=== PATIENT | female | born 1955 | race Caucasian/White ===

== ENCOUNTER 2020-04-12 12:58 | Outpatient (CLI) | payer MEDICARE, OTHER, SELFPAY ==
--- NOTE | ~2020-04-12 | CT_ITS ---
EXAMINATION: CT abdomen pelvis wo con DATE: 04/12/2020 13:22 INDICATION: Acute flank pain TECHNIQUE: Computed tomography (CT) of the abdomen and pelvis was performed without intravenous contr ast. Automated exposure control and iterative reconstruction technique were employed. The dose-length product was 388.61 mGy-cm. COMPARISON: 07/29/2019 FINDINGS: In seen are a few <4 mm nodules at the bilateral lung bases which are likely benign.. Heart size is n ormal. Atherosclerotic coronary artery calcifications. No pericardial or pleural effusion. Liver, spl een, pancreas and bilateral adrenal glands are normal. Tiny focus of mural calcification at the gallb ladder fundus. Multiple bilateral renal cysts the largest on the left measuring up to 2.5 cm. There a re 2 tiny calcifications at the largest measuring 1-2 mm along the periphery of the largest left huang l cyst. No other calcifications at the kidneys or along the course of the normal ureters. No hydronep hrosis. Bladder is normal. Partially decompressed bladder is normal. There is moderate colonic divert iculosis with a sigmoid predominance. There is no adjacent inflammatory change to suggest diverticul itis. Small bowel and appendix are normal. Small fat-containing umbilical hernia. The uterus is not i dentified and has likely been surgically resected. No free intraperitoneal gas or fluid. No pathologi francis enlarged abdominal or pelvic lymphadenopathy. There is calcified atherosclerosis of the aorta a nd many of the other arteries. Multiple phleboliths in the pelvis. Moderate lumbar spondylosis with s evere lower lumbar facet osteoarthritis. IMPRESSION: 1. Couple <2 mm calcifications in the left kidney which could represent mural calcification at the pe riphery of a 2.5 cm left renal cyst or nonobstructing nephrolithiasis. No other urolithiasis or hydro nephrosis. 2. Diverticulosis. Reviewed, dictated and finalized at location A. IMPRESSION: 1. Couple <2 mm calcifications in the left kidney which could represent mural c alcification at the periphery of a 2.5 cm left renal cyst or nonobstructing nep hrolithiasis. No other urolithiasis or hydronephrosis. 2. Diverticulosis.
== END 2020-04-12 12:59 | disposition home or self-care (01) ==
LOC: ANHIMG 13:02
PROVIDERS: PCP Family Medicine; Visit Provider Family Medicine
DX: R10.9 Unspecified abdominal pain (principal); N20.2 Calculus of kidney with calculus of ureter; K57.90 Diverticulosis of intestine, part unspecified, without perforation or abscess without bleeding
CPT/HCPCS: 74176

== ENCOUNTER 2020-12-07 10:37 | Outpatient (CLI) | payer MEDICARE, OTHER, SELFPAY ==
--- NOTE | ~2020-12-07 | MM_ITS ---
EXAMINATION: MM screening [facility] BI w isabel HISTORY: Screening mammogram TECHNIQUE: Craniocaudal and mediolateral oblique 3-D tomosynthesis images were obtained and synthetic 2-D images were generated. CAD analysis was submitted and interpreted. COMPARISON: 10/07/2017, 10/23/2009 BREAST PARENCHYMAL COMPOSITION: The breasts are almost entirely fatty. FINDINGS: There is no evidence of suspicious mass, calcification, or architectural distortion to sugg est malignancy in either breast. There has been no suspicious interval change. IMPRESSION: 1. No mammographic evidence of malignancy. 2. Recommend routine screening mammography in one year. BI-RADS Category 1: Negative Reviewed, dictated and finalized at location A. 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
== END 2020-12-07 10:38 | disposition home or self-care (01) ==
LOC: ANHIMG 10:42
PROVIDERS: PCP Family Medicine; Visit Provider Family Medicine
DX: Z12.31 Encounter for screening mammogram for malignant neoplasm of breast (principal)
CPT/HCPCS: 77063; 77067

== ENCOUNTER 2020-12-18 14:23 | Outpatient (CLI) | payer MEDICARE, OTHER, SELFPAY ==
--- NOTE | ~2020-12-18 | MR_ITS ---
EXAMINATION: MR lumbar spine wo con EXAM DATE: 12/18/2020 15:29 INDICATION: M54.42 - Lumbago with sciatica, left side. TECHNIQUE: Multi-sequential, multiplanar MR images of the lumbar spine were obtained without contrast . Sagittal T1, T2, T2 fat saturation images. Axial T2 weighted images. There is no prior study for comparison. FINDINGS: There is mild to moderate thoracolumbar dextroscoliosis. Moderate disc disease L1-2 and L2- 3, mild to moderate at L3-4. There is 4 mm anterolisthesis L4 on L5 without spondylolysis. The conus medullaris terminates at the L1/2 level and has normal signal intensity and morphology. There are no suspicious marrow signal abnormalities. Numerous renal fluid signal intensity lesions statistically most likely cysts. Level by level evaluation: T12-L1: There is a mild diffuse disc bulge. Facet arthropathy: Mild. Neural foraminal stenosis: No stenosis. Central canal stenosis: No stenosis. L1-L2: There is a mild to moderate diffuse disc bulge. Facet arthropathy: Mild to moderate. Neural foraminal stenosis: Mild to moderate left. Central canal stenosis: Minimal. L2-L3: There is a moderate diffuse disc bulge. Facet arthropathy: Moderate. Neural foraminal stenosis: Moderate left, mild to moderate right. Central canal stenosis: Mild. L3-L4: There is a moderate diffuse disc bulge superimposed small right central protrusion narrowing l ateral recess. Facet arthropathy: Moderate. Neural foraminal stenosis: Moderate right, mild left. Central canal stenosis: Mild. L4-L5: There is a mild to moderate diffuse disc bulge. Facet arthropathy: Severe . Ligamentum flavum enlargement. Neural foraminal stenosis: Mild bilateral. Central canal stenosis: Mild to moderate. L5-S1: There is a mild diffuse disc bulge. Facet arthropathy: Severe right, moderate left. Neural foraminal stenosis: Mild to moderate left, mild right. Central canal stenosis: Mild. IMPRESSION: 1. L3-4 disc bulge, right central protrusion narrowing lateral recess. Potentially could be affectin g traversing L4 nerve root. 2. Overall moderate lumbar spondylosis as detailed above. 3. Mild to moderate thoracolumbar dextroscoliosis. Reviewed, dictated and finalized at location B. 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 L3-4 disc bulge, right central protrusion narrowing lateral recess. Potenti ally could be affecting traversing L4 nerve root. 2. Overall moderate lumbar spondylosis as detailed above. 3. Mild to moderate thoracolumbar dextroscoliosis.
== END 2020-12-18 14:24 | disposition home or self-care (01) ==
PROVIDERS: PCP Family Medicine; Visit Provider Family Medicine
DX: M54.41 Lumbago with sciatica, right side (principal); M54.42 Lumbago with sciatica, left side; M51.26 Other intervertebral disc displacement, lumbar region; M47.816 Spondylosis without myelopathy or radiculopathy, lumbar region; M41.85 Other forms of scoliosis, thoracolumbar region
CPT/HCPCS: 72148

== ENCOUNTER 2021-11-07 10:02 | Emergency (ER) | payer MEDICARE, OTHER, SELFPAY ==
--- NOTE | ~2021-11-07 | XR_ITS ---
EXAMINATION: XR knee RT min 4V EXAM DATE: 11/07/2021 10:40 INDICATION: right knee pain after a fall 3 weeks ago . TECHNIQUE: Right knee frontal, crosstable lateral, orthogonal oblique projections for interpretation . [place] projection. There are no prior studies for comparison. FINDINGS: Trace right knee joint effusion. There is moderate tricompartmental primary osteoarthriti s. There are no acute fractures or dislocations identified. There is no subcutaneous gas. The soft tissue is unremarkable. There are no radiopaque foreign bodies. IMPRESSION: 1. XR knee RT min 4V exam without acute osseous findings. 2. Moderate osteoarthritis. Reviewed, dictated and finalized at location A. 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
--- NOTE | 2021-11-07 10:16 | ED.LOWEXIN ---
HPI - Extremity Injury (Lower) General Chief Complaint: Extremity Injury, Lower Stated Complaint: rt knee pain Time Seen by Provider: 11/07/21 10:24 Source: patient, RN notes reviewed and old records reviewed Mode of arrival: ambulatory Limitations: no limitations History of Present Illness HPI Narrative: 66 year old female presents to [facility] with complaints of having chronic pain to her right knee but she fell 3 weeks ago in her basement and now is having increased discomfort to lateral aspect of her right knee. Patient states that she takes daily Mobic and has been applying heat to her knee intermittently. Patient states that ambulation aggravates her pain, she is able to bend her right knee without difficulty and no increase in pain on inversion or eversion maneuvers, some mild swelling noted to right knee. MD complaint: knee injury Onset (ago): week(s) (3) Injury: Right: knee Place: home Context: fall Treatments prior to arrival: other (Mobic) Related Data Home Medications Medication Instructions Recorded Confirmed cetirizine 10 mg tablet 10 mg PO DAILY PRN 08/01/20 11/07/21 Allergies Allergy/AdvReac Type Severity Reaction Status Date / Time latex AdvReac Mild Hives Verified 11/07/21 10:28 Contrast Media Allergy Severe Swelling Uncoded 11/07/21 10:28 of Lip/Tongue/Throat Review of Systems Review of Systems: CONSTITUTIONAL: Denies fever, chills, or sweats. EYES: Denies visual changes, redness, or discharge. ENT: Denies rhinorrhea, congestion, sore throat, or otalgia. CARDIOVASCULAR: Denies chest pain, palpitations, or edema. RESPIRATORY: Denies cough or dyspnea. GASTROINTESTINAL: Denies abdominal pain, nausea, vomiting, or diarrhea. GENITOURINARY: Denies dysuria or hematuria. SKIN: Denies rash or itching. MUSCULOSKELETAL: Denies back pain, positive right knee joint pain, or myalgia. NEUROLOGIC: Denies headache, numbness, or weakness. PSYCHIATRIC: Positive history of anxiety or depression. All systems reviewed & are unremarkable except as noted in HPI and below PMFSH Past Medical History Medical History Acute abdominal pain in right flank Acute bilateral low back pain without sciatica Acute non-recurrent maxillary sinusitis Anxiety BMI 35.0-35.9,adult Breast cancer screening by mammogram Chronic pain of right knee Colon cancer screening Fever blister Grieving Low back pain with bilateral sciatica Mild peripheral edema Overactive bladder Rash UTI (urinary tract infection) (07/14/20) Surgical History Surgical History (Updated 11/07/21 @ 10:22 by Padmini Arias NP) History of hysterectomy Family History Family History Grandparent Asthma, Onset Age: 55 Acute myocardial infarction, Onset Age: 60 Family history of chronic obstructive pulmonary disease, Onset Age: 60 Mother Family history of cardiovascular disease, Onset Age: 71 Family history of chronic obstructive pulmonary disease, Onset Age: 71 Social History Social History Smoking status: Never smoker Alcohol intake: never Substance use: never Substance use type: does not use Comments At time of signature, agree with nursing past medical, surgical, social and family history. There is no relevant family history pertinent to the presenting complaint Exam Narrative: GENERAL: Well-appearing, well-nourished, and in no acute distress. HEAD: Normocephalic, atraumatic. EYES: PERRLA and EOMI. ENT: Nares clear, no rhinorrhea or epistaxis. Mucous membranes moist. TM's normal with good light reflex, throat pink with no lesions or exudates no tonsil enlargement. NECK: Supple.no lymphadenopathy CHEST: Clear to auscultation. No respiratory distress. SAO2 96% on room air HEART: Regular rate and rhythm. No murmur heard. Normal peripheral pulses. ABDOMEN: Soft, nontender, nondistended,
[2021-11-07 10:17] VITALS: BP 152/88; PULSE 73; RESP 18; TEMP 36.4; O2SAT 96
== END 2021-11-07 11:04 | disposition home or self-care (01) ==
PROVIDERS: Emergency Provider Registered Nurse; PCP Family Medicine
DX: M25.561 Pain in right knee (principal); M17.11 Unilateral primary osteoarthritis, right knee
CPT/HCPCS: 73564; 99213; G0463

== ENCOUNTER 2022-04-02 09:53 | Outpatient (CLI) | payer MEDICARE, OTHER, SELFPAY ==
--- NOTE | ~2022-04-02 | MM_ITS ---
EXAMINATION: MM screening [facility] BI w isabel HISTORY: Screening mammogram TECHNIQUE: Craniocaudal and mediolateral oblique 3-D tomosynthesis images were obtained and synthetic 2-D images were generated. CAD analysis was submitted and interpreted. COMPARISON: 12/07/2020, 10/07/2017 bilateral screening mammogram examinations BREAST PARENCHYMAL COMPOSITION: The breasts are almost entirely fatty. FINDINGS: There is no evidence of suspicious mass, calcification, or architectural distortion to sugg est malignancy in either breast. There has been no suspicious interval change. IMPRESSION: 1. No mammographic evidence of malignancy. 2. Recommend routine screening mammography in one year. BI-RADS Category 1: Negative Reviewed, dictated and finalized at location A.
== END 2022-04-02 09:54 | disposition home or self-care (01) ==
PROVIDERS: PCP Family Medicine; Visit Provider Family Medicine
DX: Z12.31 Encounter for screening mammogram for malignant neoplasm of breast (principal)
CPT/HCPCS: 77063; 77067

== ENCOUNTER 2022-05-03 09:23 | Outpatient (CLI) | payer MEDICARE, OTHER, SELFPAY ==
--- NOTE | ~2022-05-03 | CT_ITS ---
EXAMINATION: CT abdomen pelvis wo/w con DATE: 05/03/2022 10:04 INDICATION: Intermittent gross hematuria TECHNIQUE: Computed tomography (CT) of the abdomen and pelvis was performed without and subsequently with 130 CC Omnipaque 300 intravenous contrast. Automated exposure control and iterative reconstructi on technique were employed. Exam dose: 1710.38 mGy-cm total exam DLP. COMPARISON: 05/03/2022 KUB 04/12/2020 CT abdomen pelvis FINDINGS: The lung bases are clear. Heart size is within normal limits. No pericardial or pleural eff usion. 6 mm hepatic cyst. Otherwise no hepatic space-occupying mass lesion. Normal splenic size. No pancreat ic mass lesion or calcification or ductal dilatation. The gallbladder is unremarkable. No bile duct dilatation. Normal morphology of the adrenal glands. Innumerable cysts of variable size scattered throughout both kidneys, measuring up to 1.4 cm on the r ight and 2.3 cm on the left. Approximately 3.6 x 5.2 mm nonobstructing mid right renal calculus. There are several left renal calcifications, 2 apparently associated with an up to 2.3 cm lateral lef t lower pole renal cyst and the other probably a pinpoint calyceal stone. No ureteral calculus or hydroureteronephrosis is noted on either side. Diverticulosis of left and right colon; no CT evidence of diverticulitis. Normal appendix. No bowel o bstruction, bowel wall thickening, pneumatosis or intraperitoneal free air. Status post hysterectomy. There is atherosclerotic calcification of the abdominal aorta and at the origins of the celiac and tai perior mesenteric and renal arteries. No abdominal aortic aneurysm. No intraperitoneal or retroperito kirsten or pelvic mass lesion or adenopathy or ascites. Small fat-containing umbilical hernia. No suspicious osteolytic or osteoblastic lesions. Diffuse idiopathic skeletal hyperostosis of the thoracic spine. Multilevel degenerative disc disease of the lumbar spine, most prominent at L1-2, L2-3 and L3-4, and degenerative change at the apophyseal joints, with associated grade 1 anterolisthesis at L4-5. IMPRESSION: Innumerable bilateral renal cysts Bilateral nonobstructive nephrolithiasis; no urinary tract calculus or hydroureteronephrosis Diverticulosis of left and right colon; no evidence of diverticulitis Status post hysterectomy Reviewed, dictated and finalized at Location A. Reviewed, dictated and finalized at location B. IMPRESSION: Innumerable bilateral renal cysts Bilateral nonobstructive nephrolithiasis; no urinary tract calculus or hydroure teronephrosis Diverticulosis of left and right colon; no evidence of diverticulitis Status post hysterectomy
--- NOTE | ~2022-05-03 | XR_ITS ---
EXAMINATION: XR abdomen/kub 1V DATE: 05/03/2022 09:41 INDICATION: Intermittent gross hematuria. Bilateral flank pain. TECHNIQUE: A supine view of the abdomen on 2 radiographs was obtained. COMPARISON: CT abdomen and pelvis 05/03/2022 FINDINGS: There are no dilated loops of bowel. There is a 4 mm stone in right kidney. The kidneys are obscured by bowel. There are phleboliths in right ovarian vein. There are phleboliths in the pelvis. IMPRESSION: 1. 4 mm stone in right kidney. Reviewed, dictated and finalized at location A.
[2022-05-03 09:48] LABS: Estimated Glomerular Filt Rate > 60
== END 2022-05-03 09:24 | disposition home or self-care (01) ==
PROVIDERS: PCP Family Medicine; Visit Provider Nurse Practitioner Family
DX: R31.0 Gross hematuria (principal); N20.0 Calculus of kidney; K57.30 Diverticulosis of large intestine without perforation or abscess without bleeding; K42.9 Umbilical hernia without obstruction or gangrene; M48.14 Ankylosing hyperostosis [Forestier], thoracic region; I70.0 Atherosclerosis of aorta; M47.816 Spondylosis without myelopathy or radiculopathy, lumbar region; N28.1 Cyst of kidney, acquired
CPT/HCPCS: 74018; 74178; Q9967

== ENCOUNTER 2022-05-07 08:17 | Outpatient (RCR) | payer MEDICARE, OTHER, SELFPAY ==
[2022-05-07] MEDS: diphenhydrAMINE HCl CAP 25 MG CAPSULE PO (08:46)
[2022-05-07] MEDS: FAMOTIDINE 20 MG TABLET PO (08:46)
[2022-05-07] MEDS: ACETAMINOPHEN 325 MG TABLET 650 MG PO (08:46)
[2022-05-07 08:51] VITALS: BP 99/59; PULSE 90; RESP 18; TEMP 36.6; O2SAT 95
[2022-05-07] MEDS: BEBTELOVIMAB 175 MG/2 ML VIAL IV PUSH (09:19)
[2022-05-07 10:04] VITALS: BP 107/74; PULSE 75; RESP 18; O2SAT 99
== END 2022-05-07 16:00 ==
LOC: AMCINF 08:17
PROVIDERS: PCP Family Medicine; Referring Provider Family Medicine; Visit Provider Internal Medicine Hematology & Oncology
DX: U07.1 COVID-19 (principal); I10 Essential (primary) hypertension
CPT/HCPCS: A9270; M0222; Q0222

== ENCOUNTER 2023-04-18 16:10 | Outpatient (CLI) | payer MEDICARE, OTHER, SELFPAY ==
--- NOTE | ~2023-04-18 | XR_ITS ---
EXAM: XR lumbar spine min 4V DATE: 04/18/2023 16:34 HISTORY: M54.42 - Lumbago with sciatica, left side . COMPARISON: MR lumbar spine 12/18/2020; CT abdomen and pelvis 05/03/2022. FINDINGS: 5 nonrib-bearing lumbar-type vertebral bodies. Pedicles intact. Moderate scoliosis. Mild d egenerative change in the bilateral SI joints. Scattered pelvic phleboliths and diverticular calcific ations. 5 mm retrolisthesis at L2-3. 8 mm anterolisthesis at L4-5. Multilevel moderate and severe dis c space narrowing, with vacuum phenomenon at L2-3 and L3-4. Severe facet hypertrophy and sclerosis at L4-5 and L5-S1. Interspinous narrowing at L3-4. IMPRESSION: Grade 1 listheses at L2-3 and L4-5, both have progressed since the prior examinations. Mu ltilevel severe lumbar degenerative disc disease. Multilevel severe lower lumbar facet arthropathy. Reviewed, dictated and finalized at location K. IMPRESSION: Grade 1 listheses at L2-3 and L4-5, both have progressed since the prior examinations. Multilevel severe lumbar degenerative disc disease. Multile areli severe lower lumbar facet arthropathy.
== END 2023-04-18 16:11 | disposition home or self-care (01) ==
PROVIDERS: PCP Family Medicine; Visit Provider Nurse Practitioner Family
DX: M54.42 Lumbago with sciatica, left side (principal); M54.41 Lumbago with sciatica, right side; G89.29 Other chronic pain; M51.36 Other intervertebral disc degeneration, lumbar region
CPT/HCPCS: 72110

== ENCOUNTER 2023-09-11 09:17 | Outpatient (CLI) | payer MEDICARE, OTHER, SELFPAY ==
--- NOTE | ~2023-09-11 | CT_ITS ---
CT of the Abdomen and Pelvis: Indication: UTI Technique: 2.5 mm axial scans were obtained through the abdomen and pelvis prior to and following in travenous administration of 130 cc of Omnipaque 350. Dose reduction technique was used on this scan b y utilizing automated exposure control and iterative reconstruction technique. The dose-length produc t (DLP) was 2501.83 mGy-cm. COMPARISON: 05/03/2022 Findings: Scans through the lung bases demonstrates stable subcentimeter left basilar pulmonary nodu les. There is a 1.3 x 1.1 cm stone at the right renal pelvis. There is an additional 3 mm right lower pole renal stone. Innumerable small bilateral renal cysts are present, similar to prior exam. The liver, spleen, pancreas, gallbladder, and adrenal glands are within normal limits. There are athe rosclerotic calcifications of the aorta. No lymphadenopathy. No bowel obstruction or bowel wall thickening. There is no evidence to suggest acute appendicitis. Images through the pelvis were performed. Urinary bladder unremarkable. No pelvic mass seen. No ascit es. Impression: 1.3 x 1.1 cm stone at the right renal pelvis. No hydronephrosis. Additional 3 mm right lower pole renal stone. Small bilateral renal cysts, similar to prior exam. Reviewed, dictated and finalized at [facility]. 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 No hydronephrosis. Additional 3 mm right lower pole renal stone. Small bilateral renal cysts, similar to prior exam.
[2023-09-11 09:41] LABS: Estimated Glomerular Filt Rate > 60
== END 2023-09-11 09:18 | disposition home or self-care (01) ==
DX: N39.0 Urinary tract infection, site not specified (principal); N28.1 Cyst of kidney, acquired; N20.0 Calculus of kidney
CPT/HCPCS: 74178; Q9967

== ENCOUNTER 2023-09-24 11:43 | Outpatient (CLI) | payer MEDICARE, OTHER, SELFPAY ==
--- NOTE | ~2023-09-24 | XR_ITS ---
EXAMINATION: XR abdomen/kub 1V INDICATION: Calcium kidney stones TECHNIQUE: Supine views of the abdomen were obtained on 2 radiographs. COMPARISON: 05/03/2022; CT, 09/11/2023 FINDINGS: There is a 1.6 cm stone of the right kidney lower pole. No additional urolithiasis is ident ified. Phleboliths are noted in the pelvis. The bowel gas pattern is normal. There is moderate lumbar spondylosis. There is moderate osteoarthritis of the hips. IMPRESSION: 1. Right nephrolithiasis. Reviewed, dictated and finalized at location B. 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 Right nephrolithiasis.
== END 2023-09-24 11:44 | disposition home or self-care (01) ==
PROVIDERS: PCP Family Medicine
DX: N20.0 Calculus of kidney (principal)
CPT/HCPCS: 74018

== ENCOUNTER 2024-02-20 13:29 | Emergency (ER) | payer MEDICARE, OTHER, SELFPAY ==
--- NOTE | ~2024-02-20 | CT_ITS ---
EXAMINATION: CT abdomen pelvis wo con DATE: 02/20/2024 15:20 INDICATION: Blood in stool. Low back pain. TECHNIQUE: Computed tomography (CT) of the abdomen and pelvis was performed without intravenous contr ast. Automated exposure control and iterative reconstruction technique were employed. The dose-length product was 840.36 mGy-cm. COMPARISON: CT abdomen and pelvis 09/11/2023 FINDINGS: The visualized portions of the lung bases demonstrate mild atelectasis. A calcified left evangelina ng nodule is consistent with old granulomatous disease. No pleural effusion. The heart size is normal . There are coronary artery calcifications. No pericardial effusion. The liver, spleen, gallbladder, pancreas, and adrenal glands are normal. There is a 14 mm staghorn calculus in right kidney. There is a 9 mm stone in right kidney. There is a 13 mm cyst in left kidney. There is a 14 mm cyst in left ki dney with punctate wall calcifications. There is diverticulosis of the colon without evidence of dive rticulitis. The appendix is normal. There are no dilated loops of bowel. There are no pathologically enlarged lymph nodes. There is no free intraperitoneal fluid. There is mild thoracic spondylosis and severe lumbar spondylosis. IMPRESSION: 1. Nonobstructing right kidney stones. Reviewed, dictated and finalized at location A.
[2024-02-20 13:34] VITALS: BP 141/71; PULSE 84; RESP 20; TEMP 36.5; O2SAT 97
--- NOTE | 2024-02-20 15:03 | ED.GIBLEED ---
HPI - GI Bleed General Chief complaint: GI Bleed <Mone Corbin PA-C - Last Filed: 02/20/24 15:07> Stated complaint: blood in stool <Mone Corbin PA-C - Last Filed: 02/20/24 15:07> Time Seen by Provider: 02/20/24 15:03 <ALMA DELIA Chance Last Filed: 02/20/24 15:07> Focused HPI: Patient is a 69 y/o female presents the ED with report of rectal bleeding. Patient reports she had an episode of rectal bleeding this week and didn't think much of it. She then had a bowel movement today and notice a large amount of bright red blood the toilet afterwards. She states there were several clots in blood. Unsure if it was mixed in with the stool. She has been dealing with lower back pain which she has attributed to her history of kidney stones, denies abdominal pain, nausea, vomiting, fevers. She takes ASA 81mg daily, no other blood thinners. Denies known hx of hemorrhoids. GENERAL: Well-appearing, well-nourished, and in no acute distress. HEAD: Normocephalic, atraumatic. CHEST: Clear to auscultation. ?No respiratory distress. HEART: Regular rate and rhythm.? ABD: No tenderness throughout abdomen. Normoactive BS. NEURO: ?Alert and oriented x3. Patient screened in triage and initial orders placed.? ?Additional care and disposition to be based upon?diagnostic testing and treatment. <Mone Corbin PA-C - Last Filed: 02/20/24 15:07> Source: patient <Mone Corbin PA-C - Last Filed: 02/20/24 15:07> Mode of arrival: ambulatory <ALMA DELIA Chance Last Filed: 02/20/24 15:07> Limitations: no limitations <ALMA DELIA Chance Last Filed: 02/20/24 15:07> History of Present Illness HPI Narrative: Agree with HPI <Anatoly Ruiz MD - Last Filed: 02/20/24 17:04> Related Data Home medications: Home Medications Medication Instructions Recorded Confirmed cetirizine 10 mg tablet (Zyrtec) 10 mg PO DAILY PRN allergy symptoms 08/01/20 09/24/23 fluticasone propionate 50 1 spray intranasal BID 03/05/22 09/24/23 mcg/actuation nasal spray,suspension <Mone Corbin PA-C - Last Filed: 02/20/24 15:07> Allergies/Adverse reactions: Allergies Allergy/AdvReac Type Severity Reaction Status Date / Time latex AdvReac Mild Hives Verified 02/20/24 13:31 Contrast Media Allergy Severe Swelling Uncoded 11/07/21 10:28 of Lip/Tongue/Throat <Mone Corbin PA-C - Last Filed: 02/20/24 15:07> Review of Systems Review of Systems: All systems reviewed & are unremarkable except as noted in HPI and below <Anatoly Ruiz MD - Last Filed: 02/20/24 17:04> Constitutional: Constitutional: Reports no additional constitutional complaints <Anatoly Ruiz MD - Last Filed: 02/20/24 17:04> ENT: Reports system reviewed and no additional complaints, except as documented <Anatoly Ruiz MD - Last Filed: 02/20/24 17:04> Cardiovascular: Cardiovascular: Reports no additional cardiovascular complaints <Anatoly Ruiz MD - Last Filed: 02/20/24 17:04> Respiratory: Respiratory: Reports no additional respiratory complaints <Anatoly Ruiz MD - Last Filed: 02/20/24 17:04> Gastrointestinal: Gastrointestinal: Reports no additional gastrointestinal complaints <Anatoly Ruiz MD - Last Filed: 02/20/24 17:04> Musculoskeletal: Musculoskeletal: Reports no additional musculoskeletal complaints <Anatoly Ruiz MD - Last Filed: 02/20/24 17:04> [facility] Past Medical History Medical History: Medical History Acute abdominal pain in right flank Acute bilateral low back pain without sciatica Acute non-recurrent maxillary sinusitis Acute sinusitis Allergic rhinitis Anxiety Arthritis At low risk for fall At moderate risk for fall (~09/12/22) patient fell twice within 1 year after tripping on dog and also stepping in a hole. Benign paroxysmal positional vertigo due to bilateral vestibular disorder (~2021)
[2024-02-20 15:40] LABS: Basophils Absolute Auto 0.1 K/mm3 (0.0-0.1); Basophils Percent Auto 0.8 % (0.2-1.2); Eosinophils Absolute Auto 0.2 K/mm3 (0-0.3); Eosinophils Percent Auto 2.8 % (0-4.4); Hematocrit 39.3 % (37.0-47.0); Hemoglobin 12.3 g/dL (12.0-15.0); Immature Granulocyte Absolute 0.03 K/mm3 (0.00-0.031); Immature Granulocyte Percent A 0.4 % (0-0.5); Lymphocytes Absolute Auto 2.49 K/mm3 (0.9-3.2); Lymphocytes Percent Auto 34.4 % (18.3-44.2); Mean Corpuscular HGB Conc 31.3 g/dl (32-36); Mean Corpuscular Volume 89.3 fl (80-100); Mean Platelet Volume 9.9 fl (7.4-10.4); Monocytes Absolute Auto 0.5 K/mm3 (0.1-0.6); Monocytes Percent Auto 6.2 % (2.6-8.5); Neutrophils Percent Auto 55.4 % (45.5-73.1); Platelet Count Result 238 k/mm3 (150-375); Red Cell Distribution Width 13.1 % (11.5-14.5); White Blood Count 7.2 K/mm3 (4.5-10.0)
[2024-02-20 15:50] LABS: Prothrombin Time 13.7 Seconds (11.1-14.7)
[2024-02-20 15:51] LABS: Partial Thromboplastin Time 29.9 Seconds (22.3-36.8)
[2024-02-20 16:04] LABS: Alanine Aminotransferase 15 U/L (6-35); Albumin Level 4.2 g/dL (3.5-5.1); Alkaline Phosphatase 67 U/L (38-126); Anion Gap 5 mmol/L (4-12); Aspartate Amino Transferase 20 U/L (14-36); Bilirubin,Total 0.8 mg/dL (0.2-1.3); Blood Urea Nitrogen 18 mg/dL (7-17); Calcium 9.3 mg/dL (8.4-10.2); Carbon Dioxide 28 mmol/L (22-30); Chloride 105 mmol/L (98-107); Estimated CRCL calculation 81 ml/min; Estimated Glomerular Filt Rate > 60; Glucose 92 mg/dL (65-110); Potassium 3.7 mmol/L (3.4-5.0); Sodium 138 mmol/L (137-145)
[2024-02-20 17:13] VITALS: BP 155/86; PULSE 70; RESP 16; O2SAT 100
== END 2024-02-20 17:15 | disposition home or self-care (01) ==
PROVIDERS: Physician Assistant; Emergency Provider Emergency Medicine; PCP Family Medicine
DX: K92.2 Gastrointestinal hemorrhage, unspecified (principal); E66.9 Obesity, unspecified; Z68.31 Body mass index [BMI] 31.0-31.9, adult; N32.81 Overactive bladder; M17.11 Unilateral primary osteoarthritis, right knee; Z87.440 Personal history of urinary (tract) infections; Z86.16 Personal history of COVID-19; Z90.710 Acquired absence of both cervix and uterus; Z79.82 Long term (current) use of aspirin; N20.0 Calculus of kidney
CPT/HCPCS: 36415; 74176; 80053; 85025; 85610; 85730; 86850; 86900; 86901; 99284

== ENCOUNTER 2024-03-17 07:40 | Day surgery (SDC) | payer MEDICARE, OTHER, SELFPAY ==
[2024-03-09 15:04] VITALS: BMI 31.6
[2024-03-10 14:25] VITALS: BMI 30.7
[2024-03-17 08:32] VITALS: BP 150/75; PULSE 70; RESP 16; TEMP 36.8; O2SAT 98
[2024-03-17] MEDS: LACTATED RINGERS 1,000 ML 150 ML IV CONT (08:35)
--- NOTE | 2024-03-17 09:06 | WPDANESEPPF ---
Anes - Initial Pre Proc Eval Procedure: Operation Date: 03/17/24 10:00 Proposed Procedures p Diagnostic Colonoscopy - Dayday Hardy MD Date/Time: 03/17/24 09:06 Surgeon: Dayday Hardy MD Pre Op Diagnosis: Melena, Gastrointestinal Hemorrhage Patient Data Age: 69 Gender: F Height: 1.68 m Weight: 85.3 kg Last Vital Signs Temp 36.8 C 03/17/24 08:32 Pulse 70 03/17/24 08:32 Resp 16 03/17/24 08:32 BP 150/75 H 03/17/24 08:32 Pulse Ox 98 03/17/24 08:32 O2 Del Method Room Air 03/17/24 08:32 Allergies Allergy/AdvReac Type Severity Reaction Status Date / Time latex AdvReac Mild Hives Verified 03/17/24 08:31 Contrast Media Allergy Severe Swelling Uncoded 03/17/24 08:31 of Lip/Tongue/Throat Home Medications Medication Instructions Recorded Confirmed Type cetirizine 10 mg tablet (Zyrtec) 10 mg PO DAILY PRN allergy symptoms 08/01/20 03/17/24 History fluticasone propionate 50 1 spray intranasal BID 03/05/22 03/17/24 History mcg/actuation nasal spray,suspension meclizine 25 mg tablet 25 mg PO TID PRN dizziness #60 tabs 12/05/22 03/17/24 Rx duloxetine 60 mg capsule,delayed 60 mg PO DAILY #90 caps 04/01/23 03/17/24 Rx release (Cymbalta) lisinopril 40 mg tablet 40 mg PO . b.i.d. #180 tabs 09/03/23 03/17/24 Rx simvastatin 40 mg tablet 40 mg PO QHS #90 tabs 09/03/23 03/17/24 Rx meloxicam 15 mg tablet 15 mg PO DAILY PRN pain #90 tabs 09/22/23 03/17/24 Rx amlodipine 2.5 mg tablet 2.5 mg PO DAILY #90 tabs 09/24/23 03/17/24 Rx vibegron 75 mg tablet (Gemtesa) 75 mg PO DAILY 03/03/24 03/17/24 History Patient hx anesthesia problems: none Family hx anesthesia problems: none Results Review: All pre-operative results and documents have been reviewed as part of the pre-operative evaluation. [facility] Past Medical History Medical History Acute abdominal pain in right flank Acute bilateral low back pain without sciatica Acute non-recurrent maxillary sinusitis Acute sinusitis Allergic rhinitis Anxiety Arthritis At low risk for fall At moderate risk for fall (~09/12/22) patient fell twice within 1 year after tripping on dog and also stepping in a hole. Benign paroxysmal positional vertigo due to bilateral vestibular disorder (~2021) BMI 32.0-32.9,adult BMI 33.0-33.9,adult BMI 35.0-35.9,adult Breast cancer screening by mammogram Normal mammogram 04/02/2022. Chronic pain of right knee X-ray on 11/07/2021 reveals moderate tricompartmental osteoarthritis with small effusion. Colon cancer screening Conjunctivitis COVID-19 (05/04/22) tested positive 05/05/2022. COVID-19 (03/12/23) 2nd episode starting 03/12/2023. Ear itching Fatigue TSH normal at 1.68 hemoglobin 13.3 on 09/17/2023. Fever blister Grieving Gross hematuria (~03/2023) Urinalysis with 3+ blood, 2+ protein, 3+ leukocytes, bacteria on 09/17/2023. Hypertrophy of both inferior nasal turbinates Low back pain with bilateral sciatica X-ray of the lumbar spine on 04/18/2023 reveals diffuse moderate multilevel degenerative disc disease and severe degenerative disc disease at L2-L3 and L3-L4 with severe facet arthropathy at L4-L5 and L5-S1 with anterior listhesis 8 mm L4 on L5 and retrolisthesis of 5 mm on L2-L3. Moderate scoliosis. Mild peripheral edema Nasal congestion Nasal obstruction Nasal septal deviation Obesity (BMI 30.0-34.9) Osteoarthritis of right knee Otalgia of both ears Overactive bladder PND (post-nasal drip) Rhinorrhea Seasonal allergies UTI (urinary tract infection) UTI (urinary tract infection), uncomplicated (07/14/20) Surgical History Surgical History H/O lithotripsy History of hysterectomy Family History Family History Grandparent Asthma, Onset Age: 55 Acute myocardial infarction, Onset Age: 60 Family history of chronic obstructive pulmonary disease, On
--- NOTE | 2024-03-17 09:11 | WPDHPUPDATE1 ---
History and Physical Update Update Date/Time: 03/17/24 09:11 History and Physical has been reviewed, including an updated exam of the patient. There are NO changes in the patient's condition. Risks, benefits, and alternatives have been discussed and questions answered. Patient agrees to proceed with procedure.
[2024-03-17 09:57] VITALS: BP 130/73; PULSE 78; RESP 16
[2024-03-17 10:07] VITALS: BP 159/82; PULSE 62; RESP 16; O2SAT 99
[2024-03-17 10:20] VITALS: BP 146/75; PULSE 62; RESP 16; O2SAT 100
--- NOTE | 2024-03-17 10:56 | WPDANESPN ---
Anes - Prog Note Post-Op Date/Time: 03/17/24 10:56 Cardiovascular status: normal Respiratory status: normal Airway patency: baseline Mental status: baseline Post-Op hydration status: normal Vital Signs: Last Vital Signs Temp 36.8 C 03/17/24 08:32 Pulse 62 03/17/24 10:20 Resp 16 03/17/24 10:20 BP 146/75 H 03/17/24 10:20 Pulse Ox 100 03/17/24 10:20 O2 Del Method Room Air 03/17/24 10:20 Pain Score (VAS): 0 I/O: Intake & Output 03/16/24 03/17/24 03/17/24 23:59 07:59 15:59 Intake Total 600 Balance 600 Patient Feedback: Patient satisfied with anesthetic care.
== END 2024-03-17 10:31 | disposition home or self-care (01) ==
PROVIDERS: PCP Family Medicine; Visit Provider Internal Medicine Gastroenterology
PROC: 0DJD8ZZ Inspection of Lower Intestinal Tract, Via Natural or Artificial Opening Endoscopic (ICD-10-PCS; CPT 45378; principal; 2024-03-17 10:00)
DX: K62.5 Hemorrhage of anus and rectum (principal); K57.30 Diverticulosis of large intestine without perforation or abscess without bleeding; K64.8 Other hemorrhoids
CPT/HCPCS: 45378

== ENCOUNTER 2025-06-26 14:36 | Emergency (ER) | payer MEDICARE, SELFPAY ==
--- NOTE | ~2025-06-26 | XR_ITS ---
EXAMINATION: XR chest 2V, 06/26/2025 16:42 CDT HISTORY: sob, covid + COMPARISON: No comparisons available. Technique: 2 views obtained. Findings: The lungs are clear, no effusion. No pneumothorax. Heart is normal size. Mediastinal and hilar contours are within normal limits. Bony thorax no acute abnormality. Impression: No acute cardiopulmonary abnormality. Reviewed, dictated and finalized at location A. Impression: No acute cardiopulmonary abnormality.
--- NOTE | ~2025-06-26 | CT_ITS ---
EXAMINATION: CT chest abdomen pelvis wo con, 06/26/2025 18:00 CDT HISTORY: sob, Covid+; myalgias; hematuria; hx stones COMPARISON: No comparisons available. TECHNIQUE: CT scan of the chest, abdomen and pelvis was performed without contrast One or more of the following dose reduction techniques were used: automated exposure control, adjustment of the mA and/or kV according to patient size, use of iterative reconstruction technique. Unless otherwise stated, incidental findings do not require dedicated follow up imaging FINDINGS: CT chest: No significant coronary calcification is present ([id number]) LUNGS: No tracheomalacia. No bronchiectasis. Minimal emphysematous changes. Scattered sub-2 mm micronodules. No significant pulmonary fibrotic changes. HEART AND PERICARDIUM: Within normal limits. AORTA: Normal caliber aorta. MEDIASTINUM: Unremarkable. THYROID: The thyroid is unremarkable. CT abdomen: LIVER: Unremarkable, liver contours intact, no lesions. SPLEEN: Spleen prominent.. KIDNEYS: Right Kidney: Right kidney there are renal calculi the largest in the midpole 1.3 x 1 cm, no hydronephrosis or hydroureter. Left Kidney: Left kidney renal calculi the largest mid pole 3 mm, no hydronephrosis, subcentimeter probable renal cysts. ADRENAL GLANDS: Unremarkable. PANCREAS: Mild pancreatic atrophy. GALLBLADDER/BILIARY: Unremarkable. No biliary dilatation. STOMACH AND ESOPHAGUS: The stomach is decompressed. BOWEL/MESENTERY: Moderate fecal content. No colitis or diverticulitis. Appendix normal. Mesentery normal. No dilated small bowel loops. RETROPERITONEUM: Unremarkable AORTA/VASCULATURE: Normal caliber aorta. FREE FLUID OR FREE AIR: No free fluid.. CT pelvis: SOLID ORGANS/REPRODUCTIVE: Post hysterectomy. No adnexal mass. BLADDER: Within normal limits. LYMPHADENOPATHY: No lymphadenopathy. OSSEOUS STRUCTURES: No acute osseous abnormality.No suspicious lesions. OVERLYING SOFT TISSUES: Small fat-containing umbilical hernia. IMPRESSION: 1. No acute process identified. Incidental findings detailed above. 2. Bilateral renal calculi. No hydronephrosis Reviewed, dictated and finalized at location A.
[2025-06-26 14:43] VITALS: BP 147/72; PULSE 78; RESP 22; TEMP 38.3; O2SAT 95
--- OUTSIDE RECORDS SUMMARY | 2025-06-26 15:28 | XMS_ITS | Encounter Summary ---
Author Organization [facility] Address 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
--- OUTSIDE RECORDS SUMMARY | 2025-06-26 15:28 | XMS_ITS | Clinical Summary ---
Author Organization [facility] Address [facility] [place] [address] Care Team Providers Care Golf Coach Name Role Phone Unavailable Primary Care Provider Unavailabl e Social History Tobacco Use Types Packs/Day Years Used Date Smoking Tobacco: Never Assessed Comments Unknown Sex and Gender Information Value Date Recorded Sex Assigned at Not on file Legal Sex Female 4:39 PM CDT Gender Identity Not on file Sexual Orientation Not on file Plan of Treatment Health Maintenance Due Date Last Done Comments Colorectal Cancer Screening Colonoscopy (10 Years) 1955 Hepatitis C 1973 DTaP, Tdap and Td Vaccines ( 1 - Tdap) 1974 Mammogram Screening 1995 Pneumococcal Vaccine: 50+ Ye ars (1 of 1 - PCV) 2005 Zoster Vaccines (1 of 2) 2005 Dexa Scan (General) 01/15/2020 COVID-19 Vaccine ( - 2023-2 5 season) 2025 RSV Immunization or 60+ Years (1 - 1-dose 75+ series) 2030 Meningococcal B Vaccine Aged Out No l onger eligible based on patient's age to complete this topic Meningococcal Vaccine Aged Out No vasyl rekha eligible based on patient's age to complete this topic RSV Immunizations Under 20 Months Aged Out No longer eligible based on patient's age to complete this topic
--- OUTSIDE RECORDS SUMMARY | 2025-06-26 15:28 | XMS_ITS | Encounter Summary ---
Author Organization [facility] Address 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 Gender Identity Not on file Sexual Orientation Not on file documented as of this encounter Plan of Treatment Not on file documented as of this encounter Procedures Procedure Name Priority Date/Time Associated Diagnosis Comments POC GLUCOSE Routine 07/10/2006 7:36 AM CDT documented in this encounter Results * (ABNORMAL) POC GLUCOSE (07/10/2006 7:36 AM CDT) GLUCOSE POC 141(H) 65 - 109 mg/dL INTERFACE SYSTEM 07/10/2006 7:36 AM CDT us Brad Nolan MD POINT OF CARE TESTING Final Resu lt INTERFACE SYSTEM Refer to clinic/hospital department documented in this encounter Visit Diagnoses Diagnosis Heart disease, unspecified- Primary documented in this encounter
--- OUTSIDE RECORDS SUMMARY | 2025-06-26 15:28 | XMS_ITS | Clinical Summary ---
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
--- OUTSIDE RECORDS SUMMARY | 2025-06-26 15:28 | XMS_ITS | Encounter Summary ---
Author Organization [facility] Address [address] [place] [address] Care Team Providers Care Perinatology Physician Name Role Phone Unavailable Primary Care Provider Unavailabl e Encounter Details Date Type Department Care Team (Late st Contact Info) Description 07/10/2006 Outpatient Historical [facility] [place] 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
--- OUTSIDE RECORDS SUMMARY | 2025-06-26 15:28 | XMS_ITS | Encounter Summary ---
Author Organization [facility] Address 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
--- OUTSIDE RECORDS SUMMARY | 2025-06-26 15:29 | XMS_ITS | Encounter Summary ---
Author Organization [facility] Address 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
--- NOTE | 2025-06-26 15:39 | ED_ITS ---
HPI - SOB/Dyspnea General Chief Complaint: Shortness of Breath/Dyspnea Stated Complaint: +Covid test, weakness, SOB, body aches Time Seen by Provider: 06/26/25 15:19 Source: patient Mode of arrival: EMS Limitations: no limitations History of Present Illness HPI Narrative: Patient presents with report of feeling weak and increasing shortness of breath. She started having myalgias and arthralgias. Symptoms began . They initially seem like they started in the left side of her back and She has a history of bladder and kidney infection and thought this might be the issue however then multiple areas of the body came involved in these became generalized. She has had decreased p.o. intake. She vomited yesterday but not today and no current nausea. Her granddaughter notified her that she test positive for COVID and so she took a home test and also tested positive. No underlying /personal history of respiratory conditions. She states she has been having fevers. When asked if she took any medication for pain or fever, she states she used amonophaline, amonopaline, amphetamine...something like that.When asked if she might mean acetaminophen/Tylenol or amitriptyline, she states no. She states she does not believe it would be on her medication list. Unclear with this medication is. Otherwise she has not taken any medications prior to arrival. No hemoptysis. She reports some swelling in her bilateral feet. She denies any chest pain. Nonsmoker. Patient is retired but stays very active and is in the process of adopting 4 children. Has had COVID before. Related Data Home Medications ?Medication ?Instructions ?Recorded ?Confirmed ?Last Taken ?Type cetirizine 10 mg tablet (Zyrtec) 10 mg PO DAILY PRN al lergy symptoms 08/01/20 11/15/24 Unknown History fluticasone propionate 50 1 spray intranasal BID 03/0511/15/24 Unknown History mcg/actuation nasal spray,suspension Allergies Allergy/AdvReac Type Severity Reaction Status Date / Time latex AdvReac Mild Hives Verified 03/17/24 08:31 Contrast Media Allergy Severe Swelling Uncoded 03/17/24 08:31 of Lip/Tongue/Throat PMFSH Past Medical History Medical History Lower GI bleed Hematochezia Conjunctivitis Acute sinusitis Throat pain Chronic sinusitis BMI 31.0-31.9,adult Iron deficiency anemia, unspecified (~04/06/24) hemoglobin 12.3 on 02/20/2024. Hemoglobin 10.9 with iron 25 with 6% saturation and ferritin 7 on 04/06/2024. Hemoglobin 12.8 with iron 57 with 16% saturation and ferritin 13 on 10/15/2024. At low risk for fall Fatigue TSH normal at 1.68 hemoglobin 13.3 on 09/17/2023. Gross hematuria (~03/2023) Urinalysis with 3+ blood, 2+ protein, 3+ leukocytes, bacteria on 09/17/2023. Urinalysis with trace protein and 2+ blood with 3-10 RBCs on 10/15/2024. COVID-19 (03/12/23) 2nd episode starting 03/12/2023. Benign paroxysmal positional vertigo due to bilateral vestibular disorder (~2021) At moderate risk for fall (~09/12/22) patient fell twice within 1 year after tripping on dog and also stepping in a hole. COVID-19 (05/04/22) tested positive 05/05/2022. BMI 32.0-32.9,adult BMI 33.0-33.9,adult Obesity (BMI 30.0-34.9) Osteoarthritis of right knee Seasonal allergies Arthritis Mild peripheral edema Chronic pain of right knee X-ray on 11/07/2021 reveals moderate tricompartmental osteoarthritis with small effusion. PND (post-nasal drip) Otalgia of both ears Ear itching Allergic rhinitis Rhinorrhea Hypertrophy of both inferior nasal turbinates Nasal septal deviation Nasal obstruction Nasal congestion UTI (urinary tract infection) Overactive bladder Anxiety Low back pain with bilateral sciatica X-ray of the lumbar spine on 04/18/2023 reveals diffuse moderate multilevel degenerative disc disease and severe degenerative disc disease at L2-L3 and L3-L4 with severe facet arthropathy at L4-L5 and L5-S1 with anterior listhesis 8 mm L4 on L5 and retrolisthesis of 5 mm on L2-L3. Moderate scoliosis. (07/14/20) Acute non-recurrent maxillary sinusitis BMI 35.0-35.9,adult Colon cancer screening normal colonoscopy 03/17/2024 with internal hemorrhoids with no active bleeding. Fever blister Grieving Breast cancer screening by mammogram Normal mammogram 04/02/2022. Acute abdominal pain in right flank Acute bilateral low back pain without sciatica UTI (urinary tract infection), uncomplicated Surgical History Surgical History H/O lithotripsy History of hysterectomy Family History Family History Grandparent Asthma, Onset Age: 55 Acute myocardial infarction, Onset Age: 60 Family history of chronic obstructive pulmonary disease, Onset Age: 60 Diabetes mellitus Mother Family history of cardiovascular disease, Onset Age: 71 Family history of chronic obstructive pulmonary disease, Onset Age: 71 Father Asthma Hypertension Heart disease History of myocardial infarction Sibling COPD (chronic obstructive pulmonary disease) Social History Social History Smoking status: Never smoker Alcohol intake: never Substance use: never Substance use type: does not use Lack of Food: Never True Current Housing: I Have Housing Concerned About Future Housing: No Difficulty Paying Gas/Electric Bills: No Difficulty Paying for Meds: No Currently Unemployed: No Education: High School Diploma/GED Difficulty w/ Childcare or Family Care: No Living arrangements: with family Additional living arrangements comments: Adopting 4 children; Daughter and grand-daughter live near as well Occupation/Education: retired Additional occupation/education comments: 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 EYES: Non injected, non icteric ENT: Nares clear, no rhinorrhea or epistaxis. Gross auditory acuity intact. NECK: Supple. No meningismus. CHEST: Speaking in full sentences. No respiratory distress. Lungs clear to auscultation bilaterally without crackles wheezes, or areas of focal consolidation. Nonlabored HEART: Regular rate and rhythm. . ABDOMEN: Soft, nondistended. No rigidity or guarding. Not peritoneal EXTREMITIES: Normal range of motion. No bilateral lower extremity pedal or tibial edema on exam despite patient's reported subjective foot swelling. SKIN: Warm, dry, no rash. NEURO: No focal deficits. Alert and oriented. Answering questions. Following commands. Normal speech without aphasia or dysarthria. PSYCH: Normal mood and affect. Course Vital Signs Vital signs: Vital Signs Temperature 100.9 F H 06/26/25 14:43 Pulse Rate 78 06/26/25 14:43 Respiratory Rate 22 H 06/26/25 14:43 Blood Pressure 147/72 H 06/26/25 14:43 Pulse Oximetry 95 06/26/25 14:43 Oxygen Delivery Room Air 06/26/25 14:43 Temperature 98.3 F 06/26/25 18:23 Pulse Rate 69 06/26/25 18:23 Respiratory Rate 16 06/26/25 18:23 Blood Pressure 127/75 06/26/25 18:23 Pulse Oximetry 94 06/26/25 18:23 Oxygen Delivery Room Air 06/26/25 16:16 MDM - SOB/Dyspnea MDM Narrative Medical decision making narrative: Patient presents with generalized weakness, generalized myalgias, and increasing shortness of breath. Symptoms started on . Patient had a positive home COVID test after being notified by her granddaughter with whom she interacts frequently that they tested positive for COVID. In the emergency department she is febrile and tachypneic with an acceptable blood pressure, only mildly hypertensive. Patient has not taken any medications as an antipyretic. Acetaminophen ordered. D-dimer slighly elevated but YEARS Algorithm : No Clinical signs of DVT: No Hemoptysis: No PE is most likely diagnosis: No D-dimer >1000ng/mL: No Result: PE Excluded Borderline leukopenia (low normal) and very mild thrombocytopenia. Troponin normal. She is on room air. Patient has marked hematuria on urinalysis. Will proceed with CT imaging chest as well as abdomen and pelvis, non contrast given she lists a contrast allergy. Kidney stones are noted to be bilateral but within the kidney. She notes that her urologist has since retired and although we discussed this is not acute issue, she would be amenable to receiving a referral to follow up with 1 in the future. In regards to her COVID, we discussed that this is in general expected in terms of her symptoms we discussed the importance of conservative therapy and rest, maintaining hydration, and using NSAIDs and acetaminophen for both pain and fever. Discussed that Paxlovid could be given but through shared decision making patient elects to decline this as she states she used it when she had COVID before once and she was not a fan.I concur with this decision. Patient otherwise stable for discharge. Advised follow-up with PCP and given strict return precautions which she verifies. Differential Diagnosis Differential diagnosis: Likely community acquired pneumonia, pulmonary embolism (considered) and other (acute viral syndrome including covid) Lab Data Attestation: I reviewed the patient's lab results. 06/26/25 15:52 06/26/25 15:52 Labs: Lab Results 06/26/25 06/26/25 Range/Units 15:52 17:13 WBC 3.8 L (4.5-10.0) K/mm3 RBC 4.84 (4.2-5.4) M/mm3 Hgb 13.4 (12.0-15.0) g/dL Hct 42.3 (37.0-47.0) % MCV 87.4 (80-100) fl MCH 27.7 (26-34) pg MCHC 31.7 L (32-36) g/dl RDW 13.8 (11.5-14.5) % Plt Count 143 L (150-375) k/mm3 MPV 9.2 (7.4-10.4) fl Immature Gran % (Auto) Not Reportable Neut % (Auto) Not Reportable Lymph % (Auto) Not Reportable [place] % (Auto) Not Reportable Eos % (Auto) Not Reportable Baso % (Auto) Not Reportable Lymph # (Auto) Not Reportable [place] # (Auto) Not Reportable Eos # (Auto) Not Reportable Baso # (Auto) Not Reportable Abs Immat Gran (auto) Not Reportable Absolute Neuts (auto) Not Reportable Absolute Nucleated RBC Not Reportable Total Counted 100 Neutrophils % (Manual) 62 (46-73) % Band Neutrophils % 2 (0-6) % Lymphocytes % (Manual) 19 (18-44) % Monocytes % (Manual) 17 H (3-9) % Eosinophils % (Manual) 0 (0-4) % Basophils % (Manual) 0 (0-1) % Nucleated RBC % Not Reportable Abs Neuts (Manual) 2.43 (1.3-6.7) K/mm3 Abs Lymphs (Manual) 0.72 L (1.1-4.5) K/mm3 Abs Monocytes (Manual) 0.64 (0.1-0.90) K/mm3 Absolute Eos (Manual) 0.00 L (0.02-0.50) K/mm3 Abs Basophils (Manual) 0.00 (0.0-0.1) K/mm3 Platelet Estimate Slightly decreased (Adequate) Schistocytes None seen D-Dimer 0.79 H (<0.48) ug/mL Sodium 136 L (137-145) mmol/L Potassium 3.4 (3.4-5.0) mmol/L Chloride 103 (98-107) mmol/L Carbon Dioxide 27 (22-30) mmol/L Anion Gap 6 (4-12) mmol/L BUN 18 H (7-17) mg/dL Creatinine 0.88 (0.7-1.0) mg/dL Estim Creat Clear Calc 55 ml/min Estimated GFR > 60 (59 - ) Glucose 101 (65-110) mg/dL Calcium 8.8 (8.4-10.2) mg/dL Total Bilirubin 0.7 (0.2-1.3) mg/dL AST 24 (14-36) U/L ALT 17 (6-35) U/L Alkaline Phosphatase 80 (38-126) U/L Troponin I < 0.012 (0.000-0.034) ng/mL Total Protein 7.1 (6.3-8.2) g/dL Albumin 4.0 (3.5-5.1) g/dL Urine Color Dark yellow (Yellow) Urine Appearance Cloudy H (Clear) Urine pH 5.5 (5.0-9.0) Ur Specific [place] 1.022 (1.001-1.035) Urine Protein 2+ H (Negative) mg/dL Urine Glucose (UA) Negative (Negative) mg/dL Urine Ketones Trace H (Negative) mg/dL Ur Blood (Man) 3+ H (Negative) Urine Nitrate Negative (Negative) Urine Bilirubin Negative (Negative) Urine Urobilinogen 1.0 (<2.0) mg/dL Add Ur Microanalysis Reviewed Leukocyte Esterase Rfl 1+ H (Negative) EWA/UL Urine RBC >100 H (0-2) /hpf Urine WBC 6-10 H (0-3) /hpf Ur Squamous Epith Cells Moderate (Few) /hpf Urine Bacteria None seen /hpf Urine Casts 0-2 Influenza A (RT-PCR) Negative (Negative) Influenza B (RT-PCR) Negative (Negative) RSV (RT-PCR) Negative (Negative) SARS-CoV-2 RNA (RT-PCR) Positive A (Negative) Imaging Data Radiologist's impression: Impressions Chest X-Ray 06/26/25 16:48 Impression: No acute cardiopulmonary abnormality. Chest/Abdomen/Pelvis CT 06/26/25 18:16 IMPRESSION: 1. No acute process identified. Incidental findings detailed above. 2. Bilateral renal calculi. No hydronephrosis ECG Data EKG #1: Attestation: I personally reviewed and interpreted this ECG as follows: ECG completion date: 06/26/25 ECG completion time: 16:04 Prior ECG tracings: not available for review (No prior for comparison) Interpretation: Normal sinus rhythm at a rate of 67 beats per minute. RI interval 204. This is consistent with a first-degree AV block. QRS 91. QT/QTC 345/366. Baseline wander/artifact limits full interpretation particularly in V6. Left axis deviation (QRS is positive with dominant R wave in Lead I; QRS is negative with dominant S wave in leads II, III, and aVF) Discharge Plan Discharge Clinical Impression: SARS-CoV-2 positive, Bilateral renal stones, Dyspnea due to COVID-19, Myalgia Patient Disposition: Home Condition: Stable Instructions: Antibiotic Form, Kidney Stones (ED), Dyspnea (ED), Musculoskeletal Pain (ED), Shortness of Breath (ED), COVID-19 (Coronavirus Disease 2019) (ED), How to Recover from COVID-19 at Home (ED) Additional Instructions: As we discussed, you have stones in both of your kidneys however given this location they are unlikely to be the source of your pain and rather your muscle aches also note myalgias are very common symptom of COVID. However, referral/contact information for urologist listed below. Follow-up with your primary care physician. Rest and maintain your hydration. Acetaminophen/Tylenol (maximum 4000 mg per day) is safe to take with NSAIDs (ibuprofen/Motrin) for pain relief and fevers. Return to the emergency department with any new, worsening, unmanaged symptoms. Patient Language: Occitan Prescriptions: New acetaminophen 500 mg capsule 1,000 mg PO Q6H PRN (Reason: pain) Qty: 30 0RF ibuprofen 600 mg tablet 600 mg PO TID PRN (Reason: pain) Qty: 30 0RF No Action cetirizine [Zyrtec] 10 mg tablet 10 mg PO DAILY PRN (Reason: allergy symptoms) cefdinir 300 mg capsule 300 mg PO Q12H Qty: 20 0RF fluticasone propionate 50 mcg/actuation spray,suspension 1 spray intranasal BID Rx Instructions: administer into each nostril lisinopril 40 mg tablet 40 mg PO . b.i.d. Qty: 180 3RF duloxetine [Cymbalta] 60 mg capsule,delayed release(DR/EC) 60 mg PO DAILY Qty: 90 3RF Rx Instructions: Patient will pay [place], 38 dollars for 90 days supply reported on good Rx metoprolol succinate 100 mg tablet extended release 24 hr 100 mg PO . q.h.s. Qty: 90 3RF meloxicam 15 mg tablet 15 mg PO DAILY PRN (Reason: pain) Qty: 90 3RF atorvastatin 20 mg tablet 20 mg PO QHS Qty: 90 3RF Rx Instructions: switch from simvastatin because of drug interaction with amlodipine ciprofloxacin HCl 500 mg tablet 500 mg PO Q12H Qty: 14 0RF Follow-up/Referrals: Randal Martin MD [Physician, Urology] Erick Nails MD [Primary Care Provider, Family Practice] Time of Disposition: 18:46
--- NOTE | 2025-06-26 15:40 | ECG_ITS ---
Test Date: 2025-06-26 16:04:56 Measurements Intervals [place] Rate: 67 P: 5 [place]: 204 QRS: -43 QRSD: 91 T: -13 QT: 345 QTc: 366 Interpretive Statements SINUS RHYTHM LEFT ANTERIOR FASCICULAR BLOCK PATTERN CONSISTENT WITH PULMONARY DISEASE LEFT VENTRICULAR HYPERTROPHY AND ST-T CHANGE [VOLTAGE CRITERIA PLUS ST/T ABNORMALITY] ARTIFACT LIMITS INTERPRETATION ABNORMAL ECG No previous ECG available for comparison Electronically Signed On 06-27-2025 07:48:10 CDT by Rashad Jenkins M.D.
[2025-06-26 15:57] LABS: Hematocrit 42.3 % (37.0-47.0); Hemoglobin 13.4 g/dL (12.0-15.0); Mean Corpuscular HGB Conc 31.7 g/dl (32-36); Mean Corpuscular Hemoglobin 27.7 pg (26-34); Mean Corpuscular Volume 87.4 fl (80-100); Platelet Count Result 143 k/mm3 (150-375); Red Blood Count 4.84 M/mm3 (4.2-5.4); White Blood Count 3.8 K/mm3 (4.5-10.0)
[2025-06-26 16:12] LABS: Band Neutrophils Percent 2 % (0-6); Basophils Absolute Manual 0.00 K/mm3 (0.0-0.1); Basophils Percent Manual 0 % (0-1); Eosinophils Absolute Manual 0.00 K/mm3 (0.02-0.50); Eosinophils Percent Manual 0 % (0-4); Lymphocytes Absolute Manual 0.72 K/mm3 (1.1-4.5); Lymphocytes Percent Manual 19 % (18-44); Monocytes Absolute Manual 0.64 K/mm3 (0.1-0.90); Monocytes Percent Manual 17 % (3-9); Neutrophils Absolute Manual 2.43 K/mm3 (1.3-6.7); Neutrophils Percent Manual 62 % (46-73); Total Cells Counted 100
[2025-06-26 16:14] LABS: Schistocytes None Seen
[2025-06-26 16:15] LABS: Alanine Aminotransferase 17 U/L (6-35); Albumin Level 4.0 g/dL (3.5-5.1); Alkaline Phosphatase 80 U/L (38-126); Anion Gap 6 mmol/L (4-12); Aspartate Amino Transferase 24 U/L (14-36); Bilirubin,Total 0.7 mg/dL (0.2-1.3); Blood Urea Nitrogen 18 mg/dL (7-17); Calcium 8.8 mg/dL (8.4-10.2); Carbon Dioxide 27 mmol/L (22-30); Chloride 103 mmol/L (98-107); Estimated CRCL calculation 55 ml/min; Estimated Glomerular Filt Rate > 60; Glucose 101 mg/dL (65-110); Potassium 3.4 mmol/L (3.4-5.0); Sodium 136 mmol/L (137-145); Total Protein 7.1 g/dL (6.3-8.2)
[2025-06-26 16:17] VITALS: BP 154/71; PULSE 71; RESP 20; TEMP 37.4; O2SAT 96
[2025-06-26 16:22] LABS: Troponin I < 0.012 ng/mL (0.000-0.034)
[2025-06-26] MEDS: MORPHINE SULFATE (*CRX) 2 MG/ML INJ IV PUSH (16:31)
[2025-06-26] MEDS: ACETAMINOPHEN 500 MG TABLET 1000 MG PO (16:31)
[2025-06-26 16:34] LABS: Influenza A QL RT-PCR Negative (Negative); Influenza B QL RT-PCR Negative (Negative); RSV RNA, RT-PCR Negative (Negative); SARS-CoV-2 RNA PCR Positive (Negative)
[2025-06-26] MEDS: KETOROLAC 15 MG/ML VIAL (*BKC) IV PUSH (17:04)
[2025-06-26 17:38] LABS: Add Urine Microscopic? YES; Appearance Urine Cloudy (Clear); Glucose Urine UA Negative (Negative); Leukocyte Esterase Ur 1+ LEU/UL (Negative); Need Manual Microscopic Reviewed; Nitrate Urine Negative (Negative); Non Pathogenic Casts 0-2; Specific Grav Ur 1.022 (1.001-1.035)
[2025-06-26 18:23] VITALS: BP 127/75; PULSE 69; RESP 16; TEMP 36.8; O2SAT 94
== END 2025-06-26 19:11 | disposition home or self-care (01) ==
PROVIDERS: Emergency Provider Student in an Organized Health Care Education/Training Program; PCP Family Medicine
DX: U07.1 COVID-19 (principal); N20.0 Calculus of kidney; M79.10 Myalgia, unspecified site; R94.31 Abnormal electrocardiogram [ECG] [EKG]; D64.9 Anemia, unspecified; Z87.440 Personal history of urinary (tract) infections
CPT/HCPCS: 36415; 71046; 71250; 74176; 80053; 81001; 84484; 85025; 85380; 87637; 93005; 96374; 96375; 99284; A9270; J1885; J2270

== ENCOUNTER 2025-07-02 07:28 | Inpatient (IN) | payer MEDICARE, SELFPAY ==
[2025-07-02] VITALS (36 sets, daily range): BP systolic 101–177; BP diastolic 56–86; PULSE 59–108; RESP 12–20; TEMP 36.4–36.6; O2SAT 90–100; BMI 31.4
--- NOTE | ~2025-07-02 | CT_ITS ---
EXAMINATION: CTA chest PE protocol DATE: 07/03/2025 22:28 INDICATION: Chest pain. TECHNIQUE: Computed tomography angiography (CTA) of the chest was performed with 100 mL Omnipaque-350 intravenous contrast timed to evaluate the pulmonary arteries. Coronal maximum intensity projection 3D-reconstructions were created by the technologist. Automated exposure control and iterative reconstruction technique were employed. The dose-length product was 352.90 mGy-cm. COMPARISON: Chest CT 06/26/2025 FINDINGS: The lungs demonstrate mild atelectasis. No pleural effusion. Cardiomegaly is noted. There are coronary artery calcifications. No pericardial effusion. There is no pulmonary embolus. There is mild thoracic spondylosis. IMPRESSION: 1. No pulmonary embolus. Reviewed, dictated and finalized at location E. IMPRESSION: 1. No pulmonary embolus.
--- NOTE | ~2025-07-02 | XR_ITS ---
Examination: XR chest 1V portable Clinical History: cp Comparison: 06/26/2025 Technique: Portable AP Findings: Heart size normal. Lungs clear. No acute bony abnormality. IMPRESSION: 1. No acute cardiopulmonary findings given portable technique. Reviewed, dictated and finalized at location R.
--- NOTE | ~2025-07-02 | US_ITS ---
EXAMINATION: US renal BI, 07/03/2025 14:12 CDT HISTORY: Flank pain Comparison: None Technique: Gonzalez-scale and color Doppler images were obtained. Findings: KIDNEYS: The renal cortices are intact with no solid masses or cysts. Right Kidney: Right kidney 13.3 x 5.3 x 5.4 cm, multiple subcentimeter renal calculi, no hydronephrosis. Left Kidney: Left kidney 11.1 x 5.8 x 6.5 cm, multiple subcentimeter renal calculi, no hydronephrosis. Bladder: The bladder is unremarkable. . Impression: Bilateral renal calculi, no hydronephrosis identified Reviewed, dictated and finalized at location A. Impression: Bilateral renal calculi, no hydronephrosis identified
--- NOTE | ~2025-07-02 | NM_ITS ---
EXAMINATION: NM pulmonary perfusion DATE: 07/02/2025 14:28 INDICATION: Elevated d-dimer. TECHNIQUE: 5.3 mCi Tc-99m MAA was administered intravenously for perfusion images. Scintigraphic images of the chest were obtained. COMPARISON: Chest single view 07/02/25, chest CT 06/26/2025 FINDINGS: There are small defects in the lower lobes and left upper lobe. IMPRESSION: 1. Low probability for pulmonary embolism. Reviewed, dictated and finalized at location E.
--- NOTE | ~2025-07-02 | CT_ITS ---
EXAMINATION: CT abdomen pelvis wo con, 07/02/2025 14:10 CDT HISTORY: Urinary tract infection, history of stones COMPARISON: No comparisons available. TECHNIQUE: CT scan of the abdomen and pelvis was performed without IV contrast. One or more of the following dose reduction techniques were used: automated exposure control, adjustment of the mA and/or kV according to patient size, use of iterative reconstruction technique. Unless otherwise stated, incidental findings do not require dedicated follow up imaging FINDINGS: CT abdomen: LUNG BASES: The lung bases demonstrate chronic changes. LIVER: Unremarkable, liver contours intact, no lesions. SPLEEN: Unremarkable, no splenomegaly. KIDNEYS: Right Kidney: Right kidney there are multiple renal calculi noted the largest in the midpole 1.2 x 1.1 cm with mild right hydronephrosis due to a calculus at the junction of the renal pelvis and proximal ureter measuring 3 x 3 x 4 mm. Left Kidney: Left kidney renal calculi noted the largest mid pole 3 mm. Left kidney midpole there is a complex partially calcified lesion 2 x 2 cm incompletely evaluated, ultrasound is recommended to further assess as an outpatient. ADRENAL GLANDS: Unremarkable. PANCREAS: Mild pancreatic atrophy. GALLBLADDER/BILIARY: Unremarkable. No biliary dilatation. STOMACH AND ESOPHAGUS: Visualized stomach and esophagus within normal limits. BOWEL/MESENTERY: Moderate fecal content, no colitis or diverticulitis. Appendix normal. Mesentery normal. Small bowel normal. ADENOPATHY/RETROPERITONEUM: No lymphadenopathy. AORTA/VASCULATURE: Normal caliber aorta. FREE FLUID OR FREE AIR: No free fluid.. CT pelvis: SOLID ORGANS/REPRODUCTIVE: Post hysterectomy. No adnexal mass. BLADDER: Within normal limits. OSSEOUS STRUCTURES: No acute osseous abnormality.No suspicious lesions. OVERLYING SOFT TISSUES: Unremarkable. IMPRESSION: Right-sided obstructive uropathy. Incidental findings detailed above Reviewed, dictated and finalized at location A.
--- OUTSIDE RECORDS SUMMARY | 2025-07-02 07:30 | XMS_ITS | Clinical Summary ---
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
--- OUTSIDE RECORDS SUMMARY | 2025-07-02 07:30 | XMS_ITS | Encounter Summary ---
Author Organization [facility] Address 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
--- OUTSIDE RECORDS SUMMARY | 2025-07-02 07:30 | XMS_ITS | Encounter Summary ---
Author Organization [facility] Address [address] [place] [address] Care Team Providers Care Heavy Coil Winder Name Role Phone Unavailable Primary Care Provider Unavailabl e Encounter Details Date Type Department Care Team (Late st Contact Info) Description 07/10/2006 Outpatient Historical [facility] [place] 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
--- OUTSIDE RECORDS SUMMARY | 2025-07-02 07:31 | XMS_ITS | Encounter Summary ---
Author Organization [facility] Address 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
--- OUTSIDE RECORDS SUMMARY | 2025-07-02 07:31 | XMS_ITS | Encounter Summary ---
Author Organization [facility] Address [address] [place] [address] Care Team Providers Care Manager Biologics Name Role Phone Unavailable Primary Care Provider [...] on file Legal Sex Female 4:37 AM ECONOMIC ADVISER Gender Identity Not on file Sexual Orientation Not on file documented as of this encounter Plan of Treatment Not on file documented as of this encounter Visit Diagnoses Not on filedocumented in this encounter
--- OUTSIDE RECORDS SUMMARY | 2025-07-02 07:31 | XMS_ITS | Encounter Summary ---
Author Organization [facility] Address 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
--- OUTSIDE RECORDS SUMMARY | 2025-07-02 07:31 | XMS_ITS | Clinical Summary ---
Author Organization [facility] Address [address] [place] [address] Care Team Providers Care Radiologic Electronic Specialist Name Role Phone Unavailable Primary Care [...]
--- NOTE | 2025-07-02 07:33 | ECG_ITS ---
Test Date: 2025-07-02 11:22:14 Measurements Intervals [place] Rate: 57 P: 4 NM: 191 QRS: -39 QRSD: 96 T: 29 QT: 386 QTc: 379 Interpretive Statements SINUS BRADYCARDIA WITH SINUS ARRHYTHMIA LEFT ANTERIOR SUPERIOR HEMIBLOCK VOLTAGE CRITERIA FOR LVH ABNORMAL ECG Compared to ECG 07/02/2025 07:38:35 NO DIFFERENCE Electronically Signed On 07-03-2025 08:09:12 CDT by Paul Oviedo M.D.
--- NOTE | 2025-07-02 07:33 | ECG_ITS ---
Test Date: 2025-07-02 07:38:35 Measurements Intervals [place] Rate: 59 P: 14 GA: 199 QRS: -40 QRSD: 109 T: 5 QT: 408 QTc: 405 Interpretive Statements SINUS BRADYCARDIA LEFT ANTERIOR SUPERIOR HEMIBLOCK LEFT VENTRICULAR HYPERTROPHY ABNORMAL ECG Compared to ECG 06/26/2025 16:04:56 NO SIGNIFICANT CHANGE Electronically Signed On 07-02-2025 08:52:03 CDT by Paul Oviedo M.D.
--- OUTSIDE RECORDS SUMMARY | 2025-07-02 07:36 | XMS_ITS | Encounter Summary ---
Author Organization [facility] Address [address] [place] [address] Care Team Providers Care Rocket Scientist Name Role Phone Unavailable Primary Care Provider Unavailabl e Encounter Details Date Type Department Care Team (Late st Contact Info) Description 06/20/2006 Outpatient Historical [facility] [place] 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
--- NOTE | 2025-07-02 07:40 | ED_ITS ---
HPI - General Adult General Chief complaint: Chest Pain Stated complaint: chest tightness Time Seen by Provider: 07/02/25 07:31 History of Present Illness HPI narrative: 70 Old female present to the emergency department for evaluation for a burning sensation in her bilateral shoulders chest and neck. Patient states she did test positive for COVID approximately 6 days ago. Patient still has cough and congestion symptoms. Patient denies any personal prior cardiac history but states she does have a strong family history. Patient reports she does have borderline type 2 diabetes, hypertension and high cholesterol. Patient denies any prior history of [place]. Patient did have a nuclear stress test approximately 15 years ago. Patient reports he does have a prior history of ureteral calculi. Patient denies any urinary symptoms and denies any flank pain. Related Data Home Medications ?Medication ?Instructions ?Recorded ?Confirmed ?Last Taken ?Type cetirizine 10 mg tablet (Zyrtec) 10 mg PO DAILY PRN al lergy symptoms 08/01/20 11/15/24 Unknown History fluticasone propionate 50 1 spray intranasal BID 03/0511/15/24 Unknown History mcg/actuation nasal spray,suspension Allergies Allergy/AdvReac Type Severity Reaction Status Date / Time Iodinated Contrast Media Allergy Swelling Verified 07/02/25 07:46 of Lip/Tongue/Throat latex AdvReac Mild Hives Verified 07/02/25 07:46 Review of Systems 2 Review of Systems: All systems reviewed & are unremarkable except as noted in HPI and below PMFSH Past Medical History Medical History Lower GI bleed Hematochezia Conjunctivitis Acute sinusitis Throat pain Chronic sinusitis BMI 31.0-31.9,adult Iron deficiency anemia, unspecified (~04/06/24) hemoglobin 12.3 on 02/20/2024. Hemoglobin 10.9 with iron 25 with 6% saturation and ferritin 7 on 04/06/2024. Hemoglobin 12.8 with iron 57 with 16% saturation and ferritin 13 on 10/15/2024. At low risk for fall Fatigue TSH normal at 1.68 hemoglobin 13.3 on 09/17/2023. Gross hematuria (~03/2023) Urinalysis with 3+ blood, 2+ protein, 3+ leukocytes, bacteria on 09/17/2023. Urinalysis with trace protein and 2+ blood with 3-10 RBCs on 10/15/2024. COVID-19 (03/12/23) 2nd episode starting 03/12/2023. Benign paroxysmal positional vertigo due to bilateral vestibular disorder (~2021) At moderate risk for fall (~09/12/22) patient fell twice within 1 year after tripping on dog and also stepping in a hole. COVID-19 (05/04/22) tested positive 05/05/2022. BMI 32.0-32.9,adult BMI 33.0-33.9,adult Obesity (BMI 30.0-34.9) Osteoarthritis of right knee Seasonal allergies Arthritis Mild peripheral edema Chronic pain of right knee X-ray on 11/07/2021 reveals moderate tricompartmental osteoarthritis with small effusion. PND (post-nasal drip) Otalgia of both ears Ear itching Allergic rhinitis Rhinorrhea Hypertrophy of both inferior nasal turbinates Nasal septal deviation Nasal obstruction Nasal congestion UTI (urinary tract infection) Overactive bladder Anxiety Low back pain with bilateral sciatica X-ray of the lumbar spine on 04/18/2023 reveals diffuse moderate multilevel degenerative disc disease and severe degenerative disc disease at L2-L3 and L3-L4 with severe facet arthropathy at L4-L5 and L5-S1 with anterior listhesis 8 mm L4 on L5 and retrolisthesis of 5 mm on L2-L3. Moderate scoliosis. (07/14/20) Acute non-recurrent maxillary sinusitis BMI 35.0-35.9,adult Colon cancer screening normal colonoscopy 03/17/2024 with internal hemorrhoids with no active bleeding. Fever blister Grieving Breast cancer screening by mammogram Normal mammogram 04/02/2022. Acute abdominal pain in right flank Acute bilateral low back pain without sciatica UTI (urinary tract infection), uncomplicated Surgical History Surgical History H/O lithotripsy History of hysterectomy Family History Family History Grandparent Asthma, Onset Age: 55 Acute myocardial infarction, Onset Age: 60 Family history of chronic obstructive pulmonary disease, Onset Age: 60 Diabetes mellitus Mother Family history of cardiovascular disease, Onset Age: 71 Family history of chronic obstructive pulmonary disease, Onset Age: 71 Father Asthma Hypertension Heart disease History of myocardial infarction Sibling COPD (chronic obstructive pulmonary disease) Social History Social History Smoking status: Never smoker Alcohol intake: never Substance use: never Substance use type: does not use Lack of Food: Never True Current Housing: I Have Housing Concerned About Future Housing: No Difficulty Paying Gas/Electric Bills: No Difficulty Paying for Meds: No Currently Unemployed: No Education: High School Diploma/GED Difficulty w/ Childcare or Family Care: No Living arrangements: with family Additional living arrangements comments: Adopting 4 children; Daughter and grand-daughter live near as well Occupation/Education: retired Additional occupation/education comments: 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 EYES: PERRLA/EOMI, conjunctivae clear. NOSE: Normal no drainage EARS:TMS clear with good light reflex. THROAT: Pharynx clear, no exudate. NECK: Supple. No adenopathy, no masses. RESPIRATORY: Airway patent, respirations nonlabored. Clear to auscultation bilaterally, no rales, rhonchi, wheezing. CARDIOVASCULAR: Regular rate and rhythm without murmurs rubs or gallops. ABDOMINAL: Soft, nontender, nondistended, normal bowel sounds MUSCULOSKELETAL: Moves all extremities. Strength/ROM intact, No edema, No calf tenderness. NEURO: Alert. Cranial nerves II through XII intact. Good gait. Good coordination SKIN: Warm, dry. Normal Color Course Vital Signs Vital signs: Vital Signs Pulse Rate 63 07/02/25 07:30 Respiratory Rate 18 07/02/25 07:30 Blood Pressure 177/84 H 07/02/25 07:30 Pulse Oximetry 99 07/02/25 07:30 Temperature 97.7 F 07/02/25 07:33 Pulse Rate 64 07/02/25 14:35 Respiratory Rate 16 07/02/25 14:35 Blood Pressure 142/72 H 07/02/25 14:35 Pulse Oximetry 97 07/02/25 14:35 Oxygen Delivery Room Air 07/02/25 13:39 Medical Decision Making MDM Narrative Medical decision making narrative: 70-year-old female presents emergency department for evaluation for upper chest burning. Patient's D-dimer was positive but patient has an underlying IV contrast allergy so she cannot get the CT PE study. V/Q perfusion study was ordered. Patient did have an elevated troponin with no changes on her EKG to suggest acute STEMI. It was started on heparin bolus and infusion due to concern for pulmonary embolism and possible NSTEMI. Non interventional Cardiology was consulted. Patient's 3 hour troponin did increase to 4.260. Patient is still having upper chest pain. Case was discussed with interventional cardiology and they had no further recommendations. Patient's UA was concerning for urinary tract infection patient was started on IV Rocephin. Patient does have history of ureteral calculi so CT abdomen pelvis without contrast was ordered to evaluate for septic stone. Case was discussed with hospitalist patient was accepted for admission. Patient was well appearing at time of admission to the IMU. Patient was also updated the results of her workup plan for admission. All questions concerns were addressed. Critical Care Procedure Note Authorized and Performed by: Alexis Way Total critical care time: Approximately 36 minutes Due to a high probability of clinically significant, life threatening deterioration, the patient required my highest level of preparedness to intervene emergently and I personally spent this critical care time directly and personally managing the patient. This critical care time included obtaining a history; examining the patient; pulse oximetry; ordering and review of studies; arranging urgent treatment with development of a management plan; evaluation of patient's response to treatment; frequent reassessment; and, discussions with other providers. This critical care time was performed to assess and manage the high probability of imminent, life-threatening deterioration that could result in multi-organ failure. It was exclusive of separately billable procedures and treating other patients and teaching time. Please see MDM section and the rest of the note for further information on patient assessment and treatment. Differential Diagnosis Differential Diagnosis: Pulmonary embolism, pneumonia, COVID, RSV, influenza, UTI, septic stone, ACS Vital Signs Vital Signs: Vital Signs Pulse Rate 63 07/02/25 07:30 Respiratory Rate 18 07/02/25 07:30 Blood Pressure 177/84 H 07/02/25 07:30 Pulse Oximetry 99 07/02/25 07:30 Temperature 97.7 F 07/02/25 07:33 Pulse Rate 64 07/02/25 14:35 Respiratory Rate 16 07/02/25 14:35 Blood Pressure 142/72 H 07/02/25 14:35 Pulse Oximetry 97 07/02/25 14:35 Oxygen Delivery Room Air 07/02/25 13:39 Lab Data Lab results reviewed: Yes I reviewed the patient's lab results. 07/02/25 07:54 07/02/25 07:54 Labs: Lab Results 07/02/25 07/02/25 07/02/25 Range/Units 07:54 07:54 09:04 WBC 5.6 (4.5-10.0) K/mm3 RBC 5.09 (4.2-5.4) M/mm3 Hgb 14.2 (12.0-15.0) g/dL Hct 43.9 (37.0-47.0) % MCV 86.2 (80-100) fl MCH 27.9 (26-34) pg MCHC 32.3 (32-36) g/dl RDW 13.4 (11.5-14.5) % Plt Count 167 (150-375) k/mm3 MPV 9.2 (7.4-10.4) fl Immature Gran % (Auto) 0.4 (0-0.5) % Neut % (Auto) 63.9 (45.5-73.1) % Lymph % (Auto) 28.1 (18.3-44.2) % [place] % (Auto) 5.9 (2.6-8.5) % Eos % (Auto) 1.3 (0-4.4) % Baso % (Auto) 0.4 (0.2-1.2) % Lymph # (Auto) 1.56 (0.9-3.2) K/mm3 [place] # (Auto) 0.3 (0.1-0.6) K/mm3 Eos # (Auto) 0.1 (0-0.3) K/mm3 Baso # (Auto) 0.0 (0.0-0.1) K/mm3 Abs Immat Gran (auto) 0.02 (0.00-0.031) K/mm3 Absolute Neuts (auto) 3.6 (1.3-6.7) K/mm3 Absolute Nucleated RBC 0.000 (0.0-0.012) K/mm3 Nucleated RBC % 0.0 (0.0-0.2) % PT 13.3 (11.1-14.7) Seconds INR 1.0 APTT 26.6 (22.3-36.8) Seconds D-Dimer 0.64 H Cancelled (<0.48) ug/mL Sodium 139 (137-145) mmol/L Potassium 3.4 (3.4-5.0) mmol/L Chloride 104 (98-107) mmol/L Carbon Dioxide 28 (22-30) mmol/L Anion Gap 7 (4-12) mmol/L BUN 19 H (7-17) mg/dL Creatinine 0.77 (0.7-1.0) mg/dL Estim Creat Clear Calc 62 ml/min Estimated GFR > 60 (59 - ) Glucose 119 H (65-110) mg/dL Calcium 9.0 (8.4-10.2) mg/dL Total Bilirubin 1.0 (0.2-1.3) mg/dL AST 20 (14-36) U/L ALT 15 (6-35) U/L Alkaline Phosphatase 79 (38-126) U/L Troponin I 0.077 H* (0.000-0.034) ng/mL NT-Pro-B Natriuret Pep 116 H (19.9-100) pg/mL Total Protein 7.4 (6.3-8.2) g/dL Albumin 4.1 (3.5-5.1) g/dL Urine Color Yellow (Yellow) Urine Appearance Cloudy H (Clear) Urine pH 6.0 (5.0-9.0) Ur Specific [place] 1.019 (1.001-1.035) Urine Protein 1+ H (Negative) mg/dL Urine Glucose (UA) Negative (Negative) mg/dL Urine Ketones Negative (Negative) mg/dL Ur Blood (Man) Trace (Negative) Urine Nitrate Positive H (Negative) Urine Bilirubin Negative (Negative) Urine Urobilinogen 1.0 (<2.0) mg/dL Leukocyte Esterase Rfl 3+ H (Negative) EWA/UL Urine RBC 3-5 H (0-2) /hpf Urine WBC >100 H (0-3) /hpf Ur Squamous Epith Cells Occasional (Few) /hpf Urine Bacteria Rare /hpf Urine Casts 3-5 09/20/25 Range/Units 11:15 WBC (4.5-10.0) K/mm3 RBC (4.2-5.4) M/mm3 Hgb (12.0-15.0) g/dL Hct (37.0-47.0) % MCV (80-100) fl MCH (26-34) pg MCHC (32-36) g/dl RDW (11.5-14.5) % Plt Count (150-375) k/mm3 MPV (7.4-10.4) fl Immature Gran % (Auto) (0-0.5) % Neut % (Auto) (45.5-73.1) % Lymph % (Auto) (18.3-44.2) % [place] % (Auto) (2.6-8.5) % Eos % (Auto) (0-4.4) % Baso % (Auto) (0.2-1.2) % Lymph # (Auto) (0.9-3.2) K/mm3 [place] # (Auto) (0.1-0.6) K/mm3 Eos # (Auto) (0-0.3) K/mm3 Baso # (Auto) (0.0-0.1) K/mm3 Abs Immat Gran (auto) (0.00-0.031) K/mm3 Absolute Neuts (auto) (1.3-6.7) K/mm3 Absolute Nucleated RBC (0.0-0.012) K/mm3 Nucleated RBC % (0.0-0.2) % PT (11.1-14.7) Seconds INR APTT (22.3-36.8) Seconds D-Dimer (<0.48) ug/mL Sodium (137-145) mmol/L Potassium (3.4-5.0) mmol/L Chloride (98-107) mmol/L Carbon Dioxide (22-30) mmol/L Anion Gap (4-12) mmol/L BUN (7-17) mg/dL Creatinine (0.7-1.0) mg/dL Estim Creat Clear Calc ml/min Estimated GFR (59 - ) Glucose (65-110) mg/dL Calcium (8.4-10.2) mg/dL Total Bilirubin (0.2-1.3) mg/dL AST (14-36) U/L ALT (6-35) U/L Alkaline Phosphatase (38-126) U/L Troponin I 4.260 H* D (0.000-0.034) ng/mL NT-Pro-B Natriuret Pep (19.9-100) pg/mL Total Protein (6.3-8.2) g/dL Albumin (3.5-5.1) g/dL Urine Color (Yellow) Urine Appearance (Clear) Urine pH (5.0-9.0) Ur Specific [place] (1.001-1.035) Urine Protein (Negative) mg/dL Urine Glucose (UA) (Negative) mg/dL Urine Ketones (Negative) mg/dL Ur Blood (Man) (Negative) Urine Nitrate (Negative) Urine Bilirubin (Negative) Urine Urobilinogen (<2.0) mg/dL Leukocyte Esterase Rfl (Negative) EWA/UL Urine RBC (0-2) /hpf Urine WBC (0-3) /hpf Ur Squamous Epith Cells (Few) /hpf Urine Bacteria /hpf Urine Casts Critical Care Time Critical Care Time Critical Care Time: Yes Total Critical Care Time: 36 Discharge Plan Discharge Clinical Impression: Non-ST elevation [place] (NSTEMI), Acute UTI, COVID Patient Disposition: Still a Patient Condition: Serious
[2025-07-02] MEDS: ALBUTEROL SULFATE NEB 2.5 MG/3 ML INH 5 MG INHALATION (08:00)
[2025-07-02 08:03] LABS: Hematocrit 43.9 % (37.0-47.0); Hemoglobin 14.2 g/dL (12.0-15.0); Immature Granulocyte Percent A 0.4 % (0-0.5); Lymphocytes Absolute Auto 1.56 K/mm3 (0.9-3.2); Mean Corpuscular HGB Conc 32.3 g/dl (32-36); Mean Corpuscular Hemoglobin 27.9 pg (26-34); Mean Corpuscular Volume 86.2 fl (80-100); Nucleated Red Blood Cells Absolute Auto 0.000 K/mm3 (0.0-0.012); Nucleated Red Blood Cells Perc 0.0 % (0.0-0.2); Platelet Count Result 167 k/mm3 (150-375); Red Blood Count 5.09 M/mm3 (4.2-5.4); White Blood Count 5.6 K/mm3 (4.5-10.0)
[2025-07-02 08:19] LABS: Alanine Aminotransferase 15 U/L (6-35); Albumin Level 4.1 g/dL (3.5-5.1); Alkaline Phosphatase 79 U/L (38-126); Anion Gap 7 mmol/L (4-12); Aspartate Amino Transferase 20 U/L (14-36); Bilirubin,Total 1.0 mg/dL (0.2-1.3); Blood Urea Nitrogen 19 mg/dL (7-17); Calcium 9.0 mg/dL (8.4-10.2); Carbon Dioxide 28 mmol/L (22-30); Chloride 104 mmol/L (98-107); Estimated CRCL calculation 62 ml/min; Estimated Glomerular Filt Rate > 60; Glucose 119 mg/dL (65-110); Potassium 3.4 mmol/L (3.4-5.0); Sodium 139 mmol/L (137-145); Total Protein 7.4 g/dL (6.3-8.2)
[2025-07-02 08:35] LABS: NT Pro B Type Natriuretic Pept 116 pg/mL (19.9-100); Troponin I 0.077 ng/mL (0.000-0.034)
[2025-07-02 08:40] LABS: INR 1.0; Partial Thromboplastin Time 26.6 Seconds (22.3-36.8); Prothrombin Time 13.3 Seconds (11.1-14.7)
[2025-07-02 09:22] LABS: Add Urine Microscopic? YES; Appearance Urine Cloudy (Clear); Glucose Urine UA Negative (Negative); Leukocyte Esterase Ur 3+ LEU/UL (Negative); Nitrate Urine Positive (Negative); Specific Grav Ur 1.019 (1.001-1.035)
[2025-07-02] MEDS: HYDROmorphone HCL INJ (*CRX) 1 MG/ML SYR IV PUSH (09:46)
[2025-07-02] MEDS: cefTRIAXone 1 GM in SODIUM CHLORIDE 0.9% IV 50 ML 100 ML IVPB (10:55)
[2025-07-02] MEDS: HEPARIN SOD/D5W 100 UNITS/ML 25,000 UNITS/250 ML BAG 8 UNITS IV CONT (11:02)
--- NOTE | 2025-07-02 11:18 | ECG_ITS ---
Test Date: 2025-07-02 12:01:09 Measurements Intervals [place] Rate: 61 P: 11 MN: 193 QRS: -43 QRSD: 106 T: 67 QT: 415 QTc: 420 Interpretive Statements SINUS RHYTHM LEFT ANTERIOR SUPERIOR HEMIBLOCK MODERATE VOLTAGE CRITERIA FOR LVH, CONSIDER NORMAL VARIANT [MEETS CRITERIA IN ONE OF: R(aVL), S(V1), R(V5), R(V5/V6)+S(V1)] ABNORMAL ECG Compared to ECG 07/02/2025 11:22:14 NO DIFFERENCE Electronically Signed On 07-03-2025 08:11:10 CDT by Paul Oviedo M.D.
[2025-07-02 11:50] LABS: Troponin I 4.260 ng/mL (0.000-0.034)
[2025-07-02] MEDS: ASPIRIN 81 MG CHEWABLE TABLET 324 MG PO (12:18)
[2025-07-02] MEDS: MORPHINE SULFATE (*CRX) 4 MG/ML INJ 2 MG IV PUSH (12:18)
[2025-07-02] MEDS: predniSONE 40 MG, predniSONE 10 MG 50 MG PO (13:08)
[2025-07-02] MEDS: HYDROmorphone HCL INJ (*CRX) 1 MG/ML SYR 0.5 MG IV PUSH (13:26)
--- NOTE | 2025-07-02 13:32 | P.HP_ITS ---
H&P: HPI History of Present Illness Date/Time: 07/02/25 13:32 Chief Complaint: COVID with chest pain Narrative: 70-year-old female with past medical history of iron-deficiency anemia, anxiety, low back pain, vertigo presents the hospital on day 6 a COVID with chest pain. Patient describes it as chest burning radiates up into the shoulders and neck. She states that this started this morning. She also complains of lower back pain. She denies nausea or vomiting. She also complains of cough and congestion. She states that she does not have any cardiac history. Patient denies calf pain. Patient states that her breathing is improved today compared to where it was 2 days ago. She believes that her COVID is getting better. CBC within normal limits, D-dimer of 0.64, BUN of 19, glucose of 119, troponins of 0.077 followed by 4.260, BNP of 116, UA cloudy with positive nitrates 3+ leukocyte esterase 3-5 rbc's in over 100 wbc's. Patient was started on Rocephin and a heparin drip will be admitted to IMU with cardiology consult. Patient has allergy to contrast dye of anaphylaxis, pretreatment for contrast was started in the emergency room. V/Q scan ordered with read pending. Review of Systems Review of Systems: 12 systems were reviewed and are negativ e except for as per HPI. [facility] Past Medical History Medical History Lower GI bleed Hematochezia Conjunctivitis Acute sinusitis Throat pain Chronic sinusitis BMI 31.0-31.9,adult Iron deficiency anemia, unspecified (~04/06/24) hemoglobin 12.3 on 02/20/2024. Hemoglobin 10.9 with iron 25 with 6% saturation and ferritin 7 on 04/06/2024. Hemoglobin 12.8 with iron 57 with 16% saturation and ferritin 13 on 10/15/2024. At low risk for fall Fatigue TSH normal at 1.68 hemoglobin 13.3 on 09/17/2023. Gross hematuria (~03/2023) Urinalysis with 3+ blood, 2+ protein, 3+ leukocytes, bacteria on 09/17/2023. Urinalysis with trace protein and 2+ blood with 3-10 RBCs on 10/15/2024. COVID-19 (03/12/23) 2nd episode starting 03/12/2023. Benign paroxysmal positional vertigo due to bilateral vestibular disorder (~2021) At moderate risk for fall (~09/12/22) patient fell twice within 1 year after tripping on dog and also stepping in a hole. COVID-19 (05/04/22) tested positive 05/05/2022. BMI 32.0-32.9,adult BMI 33.0-33.9,adult Obesity (BMI 30.0-34.9) Osteoarthritis of right knee Seasonal allergies Arthritis Mild peripheral edema Chronic pain of right knee X-ray on 11/07/2021 reveals moderate tricompartmental osteoarthritis with small effusion. PND (post-nasal drip) Otalgia of both ears Ear itching Allergic rhinitis Rhinorrhea Hypertrophy of both inferior nasal turbinates Nasal septal deviation Nasal obstruction Nasal congestion UTI (urinary tract infection) Overactive bladder Anxiety Low back pain with bilateral sciatica X-ray of the lumbar spine on 04/18/2023 reveals diffuse moderate multilevel degenerative disc disease and severe degenerative disc disease at L2-L3 and L3-L4 with severe facet arthropathy at L4-L5 and L5-S1 with anterior listhesis 8 mm L4 on L5 and retrolisthesis of 5 mm on L2-L3. Moderate scoliosis. (07/14/20) Acute non-recurrent maxillary sinusitis BMI 35.0-35.9,adult Colon cancer screening normal colonoscopy 03/17/2024 with internal hemorrhoids with no active bleeding. Fever blister Grieving Breast cancer screening by mammogram Normal mammogram 04/02/2022. Acute abdominal pain in right flank Acute bilateral low back pain without sciatica UTI (urinary tract infection), uncomplicated Surgical History Surgical History H/O lithotripsy History of hysterectomy Family History Family History Grandparent Asthma, Onset Age: 55 Acute myocardial infarction, Onset Age: 60 Family history of chronic obstructive pulmonary disease, Onset Age: 60 Diabetes mellitus Mother Family history of cardiovascular disease, Onset Age: 71 Family history of chronic obstructive pulmonary disease, Onset Age: 71 Father Asthma Hypertension Heart disease History of myocardial infarction Sibling COPD (chronic obstructive pulmonary disease) Social History Social History Smoking status: Never smoker Alcohol intake: never Substance use: never Substance use type: does not use Lack of Transportation: No Lack of Food: Never True Current Housing: I Have Housing Concerned About Future Housing: No Difficulty Paying Gas/Electric Bills: No Difficulty Paying for Meds: No Currently Unemployed: No Education: High School Diploma/GED Difficulty w/ Childcare or Family Care: No Living arrangements: with family Additional living arrangements comments: Adopting 4 children; Daughter and grand-daughter live near as well Occupation/Education: retired Additional occupation/education comments: 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 b.i.d. #180 tabs 06/10/24 07/02/25 Rx duloxetine 60 mg capsule,delayed 60 mg PO DAILY #90 ca ps 09/20/24 07/02/25 Rx release (Cymbalta) meloxicam 15 mg tablet 15 mg PO DAILY PRN pain #90 tabs 01/14/25 07/02/25 Rx metoprolol succinate 100 mg 100 mg PO . q.h.s. #90 tab s 01/14/25 07/02/25 Rx tablet,extended release 24 hr atorvastatin 20 mg tablet 20 mg PO QHS #90 tabs 07/02/25 Rx acetaminophen 500 mg capsule 1,000 mg (2 x 500 mg) PO Q6H PRN 06/26/25 07/02/25 Rx pain #30 caps ibuprofen 600 mg tablet 600 mg PO TID PRN pain #30 t abs 06/26/25 07/02/25 Rx Allergies Allergy/AdvReac Type Severity Reaction Status Date / Time Iodinated Contrast Media Allergy Swelling Verified 07/02/25 07:46 of Lip/Tongue/Throat latex AdvReac Mild Hives Verified 07/02/25 07:46 Vital Signs Vital Signs - 24 hr 07/02/25 07:30 07/02/25 07:33 07/02/25 07:45 Temperature 97.7 F Pulse Rate 63 60 Respiratory Rate 18 18 Blood Pressure 177/84 H 177/84 H Pulse Oximetry 99 97 97 Oxygen Delivery Room Air Room Air 07/02/25 08:02 07/02/25 08:02 07/02/25 08:13 Temperature Pulse Rate 59 L 62 Respiratory Rate 19 20 Blood Pressure Pulse Oximetry 99 Oxygen Delivery Room Air 07/02/25 08:30 07/02/25 09:50 07/02/25 10:01 Temperature Pulse Rate 63 68 66 Respiratory Rate 20 20 19 Blood Pressure 173/74 H 160/79 H 157/86 H Pulse Oximetry 100 100 92 Oxygen Delivery 07/02/25 10:16 07/02/25 10:31 07/02/25 10:47 Temperature Pulse Rate 64 62 70 Respiratory Rate 15 15 16 Blood Pressure 161/82 H 167/85 H 161/83 H Pulse Oximetry 90 92 98 Oxygen Delivery 07/02/25 11:06 07/02/25 11:17 07/02/25 11:32 Temperature Pulse Rate 62 69 65 Respiratory Rate 18 16 20 Blood Pressure 162/77 H 101/56 L 166/74 H Pulse Oximetry 99 98 96 Oxygen Delivery 07/02/25 11:47 07/02/25 12:01 07/02/25 12:17 Temperature Pulse Rate 66 63 62 Respiratory Rate 20 19 16 Blood Pressure 143/83 H 163/72 H 156/79 H Pulse Oximetry 98 97 98 Oxygen Delivery 07/02/25 12:31 Temperature Pulse Rate 61 Respiratory Rate 12 Blood Pressure 154/74 H Pulse Oximetry 96 Oxygen Delivery Exam Narrative: General: well appearing, appears stated age. No distress HEENT: normocephalic, atraumatic. Mucous membranes moist. EOMI, PERRLA, bilateral sclera anicteric, no conjunctival injection. Neck supple without JVD, lymphadenopathy, or bruit. Respiratory: clear to ascultation bilaterally. No rales/rhonic/wheezes. Cardiovascular: Regular rate and rhythm, normal S1-S2 upon ascultation. No murmurs, rubs, or clicks. PMI is nondisplaced, capillary refill less than 3 second. Abdomen: Soft, round, no pulsatile masses, nondistended and nontender. No rebound, no guarding. Bowel sounds present to all four quadrants. No high pitch or tinkling sounds, resonant to percussion. Extremities: No cyanosis, clubbing, or edema present. Pulses are palpable 2/2. Active ROM to all four extremities. Neuro: Alert and orientated x 4. PERRLA. Cranial nerves 2-12 intact without focal deficit. Skin: Warm, dry, and intact, without rash, erythema, or lesion. Psych: pleasant, cooperative, normal speech, normal affect, no hallucinations, no dysarthia H&P: Results Labs Labs: Short CBC 07/02/25 Range/Units 07:54 WBC 5.6 (4.5-10.0) K/mm3 Hgb 14.2 (12.0-15.0) g/dL Hct 43.9 (37.0-47.0) % Plt Count 167 (150-375) k/mm3 BMP 07/02/25 07:54 Sodium 139 Potassium 3.4 Chloride 104 Carbon Dioxide 28 BUN 19 H Creatinine 0.77 Glucose 119 H Calcium 9.0 Cardiac Enzymes 07/02/25 07/02/25 Range/Units 07:54 11:15 Troponin I 0.077 H* 4.260 H* D (0.000-0.034) ng/mL Liver Function 07/02/25 Range/Units 07:54 Total Bilirubin 1.0 (0.2-1.3) mg/dL AST 20 (14-36) U/L ALT 15 (6-35) U/L Alkaline Phosphatase 79 (38-126) U/L Albumin 4.1 (3.5-5.1) g/dL Urine 07/02/25 Range/Units 09:04 Urine Color Yellow (Yellow) Urine Appearance Cloudy H (Clear) Urine pH 6.0 (5.0-9.0) Ur Specific [place] 1.019 (1.001-1.035) Urine Protein 1+ H (Negative) mg/dL Urine Glucose (UA) Negative (Negative) mg/dL Assessment and Plan Assessment and plan (1) Non-ST elevation SC (NSTEMI): Code(s): I21.4 - Non-ST elevation (NSTEMI) myocardial infarction Status: Acute Assessment and Plan: Cardiology consulted Heparin drip per protocol Aspirin Trend troponins EKGs p.r.n. Nitro paste NPO midnight (2) COVID: Code(s): U07.1 - COVID-19 Status: Acute Assessment and Plan: Tylenol DuoNebs Flexeril (3) Acute UTI: Code(s): N39.0 - Urinary tract infection, site not specified Status: Acute Assessment and Plan: IV Rocephin IVF (4) Shortness of breath: Code(s): R06.02 - Shortness of breath Status: Acute Assessment and Plan: Patient states that her breathing today is better than it was 2 days ago Possible PE versus COVID versus NSTEMI versus other Unable to do PE protocol due to contrast dye of anaphylaxis, will pre treat patient V/Q scan pending DuoNebs Famotidine Prednisone (5) Anxiety: Code(s): F41.9 - Anxiety disorder, unspecified Status: Acute Assessment and Plan: Restart Cymbalta (6) Essential (primary) hypertension: Code(s): I10 - Essential (primary) hypertension Status: Acute Assessment and Plan: Restart lisinopril (7) Mixed hyperlipidemia: Code(s): E78.2 - Mixed hyperlipidemia Status: Acute Assessment and Plan: Restart Lipitor (8) Iron deficiency anemia, unspecified: Onset Date: ~04/06/24 Qualifiers: Iron deficiency anemia type: chronic blood loss Qualified Code(s): D50.0 - Iron deficiency anemia secondary to blood loss (chronic) Code(s): D50.9 - Iron deficiency anemia, unspecified Status: Acute Assessment and Plan: Patient not currently on iron Iron panel pending Quality VTE Prophylaxis VTE prophylaxis: mechanical ordered and pharmacologic ordered Hospitalist MIPS Advance Care Plan I have confirmed that the patient's Advanced Care Plan is present, code status is documented, or surrogate decision maker is listed in patient medical record.: Yes Medication Reconciliation I have utilized all available resources to obtain, update and review the patients current medications (includes all prescriptions, OTC, herbals, cannabis, and nutritional supplements).: Yes
[2025-07-02] MEDS: ALBUTEROL SULFATE NEB 2.5 MG/3 ML INH INHALATION ×2 (13:36→21:06)
[2025-07-02] MEDS: FAMOTIDINE 20 MG/2 ML VIAL IV PUSH (14:42)
--- NOTE | 2025-07-02 14:53 | ADMGEN ---
This patient, Pallavi Kenney, was admitted to IMU Room 213-01 @ [id number]. Patient/family oriented to hospital policies and general routines including ID bracelet, bed and alarms, visiting hours, pain management, procedures, bathroom and other care routines, personal items, smoking policy, room service/diet, and visiting hours. Information on how to activate the Rapid Response Team has been discussed. Patient/Family are encouraged to report perceived risks to care and to ask questions if they do not understand what they are told or what they should do.
[2025-07-02 16:23] LABS: Hematocrit 42.7 % (37.0-47.0); Hemoglobin 13.6 g/dL (12.0-15.0); Immature Granulocyte Percent A 0.5 % (0-0.5); Lymphocytes Absolute Auto 0.82 K/mm3 (0.9-3.2); Mean Corpuscular HGB Conc 31.9 g/dl (32-36); Mean Corpuscular Hemoglobin 27.5 pg (26-34); Mean Corpuscular Volume 86.3 fl (80-100); Nucleated Red Blood Cells Absolute Auto 0.000 K/mm3 (0.0-0.012); Nucleated Red Blood Cells Perc 0.0 % (0.0-0.2); Platelet Count Result 163 k/mm3 (150-375); Red Blood Count 4.95 M/mm3 (4.2-5.4); White Blood Count 6.6 K/mm3 (4.5-10.0)
[2025-07-02] MEDS: ACETAMINOPHEN 325 MG TABLET 650 MG PO ×2 (16:39→20:57)
[2025-07-02 16:42] LABS: INR 1.1; Prothrombin Time 14.4 Seconds (11.1-14.7)
[2025-07-02 16:43] LABS: Partial Thromboplastin Time 47.4 Seconds (22.3-36.8)
[2025-07-02] MEDS: NITROGLYCERIN SL 0.4 MG TABLET SUBLINGUAL (17:53)
[2025-07-02] MEDS: CYCLOBENZAPRINE HCL 5 MG TABLET PO (18:46)
[2025-07-02] MEDS: NITROGLYCERIN OINTMENT 1 INCH DOSE 0.5 INCH TRANSDERM ×2 (18:46→23:25)
[2025-07-02] MEDS: ATORVASTATIN 20 MG TABLET PO (20:06)
[2025-07-02] MEDS: METOPROLOL SUCCINATE EXT REL 100 MG TABCR PO (20:06)
[2025-07-02] MEDS: SODIUM CHLORIDE 0.9% IV 1,000 ML 75 ML IV CONT (20:58)
[2025-07-02 23:17] LABS: Partial Thromboplastin Time 110.4 Seconds (22.3-36.8)
[2025-07-03] VITALS (16 sets, daily range): BP systolic 124–138; BP diastolic 66–72; PULSE 55–77; RESP 14–20; TEMP 36.5–37.1; O2SAT 92–95
[2025-07-03] MEDS: ALBUTEROL SULFATE NEB 2.5 MG/3 ML INH INHALATION (02:35)
[2025-07-03] MEDS: NITROGLYCERIN OINTMENT 1 INCH DOSE 0.5 INCH TRANSDERM ×3 (06:29→16:46)
[2025-07-03 06:47] LABS: Hematocrit 40.5 % (37.0-47.0); Hemoglobin 13.1 g/dL (12.0-15.0); Immature Granulocyte Percent A 0.4 % (0-0.5); Lymphocytes Absolute Auto 0.79 K/mm3 (0.9-3.2); Mean Corpuscular HGB Conc 32.3 g/dl (32-36); Mean Corpuscular Hemoglobin 27.8 pg (26-34); Mean Corpuscular Volume 85.8 fl (80-100); Nucleated Red Blood Cells Absolute Auto 0.000 K/mm3 (0.0-0.012); Nucleated Red Blood Cells Perc 0.0 % (0.0-0.2); Platelet Count Result 183 k/mm3 (150-375); Red Blood Count 4.72 M/mm3 (4.2-5.4); White Blood Count 6.8 K/mm3 (4.5-10.0)
[2025-07-03 07:00] LABS: Partial Thromboplastin Time 96.5 Seconds (22.3-36.8)
[2025-07-03 07:07] LABS: Anion Gap 5 mmol/L (4-12); Blood Urea Nitrogen 18 mg/dL (7-17); Calcium 8.8 mg/dL (8.4-10.2); Carbon Dioxide 26 mmol/L (22-30); Chloride 105 mmol/L (98-107); Cholesterol 178 mg/dL (0-200); Estimated CRCL calculation 81 ml/min; Estimated Glomerular Filt Rate > 60; Glucose 178 mg/dL (65-110); HDL Direct 47 mg/dL; Potassium 3.7 mmol/L (3.4-5.0); Sodium 136 mmol/L (137-145); Triglycerides 62 mg/dL (<150)
[2025-07-03 07:53] LABS: Ferritin 32.60 ng/mL (11.1-264)
[2025-07-03 08:18] LABS: Vitamin B12 914.0 pg/mL (239-931)
[2025-07-03] MEDS: DOCUSATE SODIUM 100 MG CAPSULE PO (09:11)
[2025-07-03] MEDS: DULoxetine HCL 60 MG CAPSULE.DR PO (09:11)
[2025-07-03] MEDS: LORATADINE 10 MG TABLET PO (09:11)
[2025-07-03] MEDS: predniSONE 40 MG, predniSONE 10 MG 50 MG PO ×3 (09:12→21:05)
[2025-07-03] MEDS: ASPIRIN 81 MG CHEWABLE TABLET PO (09:12)
[2025-07-03] MEDS: HYDROmorphone HCL INJ (*CRX) 1 MG/ML SYR 0.5 MG IV PUSH (09:12)
[2025-07-03 10:09] LABS: Iron 41 ug/dL (37-170); Percent Iron Saturation 13 % (20-50)
[2025-07-03] MEDS: FLUTICASONE PROPIONATE 0.05% NA SPR 16 GM BTL (*BKC) 2 SPRAY NASAL (10:10)
[2025-07-03] MEDS: cefTRIAXone 1 GM in SODIUM CHLORIDE 0.9% IV 50 ML 100 ML IVPB (11:32)
--- NOTE | 2025-07-03 11:37 | P.PNIM_ITS ---
Progress Note: A&P Assessment and Plan (1) Non-ST elevation ID (NSTEMI): Code(s): I21.4 - Non-ST elevation (NSTEMI) myocardial infarction Status: Acute (2) COVID: Code(s): U07.1 - COVID-19 Status: Acute (3) Acute UTI: Code(s): N39.0 - Urinary tract infection, site not specified Status: Acute (4) Shortness of breath: Code(s): R06.02 - Shortness of breath Status: Acute (5) Anxiety: Code(s): F41.9 - Anxiety disorder, unspecified Status: Acute (6) Essential (primary) hypertension: Code(s): I10 - Essential (primary) hypertension Status: Acute (7) Mixed hyperlipidemia: Code(s): E78.2 - Mixed hyperlipidemia Status: Acute (8) Iron deficiency anemia, unspecified: Onset Date: ~04/06/24 Qualifiers: Iron deficiency anemia type: chronic blood loss Qualified Code(s): D50.0 - Iron deficiency anemia secondary to blood loss (chronic) Code(s): D50.9 - Iron deficiency anemia, unspecified Status: Acute Plan 70-year-old female with past medical history of iron-deficiency anemia, anxiety, low back pain, vertigo presents the hospital on day 6 of COVID with chest pain. Patient describes it as chest burning radiates up into the shoulders and neck. She states that this started in the morning. She also complains of lower back pain. She denies nausea or vomiting. She also complains of cough and congestion. She states that she does not have any cardiac history. Patient denies calf pain. Patient states that her breathing is improved today compared to where it was 2 days ago. She believes that her COVID is getting better. CBC within normal limits, D-dimer of 0.64, BUN of 19, glucose of 119, troponins of 0.077 followed by 4.260, BNP of 116, UA cloudy with positive nitrates 3+ leukocyte esterase 3-5 rbc's in over 100 wbc's. Patient was started on Rocephin and a heparin drip will be admitted to IMU with cardiology consult. Patient has allergy to contrast dye of anaphylaxis, pretreatment for contrast was started in the emergency room. V/Q scan came back with low probability for PE. Plan for CTA after pretreatment. Non ST elevation ID does have family history of premature coronary artery disease. No smoking. EKG with no significant change. COVID infection stable UTI on Rocephin. Urinalysis with more than [address] abdomen pelvis with right-sided obstructive uropathy. With mild right hydronephrosis due to calculus at the junction of renal pelvis and proximal ureter will consult urology Left kidney mid pole partially calcified lesion ultrasound recommended. milka order that. Anxiety disorder Hypertension Hyperlipidemia Iron deficiency anemia DVT prophylaxis on heparin drip Code status DNR Subjective Date/time seen: 07/03/25 11:37 Interval history: Overnight events. Patient reports intermittent chest pain that has been ongoing symptoms since past month. Still has cough and congestion. Review of Systems Review of Systems: 12 systems were reviewed and are negativ e except for as per HPI. All systems reviewed & are unremarkable except as noted in HPI and below Exam Narrative: General: well appearing, appears stated age. No distress HEENT: normocephalic, atraumatic. Mucous membranes moist. EOMI, PERRLA Respiratory: clear to auscultation bilaterally. No rales/rhonic/wheezes. Cardiovascular: Regular rate and rhythm, normal S1-S2 upon ascultation. Abdomen: Soft, round, no pulsatile masses, nondistended and nontender. Extremities: No cyanosis, clubbing, or edema present. Pulses are palpable 2/2. Active ROM to all four extremities. Neuro: Alert and oriented x 4. PERRLA. Cranial nerves 2-12 intact without focal deficit. Skin: Warm, dry, and intact, without rash, erythema, or lesion. Psych: pleasant, cooperative, normal speech, normal affect, no hallucinations, no dysarthia Objective Data Vital Signs Vital Signs: Vital Signs - 24 hr 07/02/25 11:47 07/02/25 12:01 07/02/25 12:17 Temperature Pulse Rate 66 63 62 Respiratory Rate 20 19 16 Blood Pressure 143/83 H 163/72 H 156/79 H Pulse Oximetry 98 97 98 Oxygen Delivery 07/02/25 12:31 07/02/25 12:46 07/02/25 13:01 Temperature Pulse Rate 61 59 L 59 L Respiratory Rate 12 15 14 Blood Pressure 154/74 H 161/79 H 170/78 H Pulse Oximetry 96 97 99 Oxygen Delivery 07/02/25 13:32 07/02/25 13:36 07/02/25 13:39 Temperature Pulse Rate 61 61 Respiratory Rate 16 20 Blood Pressure 148/75 H Pulse Oximetry 95 96 Oxygen Delivery Room Air 07/02/25 13:54 07/02/25 14:35 07/02/25 15:55 Temperature 97.8 F Pulse Rate 65 64 96 Respiratory Rate 20 16 18 Blood Pressure 142/72 H 165/72 H Pulse Oximetry 97 96 Oxygen Delivery 07/02/25 16:00 07/02/25 18:00 07/02/25 18:21 Temperature Pulse Rate 59 L 103 H Respiratory Rate Blood Pressure 115/57 L Pulse Oximetry Oxygen Delivery 07/02/25 20:00 07/02/25 20:00 07/02/25 20:06 Temperature 97.7 F Pulse Rate 97 108 H 102 H Respiratory Rate 18 Blood Pressure 125/69 Pulse Oximetry 93 Oxygen Delivery 07/02/25 21:07 07/02/25 21:10 07/02/25 21:10 Temperature Pulse Rate 85 Respiratory Rate 18 Blood Pressure Pulse Oximetry 94 94 Oxygen Delivery Room Air Room Air 07/02/25 21:17 07/02/25 22:00 07/02/25 23:33 Temperature 97.5 F L Pulse Rate 87 72 59 L Respiratory Rate 18 18 Blood Pressure 132/69 Pulse Oximetry 94 Oxygen Delivery 07/02/25 23:36 07/03/25 00:00 07/03/25 02:00 Temperature Pulse Rate 58 L 58 L Respiratory Rate Blood Pressure Pulse Oximetry Oxygen Delivery Room Air 07/03/25 02:38 07/03/25 02:51 07/03/25 04:00 Temperature 97.9 F Pulse Rate 56 L 57 L 56 L Respiratory Rate 18 18 16 Blood Pressure 124/66 Pulse Oximetry 94 Oxygen Delivery 07/03/25 04:00 07/03/25 04:00 07/03/25 06:00 Temperature Pulse Rate 60 58 L Respiratory Rate Blood Pressure Pulse Oximetry Oxygen Delivery Room Air 07/03/25 08:00 07/03/25 08:00 07/03/25 08:00 Temperature 97.7 F Pulse Rate 59 L 68 Respiratory Rate 14 Blood Pressure 133/72 Pulse Oximetry 93 Oxygen Delivery Room Air 07/03/25 10:00 Temperature Pulse Rate 59 L Respiratory Rate Blood Pressure Pulse Oximetry Oxygen Delivery Intake/Output Intake/Output: Intake & Output 06/30/25 07/01/25 07/02/25 07/03/25 23:59 23:59 23:59 23:59 Intake Total 609.1 380.8 Output Total 500 Balance 609.1 -119.2 Meds/Results Medications: Active Medications Generic Name Dose Route Start Last Admin Trade Name Freq PRN Reason Stop Dose Admin Acetaminophen 650 mg 07/02/25 13:44 07/02/25 20:57 Acetaminophen 325 Mg Tablet PO 650 mg Q4H PRN Administration Mild Pain (1-3) or Fever Albuterol 2 puff 07/03/25 08:23 Albuterol Sulfate (*Sp) Aerosol 1 Puff INHALATION Q6HRT PRN Shortness Of Breath Aspirin 81 mg 07/03/25 08:00 07/03/25 09:12 Aspirin 81 Mg Chewable Tablet PO 81 mg DAILY@0800 SHERRY Administration Atorvastatin Calcium 20 mg 07/02/25 21:00 07/02/25 20:06 Atorvastatin 20 Mg Tablet PO 20 mg QHS SHERRY Administration Cyclobenzaprine HCl 5 mg 07/02/25 18:19 07/02/25 18:46 Cyclobenzaprine Hcl 5 Mg Tablet PO 5 mg Q8H PRN Administration Muscle Spasm Diphenhydramine HCl 50 mg 07/03/25 21:00 Diphenhydramine Hcl Inj 50 Mg/Ml Vial IV PUSH 07/03/25 21:01 ONCE ONE Docusate Sodium 100 mg 07/02/25 17:00 07/03/25 09:11 Docusate Sodium 100 Mg Capsule PO 100 mg BID SHERRY Administration Duloxetine HCl 60 mg 07/03/25 09:00 07/03/25 09:11 Duloxetine Hcl 60 Mg Capsule.Dr PO 60 mg DAILY SHERRY Administration Fluticasone Propionate 2 spray 07/03/25 09:50 07/03/25 10:10 Fluticasone Propionate 0.05% Na Spr 16 Gm Btl (*Bkc) NASAL 2 spray QAM SHERRY Administration Heparin Sodium (Porcine) 4,000 units 07/02/25 10:16 07/02/25 16:45 Heparin Sodium 5,000 Units/Ml Vial IV PUSH 4,000 units PRN PRN Administration aPTT less than 55 seconds Heparin Sodium (Porcine) 2,500 units 07/02/25 10:16 Heparin Sodium 5,000 Units/Ml Vial IV PUSH PRN PRN aPTT 55 - 70 seconds Hydromorphone HCl 0.5 mg 07/02/25 13:01 07/03/25 09:12 Hydromorphone Hcl Inj (*Crx) 1 Mg/Ml Syr IV PUSH 0.5 mg Q4H PRN Administration Pain Rated 7-10 Ceftriaxone Sodium 1 gm/ 50 mls @ 100 mls/hr 07/03/25 11:00 07/03/25 11:32 Sodium Chloride IVPB 100 mls/hr Q24H SHERRY Administration Heparin Sodium/Dextrose 25,000 units in 250 mls @ 10 mls/hr 07/02/25 10:20 07/03/25 07:30 Heparin Sodium/D5w 100 Units/Ml IV CONT 1,000 units/hr .Q24H SHERRY 10 mls/hr Protocol Titration 1,000 UNITS/HR Sodium Chloride 1,000 mls @ 75 mls/hr 07/02/25 19:45 07/02/25 20:58 Normal Saline Iv IV CONT 75 mls/hr .[id number] SHERRY Administration Lisinopril 40 mg 07/02/25 21:00 07/03/25 09:12 Lisinopril 20 Mg Tablet PO 40 mg Q12HR SHERRY Administration Loratadine 10 mg 07/02/25 18:49 07/03/25 09:11 Loratadine 10 Mg Tablet PO 10 mg QAM PRN Administration allergy symptoms Metoprolol Succinate 100 mg 07/02/25 21:00 07/02/25 20:06 Metoprolol Succinate Ext Rel 100 Mg Tabcr PO 100 mg HS SHERRY Administration Miscellaneous Information 1 each 07/02/25 00:01 07/02/25 23:15 Morphine And Hydromorphone Have A Duplicate Prn Indication Of Pain 7-10. Please Change One XX 08/01/25 00:00 Not Given CLARIFY SHERRY Nitroglycerin 0.4 mg 07/02/25 13:44 07/02/25 17:53 Nitroglycerin Sl 0.4 Mg Tablet SUBLINGUAL 0.4 mg Q5MIN PRN Administration Chest Pain Nitroglycerin 0.5 inch 07/02/25 18:32 07/03/25 06:29 Nitroglycerin Ointment 1 Inch Dose TRANSDERM 0.5 inch Q6HR SHERRY Administration Perflutren Lipid Microsphere 0 ml 07/02/25 13:44 Perflutren Lipid Microspheres 1.5 Ml Vial Diluted To 10 Ml Total Volume IV PUSH 07/05/25 13:46 ONCE PRN adequate visualization Protocol Prednisone 40 mg/ Prednisone 50 mg 07/03/25 09:00 07/03/25 09:12 10 mg PO 07/03/25 21:01 50 mg Q6H SHERRY Administration Radiology Results: ITS Impressions Chest X-Ray 07/02/25 08:23 IMPRESSION: 1. No acute cardiopulmonary findings given portable technique. Abdomen/Pelvis CT 07/02/25 15:26 IMPRESSION: Right-sided obstructive uropathy. Incidental findings detailed above Pulmonary Perfusion Imaging 07/03/25 09:55 IMPRESSION: 1. Low probability for pulmonary embolism. Labs Labs: Laboratory Results - last 24 hr 07/02/25 07/02/25 07/02/25 11:15 16:16 16:16 WBC 6.6 RBC 4.95 Hgb 13.6 Hct 42.7 MCV 86.3 MCH 27.5 MCHC 31.9 L RDW 13.6 Plt Count 163 MPV 9.5 Immature Gran % (Auto) 0.5 Neut % (Auto) 84.8 H Lymph % (Auto) 12.3 L [place] % (Auto) 2.0 L Eos % (Auto) 0.2 Baso % (Auto) 0.2 Lymph # (Auto) 0.82 L [place] # (Auto) 0.1 Eos # (Auto) 0.0 Baso # (Auto) 0.0 Abs Immat Gran (auto) 0.03 Absolute Neuts (auto) 5.6 Absolute Nucleated RBC 0.000 Nucleated RBC % 0.0 PT 14.4 INR 1.1 APTT 47.4 H Cancelled Sodium Potassium Chloride Carbon Dioxide Anion Gap BUN Creatinine Estim Creat Clear Calc Estimated GFR Glucose Calcium Iron TIBC % Saturation Ferritin Troponin I 4.260 H* D Triglycerides Cholesterol LDL Cholesterol Direct HDL Direct Vitamin B12 Folate 07/02/25 07/03/25 22:57 06:14 WBC 6.8 RBC 4.72 Hgb 13.1 Hct 40.5 MCV 85.8 MCH 27.8 MCHC 32.3 RDW 13.4 Plt Count 183 MPV 10.1 Immature Gran % (Auto) 0.4 Neut % (Auto) 87.2 H Lymph % (Auto) 11.7 L [place] % (Auto) 0.6 L Eos % (Auto) 0.0 Baso % (Auto) 0.1 L Lymph # (Auto) 0.79 L [place] # (Auto) 0.0 L Eos # (Auto) 0.0 Baso # (Auto) 0.0 Abs Immat Gran (auto) 0.03 Absolute Neuts (auto) 5.9 Absolute Nucleated RBC 0.000 Nucleated RBC % 0.0 PT INR APTT 110.4 H 96.5 H Sodium 136 L Potassium 3.7 Chloride 105 Carbon Dioxide 26 Anion Gap 5 BUN 18 H Creatinine 0.59 L Estim Creat Clear Calc 81 Estimated GFR > 60 Glucose 178 H Calcium 8.8 Iron 41 TIBC 313 % Saturation 13 L Ferritin 32.60 Troponin I Triglycerides 62 Cholesterol 178 LDL Cholesterol Direct 96 HDL Direct 47 Vitamin B12 914.0 Folate 10.3
--- NOTE | 2025-07-03 11:52 | PM.CNCAR ---
Assessment and Plan Assessment and plan (1) Non-ST elevation VT (NSTEMI): Code(s): I21.4 - Non-ST elevation (NSTEMI) myocardial infarction Status: Acute Plan 70-year-old lady with apparent acute coronary syndrome she has significant risk for coronary disease with hypertension dyslipidemia and family history of premature coronary disease. She presents with chest and shoulder burning like pain there has been a significant troponin rise and no significant ECG abnormalities. Heparin aspirin beta-carlos and statin will be continued. Spoke to the patient has significant length at the symptoms could be related to his obstructive coronary artery disease that could also be related to COVID with the propensity to see sometimes coronary thrombosis without CAD or also the possibility of viral myocarditis is in the differential diagnosis. None the less she should be brought to the manufacturing laborer to delineate her coronary anatomy. Will anticipate arranging for this tomorrow. Paul Oviedo MD [facility] History of Present Illness History of Present Illness Consult date/time: 07/03/25 11:52 Reason For Visit: NSTEMI, chest pain Narrative: this is a very pleasant 70-year-old lady I am seeing at the request of the hospitalist today because of concern regarding acute coronary syndrome / non ST elevation VT. She has no prior history of cardiac problems and recently became ill with coronavirus. She says this is the 3rd time that she has had coronavirus infection. She came to the emergency room a number of days ago feeling ill with generalized myalgias cough and a fever of 102?. She tested positive for COVID and went home for treatment. She came back to the hospital last evening because of some symptoms of burning like upper substernal to shoulder pain that was a bit different than her other pain. In the ER her electrocardiogram was done 3 times was found to be benign her troponin was mildly elevated at 0.07. She was admitted for further evaluation her troponin has risen significantly to 4.2. She was placed on had a heparin infusion her symptoms are much better than they were last evening and she appears to be quite comfortable. She is not known to have any cardiac problems prior to this and considered herself to be overall and in pretty good health. She takes medication for hypertension and dyslipidemia. She is her of dementia several years ago. She has recently taken on 4 foster children. Prior to this illness she is an active lady she does not exercise in a structured fashion but she does not notice any exertional symptoms such as chest pain pressure heaviness or dyspnea. She denies any palpitations orthopnea PND or edema. Review of Systems Constitutional: Constitutional: Reports no additional constitutional complaints Eyes: Eyes: Reports no additional eye complaints ENT: Reports system reviewed and no additional complaints, except as documented Cardiovascular: Cardiovascular: Reports as per HPI Respiratory: Respiratory: Reports cough and Reports dyspnea Gastrointestinal: Gastrointestinal: Reports no additional gastrointestinal complaints Musculoskeletal: Musculoskeletal: Reports no additional musculoskeletal complaints Comments: Generalized myalgias Integumentary/Breasts: Skin/Breast: Reports system reviewed and no additional complaints, except as docu Neurologic: Reports system reviewed and no additional complaints, except as documented Endocrine: Endocrine: Reports no additional endocrine complaints Hematologic/Lymphatic: Hematologic/Lymphatic: Reports no additional hematologic/lymphatic complaints Allergic/Immunologic: Allergic/Immunologic: Reports no additional allergic/immunologic complaints [facility] Past Medical History Medical History (Updated 07/03/25 @ 09:18 by Erick Nails MD) Left renal mass (~07/02/25) 2 x 2 cm lesion midpole left kidney on CT 07/02/2025. Lower GI bleed Hematochezia Conjunctivitis Acute sinusitis Throat pain Chronic sinusitis BMI 31.0-31.9,adult Iron deficiency anemia, unspecified (~04/06/24) hemoglobin 12.3 on 02/20/2024. Hemoglobin 10.9 with iron 25 with 6% saturation and ferritin 7 on 04/06/2024. Hemoglobin 12.8 with iron 57 with 16% saturation and ferritin 13 on 10/15/2024. At low risk for fall Fatigue TSH normal at 1.68 hemoglobin 13.3 on 09/17/2023. Gross hematuria (~03/2023) Urinalysis with 3+ blood, 2+ protein, 3+ leukocytes, bacteria on 09/17/2023. Urinalysis with trace protein and 2+ blood with 3-10 RBCs on 10/15/2024. COVID-19 (03/12/23) 2nd episode starting 03/12/2023. Benign paroxysmal positional vertigo due to bilateral vestibular disorder (~2021) At moderate risk for fall (~09/12/22) patient fell twice within 1 year after tripping on dog and also stepping in a hole. COVID-19 (05/04/22) tested positive 05/05/2022. BMI 32.0-32.9,adult BMI 33.0-33.9,adult Obesity (BMI 30.0-34.9) Osteoarthritis of right knee Seasonal allergies Arthritis Mild peripheral edema Chronic pain of right knee X-ray on 11/07/2021 reveals moderate tricompartmental osteoarthritis with small effusion. PND (post-nasal drip) Otalgia of both ears Ear itching Allergic rhinitis Rhinorrhea Hypertrophy of both inferior nasal turbinates Nasal septal deviation Nasal obstruction Nasal congestion UTI (urinary tract infection) Overactive bladder Anxiety Low back pain with bilateral sciatica X-ray of the lumbar spine on 04/18/2023 reveals diffuse moderate multilevel degenerative disc disease and severe degenerative disc disease at L2-L3 and L3-L4 with severe facet arthropathy at L4-L5 and L5-S1 with anterior listhesis 8 mm L4 on L5 and retrolisthesis of 5 mm on L2-L3. Moderate scoliosis. (07/14/20) Acute non-recurrent maxillary sinusitis BMI 35.0-35.9,adult Colon cancer screening normal colonoscopy 03/17/2024 with internal hemorrhoids with no active bleeding. Fever blister Grieving Breast cancer screening by mammogram Normal mammogram 04/02/2022. Acute abdominal pain in right flank Acute bilateral low back pain without sciatica UTI (urinary tract infection), uncomplicated Surgical History Surgical History H/O lithotripsy History of hysterectomy Family History Family History Grandparent Asthma, Onset Age: 55 Acute myocardial infarction, Onset Age: 60 Family history of chronic obstructive pulmonary disease, Onset Age: 60 Diabetes mellitus Mother Family history of cardiovascular disease, Onset Age: 71 Family history of chronic obstructive pulmonary disease, Onset Age: 71 Father Asthma Hypertension Heart disease History of myocardial infarction Sibling COPD (chronic obstructive pulmonary disease) Social History Social History Smoking status: Never smoker Alcohol intake: never Substance use: never Substance use type: does not use Lack of Transportation: No Lack of Food: Never True Current Housing: I Have Housing Concerned About Future Housing: No Difficulty Paying Gas/Electric Bills: No Difficulty Paying for Meds: No Currently Unemployed: No Education: High School Diploma/GED Difficulty w/ Childcare or Family Care: No Living arrangements: with family Additional living arrangements comments: Adopting 4 children; Daughter and grand-daughter live near as well Occupation/Education: retired Additional occupation/education comments: 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 b.i.d. #180 tabs 06/10/24 07/02/25 Rx duloxetine 60 mg capsule,delayed 60 mg PO DAILY #90 caps 09/20/24 07/02/25 Rx release (Cymbalta) meloxicam 15 mg tablet 15 mg PO DAILY PRN pain #90 tabs 01/14/25 07/02/25 Rx metoprolol succinate 100 mg 100 mg PO . q.h.s. #90 tabs 01/14/25 07/02/25 Rx tablet,extended release 24 hr atorvastatin 20 mg tablet 20 mg PO QHS #90 tabs 02/09/25 07/02/25 Rx acetaminophen 500 mg capsule 1,000 mg (2 x 500 mg) PO Q6H PRN 06/26/25 07/02/25 Rx pain #30 caps ibuprofen 600 mg tablet 600 mg PO TID PRN pain #30 tabs 06/26/25 07/02/25 Rx Allergies Allergy/AdvReac Type Severity Reaction Status Date / Time Iodinated Contrast Media Allergy Swelling Verified 07/02/25 07:46 of Lip/Tongue/Throat oxycodone AdvReac Severe Agitated Verified 07/02/25 23:16 latex AdvReac Mild Hives Verified 07/02/25 07:46 Vital Signs Vital Signs - 24 hr 07/02/25 12:01 07/02/25 12:17 07/02/25 12:31 Temperature Pulse Rate 63 62 61 Respiratory Rate 19 16 12 Blood Pressure 163/72 H 156/79 H 154/74 H Pulse Oximetry 97 98 96 Oxygen Delivery 07/02/25 12:46 07/02/25 13:01 07/02/25 13:32 Temperature Pulse Rate 59 L 59 L 61 Respiratory Rate 15 14 16 Blood Pressure 161/79 H 170/78 H 148/75 H Pulse Oximetry 97 99 95 Oxygen Delivery 07/02/25 13:36 07/02/25 13:39 07/02/25 13:54 Temperature Pulse Rate 61 65 Respiratory Rate 20 20 Blood Pressure Pulse Oximetry 96 Oxygen Delivery Room Air 07/02/25 14:35 07/02/25 15:55 07/02/25 16:00 Temperature 36.6 C Pulse Rate 64 96 59 L Respiratory Rate 16 18 Blood Pressure 142/72 H 165/72 H Pulse Oximetry 97 96 Oxygen Delivery 07/02/25 18:00 07/02/25 18:21 07/02/25 20:00 Temperature 36.5 C Pulse Rate 103 H 97 Respiratory Rate 18 Blood Pressure 115/57 L 125/69 Pulse Oximetry 93 Oxygen Delivery 07/02/25 20:00 07/02/25 20:06 07/02/25 21:07 Temperature Pulse Rate 108 H 102 H Respiratory Rate Blood Pressure Pulse Oximetry 94 Oxygen Delivery Room Air 07/02/25 21:10 07/02/25 21:10 07/02/25 21:17 Temperature Pulse Rate 85 87 Respiratory Rate 18 18 Blood Pressure Pulse Oximetry 94 Oxygen Delivery Room Air 07/02/25 22:00 07/02/25 23:33 07/02/25 23:36 Temperature 36.4 C L Pulse Rate 72 59 L Respiratory Rate 18 Blood Pressure 132/69 Pulse Oximetry 94 Oxygen Delivery Room Air 07/03/25 00:00 07/03/25 02:00 07/03/25 02:38 Temperature Pulse Rate 58 L 58 L 56 L Respiratory Rate 18 Blood Pressure Pulse Oximetry Oxygen Delivery 07/03/25 02:51 07/03/25 04:00 07/03/25 04:00 Temperature 36.6 C Pulse Rate 57 L 56 L Respiratory Rate 18 16 Blood Pressure 124/66 Pulse Oximetry 94 Oxygen Delivery Room Air 07/03/25 04:00 07/03/25 06:00 07/03/25 08:00 Temperature 36.5 C Pulse Rate 60 58 L 59 L Respiratory Rate 14 Blood Pressure 133/72 Pulse Oximetry 93 Oxygen Delivery 07/03/25 08:00 07/03/25 08:00 07/03/25 10:00 Temperature Pulse Rate 68 59 L Respiratory Rate Blood Pressure Pulse Oximetry Oxygen Delivery Room Air Exam Const: General: comfortable and no acute distress Other: very pleasant lady appearing her stated age IV heparin running she has reporting no complaints at this time HENMT: Mouth: Yes moist mucous membranes Eyes: Sclera: sclerae normal Neck: Neck: supple and no JVD Resp: Effort & Inspection: normal respiratory effort Other: breath sounds are without rales rhonchi or wheezing Cardio: Rate: regular rate Rhythm: regular rhythm Other: PMI is nondisplaced no audible cardiac murmur no gallop GI: GI Palp: Yes Soft to palpation Auscultation: normal bowel sounds Skin: General skin exam: normal color Neuro: Other: alert and oriented x3 Extrem: Other: good perfusion, no edema Results Labs and Meds 07/03/25 06:14 07/03/25 06:14 Lab results: Coagulation 07/02/25 07/02/25 07/02/25 Range/Units 16:16 16:16 22:57 PT 14.4 (11.1-14.7) Seconds APTT 47.4 H Cancelled 110.4 H (22.3-36.8) Seconds 07/03/25 Range/Units 06:14 PT (11.1-14.7) Seconds APTT 96.5 H (22.3-36.8) Seconds Lipids 07/03/25 Range/Units 06:14 Triglycerides 62 (<150) mg/dL Cholesterol 178 (0-200) mg/dL CBC 07/02/25 07/03/25 Range/Units 16:16 06:14 WBC 6.6 6.8 (4.5-10.0) K/mm3 RBC 4.95 4.72 (4.2-5.4) M/mm3 Hgb 13.6 13.1 (12.0-15.0) g/dL Hct 42.7 40.5 (37.0-47.0) % Plt Count 163 183 (150-375) k/mm3 Lymph # (Auto) 0.82 L 0.79 L (0.9-3.2) K/mm3 [place] # (Auto) 0.1 0.0 L (0.1-0.6) K/mm3 Eos # (Auto) 0.0 0.0 (0-0.3) K/mm3 Baso # (Auto) 0.0 0.0 (0.0-0.1) K/mm3 Comprehensive Metabolic Panel 07/03/25 Range/Units 06:14 Sodium 136 L (137-145) mmol/L Potassium 3.7 (3.4-5.0) mmol/L Chloride 105 (98-107) mmol/L Carbon Dioxide 26 (22-30) mmol/L BUN 18 H (7-17) mg/dL Creatinine 0.59 L (0.7-1.0) mg/dL Glucose 178 H (65-110) mg/dL Calcium 8.8 (8.4-10.2) mg/dL Intake and Output 07/02/25 07/03/25 07/03/25 23:59 07:59 15:59 Intake Total 559.1 380.8 Output Total 500 Balance 559.1 -119.2 Intake: IV 119.1 80.8 Heparin Sod/D5w 100 Units/ml 25 119.1 80.8 ,000 units In 250 ml @ 1,000 UNITS/HR 10 mls/hr IV CONT . Q24H [facility] Rx#:[id number] Oral 440 300 Output: Urine 500 Patient Weight 07/03/25 23:59 Weight 85.5 kg
[2025-07-03] MEDS: HEPARIN SOD/D5W 100 UNITS/ML 25,000 UNITS/250 ML BAG 10 UNITS IV CONT (13:32)
[2025-07-03] MEDS: SODIUM CHLORIDE 0.9% IV 1,000 ML 75 ML IV CONT (13:33)
[2025-07-03 13:40] LABS: Partial Thromboplastin Time 84.2 Seconds (22.3-36.8)
[2025-07-03] MEDS: ACETAMINOPHEN 325 MG TABLET 650 MG PO ×2 (17:13→21:05)
[2025-07-03] MEDS: METOPROLOL SUCCINATE EXT REL 100 MG TABCR PO (21:04)
[2025-07-03] MEDS: ATORVASTATIN 20 MG TABLET PO (21:05)
[2025-07-04] VITALS (19 sets, daily range): BP systolic 111–144; BP diastolic 54–72; PULSE 48–62; RESP 12–20; TEMP 36.3–36.7; O2SAT 92–97
[2025-07-04] MEDS: NITROGLYCERIN OINTMENT 1 INCH DOSE 0.5 INCH TRANSDERM ×3 (00:17→11:15)
[2025-07-04] MEDS: SODIUM CHLORIDE 0.9% IV 1,000 ML 75 ML IV CONT (03:14)
[2025-07-04 05:39] LABS: Hematocrit 36.8 % (37.0-47.0); Hemoglobin 11.7 g/dL (12.0-15.0); Immature Granulocyte Percent A 0.7 % (0-0.5); Lymphocytes Absolute Auto 1.09 K/mm3 (0.9-3.2); Mean Corpuscular HGB Conc 31.8 g/dl (32-36); Mean Corpuscular Hemoglobin 27.5 pg (26-34); Mean Corpuscular Volume 86.4 fl (80-100); Nucleated Red Blood Cells Absolute Auto 0.000 K/mm3 (0.0-0.012); Nucleated Red Blood Cells Perc 0.0 % (0.0-0.2); Platelet Count Result 202 k/mm3 (150-375); Red Blood Count 4.26 M/mm3 (4.2-5.4); White Blood Count 16.2 K/mm3 (4.5-10.0)
[2025-07-04 05:51] LABS: Partial Thromboplastin Time 81.2 Seconds (22.3-36.8)
[2025-07-04 07:03] LABS: Alanine Aminotransferase 22 U/L (6-35); Albumin Level 3.2 g/dL (3.5-5.1); Alkaline Phosphatase 57 U/L (38-126); Anion Gap 4 mmol/L (4-12); Aspartate Amino Transferase 52 U/L (14-36); Bilirubin,Total 0.4 mg/dL (0.2-1.3); Blood Urea Nitrogen 22 mg/dL (7-17); Calcium 8.5 mg/dL (8.4-10.2); Carbon Dioxide 25 mmol/L (22-30); Chloride 106 mmol/L (98-107); Estimated CRCL calculation 73 ml/min; Estimated Glomerular Filt Rate > 60; Glucose 156 mg/dL (65-110); Magnesium 1.8 mg/dL (1.6-2.3); Potassium 3.7 mmol/L (3.4-5.0); Sodium 135 mmol/L (137-145); Total Protein 5.8 g/dL (6.3-8.2)
[2025-07-04] MEDS: ASPIRIN 81 MG CHEWABLE TABLET PO (09:30)
[2025-07-04] MEDS: FLUTICASONE PROPIONATE 0.05% NA SPR 16 GM BTL (*BKC) 2 SPRAY NASAL (09:30)
[2025-07-04] MEDS: DULoxetine HCL 60 MG CAPSULE.DR PO (09:30)
[2025-07-04] MEDS: DOCUSATE SODIUM 100 MG CAPSULE PO (09:30)
--- NOTE | 2025-07-04 10:58 | P.PNCA_ITS ---
Progress Note: A&P Assessment and Plan (1) Non-ST elevation [place] (NSTEMI): Code(s): I21.4 - Non-ST elevation (NSTEMI) myocardial infarction Status: Acute (2) Mixed hyperlipidemia: Code(s): E78.2 - Mixed hyperlipidemia Status: Acute (3) Essential (primary) hypertension: Code(s): I10 - Essential (primary) hypertension Status: Acute Plan Diagnosis: NSTEMI-chest pain, elevated troponin to 4.260 Hypertension-controlled Hyperlipidemia on statin COVID infection Plan: Recommend cardiac catheterization to further evaluate coronaries and possible PCI. Alternatives, risks and benefits of cardiac catheterization discussed with the patient and she is agreeable to proceed. Keep NPO She has contrast allergy. Pretreating with prednisone Continue aspirin 81 mg daily, atorvastatin 20 mg daily, metoprolol 100 mg daily Continue heparin drip Check and replace electrolytes to keep potassium greater than 4 and magnesium greater than 2 Management of other medical problems primary team Plan discussed with patient and she is agreeable Subjective Date/time seen: 07/04/25 10:58 Interval history: Reason for encounter: NSTEMI Relevant history: 70-year-old female with active COVID infection, NSTEMI with troponin elevated to 4.260. Cardiology consulted for further management for NSTEMI Interval history: Patient denies any recurrence of chest pain. She remained short of breath. No dizziness, lightheadedness, palpitations. Telemetry shows sinus rhythm with controlled rates. Review of Systems Cardiovascular: Comments: As per HPI Respiratory: Comments: As per HPI Exam Narrative: General: Alert oriented x3, no acute distress Neck: Supple, JVD + Chest: Bilaterally clear to auscultation, no rales or rhonchi Cardiac: S1, S2 +, regular rate, regular rhythm, no murmurs or rubs Extremities: Bilateral lower extremity edema 1+, no skin rash Neurologic: Alert and oriented x3, no focal neurological deficits Objective Data Vital Signs Vital Signs: Vital Signs - 24 hr 07/03/25 12:00 07/03/25 12:00 07/03/25 12:00 Temperature 36.8 C Pulse Rate 59 L 60 Respiratory Rate 20 Blood Pressure 138/69 Pulse Oximetry 94 Oxygen Delivery Room Air Fraction of Inspired Oxygen 07/03/25 14:00 07/03/25 16:00 07/03/25 16:00 Temperature 36.7 C Pulse Rate 68 66 61 Respiratory Rate 18 Blood Pressure 125/66 Pulse Oximetry 92 Oxygen Delivery Fraction of Inspired Oxygen 07/03/25 16:00 07/03/25 18:00 07/03/25 20:00 Temperature Pulse Rate 70 Respiratory Rate Blood Pressure Pulse Oximetry Oxygen Delivery Room Air Room Air Fraction of Inspired Oxygen 07/03/25 20:00 07/03/25 20:00 07/03/25 21:04 Temperature 37.1 C Pulse Rate 77 67 75 Respiratory Rate 16 Blood Pressure 132/66 Pulse Oximetry 93 Oxygen Delivery Fraction of Inspired Oxygen 07/03/25 21:55 07/03/25 22:00 07/04/25 00:00 Temperature 36.4 C Pulse Rate 55 L 57 L 58 L Respiratory Rate 20 18 Blood Pressure 128/69 Pulse Oximetry 95 94 Oxygen Delivery Room Air Fraction of Inspired Oxygen 07/04/25 00:00 07/04/25 00:00 07/04/25 02:00 Temperature Pulse Rate 56 L 52 L Respiratory Rate Blood Pressure Pulse Oximetry Oxygen Delivery Room Air Fraction of Inspired Oxygen 07/04/25 04:00 07/04/25 04:00 07/04/25 04:00 Temperature 36.6 C Pulse Rate 49 L 55 L Respiratory Rate 16 Blood Pressure 133/72 Pulse Oximetry 93 Oxygen Delivery Room Air Fraction of Inspired Oxygen 07/04/25 06:00 07/04/25 08:00 Temperature 36.3 C L Pulse Rate 48 L 57 L Respiratory Rate 18 Blood Pressure 143/70 H Pulse Oximetry 97 Oxygen Delivery Fraction of Inspired Oxygen Intake/Output Intake/Output: Intake & Output 07/01/25 07/02/25 07/03/25 07/04/25 23:59 23:59 23:59 23:59 Intake Total 609.1 2462.2 1262 Output Total 500 Balance 609.1 1962.2 1262 Meds/Results Medications: Active Medications Generic Name Dose Route Start Last Admin Trade Name Freq PRN Reason Stop Dose Admin Acetaminophen 650 mg 07/02/25 13:44 07/03/25 21:05 Acetaminophen 325 Mg Tablet PO 650 mg Q4H PRN Administration Mild Pain (1-3) or Fever Albuterol 2 puff 07/03/25 08:23 Albuterol Sulfate (*Sp) Aerosol 1 Puff INHALATION Q6HRT PRN Shortness Of Breath Aspirin 81 mg 09/21/25 08:00 07/04/25 09:30 Aspirin 81 Mg Chewable Tablet PO 81 mg DAILY@0800 SHERRY Administration Atorvastatin Calcium 20 mg 07/02/25 21:00 07/03/25 21:05 Atorvastatin 20 Mg Tablet PO 20 mg QHS SHERRY Administration Cyclobenzaprine HCl 5 mg 07/02/25 18:19 07/02/25 18:46 Cyclobenzaprine Hcl 5 Mg Tablet PO 5 mg Q8H PRN Administration Muscle Spasm Docusate Sodium 100 mg 07/02/25 17:00 07/04/25 09:30 Docusate Sodium 100 Mg Capsule PO 100 mg BID SHERRY Administration Duloxetine HCl 60 mg 07/03/25 09:00 07/04/25 09:30 Duloxetine Hcl 60 Mg Capsule.Dr PO 60 mg DAILY SHERRY Administration Fluticasone Propionate 2 spray 07/03/25 09:50 07/04/25 09:30 Fluticasone Propionate 0.05% Na Spr 16 Gm Btl (*Bkc) NASAL 2 spray QAM SHERRY Administration Heparin Sodium (Porcine) 4,000 units 07/02/25 10:16 07/02/25 16:45 Heparin Sodium 5,000 Units/Ml Vial IV PUSH 4,000 units PRN PRN Administration aPTT less than 55 seconds Heparin Sodium (Porcine) 2,500 units 07/02/25 10:16 Heparin Sodium 5,000 Units/Ml Vial IV PUSH PRN PRN aPTT 55 - 70 seconds Hydromorphone HCl 0.5 mg 07/02/25 13:01 07/03/25 09:12 Hydromorphone Hcl Inj (*Crx) 1 Mg/Ml Syr IV PUSH 0.5 mg Q4H PRN Administration Pain Rated 7-10 Ceftriaxone Sodium 1 gm/ 50 mls @ 100 mls/hr 07/03/25 11:00 07/03/25 11:32 Sodium Chloride IVPB 100 mls/hr Q24H SHERRY Administration Heparin Sodium/Dextrose 25,000 units in 250 mls @ 10 mls/hr 07/02/25 10:20 07/04/25 05:52 Heparin Sodium/D5w 100 Units/Ml IV CONT 1,000 units/hr .Q24H SHERRY 10 mls/hr Protocol Titration 1,000 UNITS/HR Sodium Chloride 1,000 mls @ 75 mls/hr 07/02/25 19:45 07/04/25 03:14 Normal Saline Iv IV CONT 75 mls/hr .[id number] SHERRY Administration Lisinopril 40 mg 07/02/25 21:00 07/04/25 09:30 Lisinopril 20 Mg Tablet PO 40 mg Q12HR SHERRY Administration Loratadine 10 mg 07/02/25 18:49 07/03/25 09:11 Loratadine 10 Mg Tablet PO 10 mg QAM PRN Administration allergy symptoms Metoprolol Succinate 100 mg 07/02/25 21:00 07/03/25 21:04 Metoprolol Succinate Ext Rel 100 Mg Tabcr PO 100 mg HS SHERRY Administration Nitroglycerin 0.4 mg 07/02/25 13:44 07/02/25 17:53 Nitroglycerin Sl 0.4 Mg Tablet SUBLINGUAL 0.4 mg Q5MIN PRN Administration Chest Pain Nitroglycerin 0.5 inch 07/02/25 18:32 07/04/25 05:56 Nitroglycerin Ointment 1 Inch Dose TRANSDERM 0.5 inch Q6HR SHERRY Administration Perflutren Lipid Microsphere 0 ml 07/02/25 13:44 Perflutren Lipid Microspheres 1.5 Ml Vial Diluted To 10 Ml Total Volume IV PUSH 07/05/25 13:46 ONCE PRN adequate visualization Protocol Prednisone 20 mg 07/04/25 11:00 Prednisone 20 Mg Tablet PO 07/04/25 11:01 ONCE ONE Prednisone 60 mg 07/04/25 14:00 Prednisone 20 Mg Tablet PO 07/04/25 14:01 ONCE ONE Radiology Results: ITS Impressions Chest X-Ray 07/02/25 08:23 IMPRESSION: 1. No acute cardiopulmonary findings given portable technique. Abdomen/Pelvis CT 07/02/25 15:26 IMPRESSION: Right-sided obstructive uropathy. Incidental findings detailed above Pulmonary Perfusion Imaging 07/03/25 09:55 IMPRESSION: 1. Low probability for pulmonary embolism. Renal Ultrasound 07/03/25 15:16 Impression: Bilateral renal calculi, no hydronephrosis identified Chest CTA 07/04/25 08:37 IMPRESSION: 1. No pulmonary embolus. Labs Labs: Laboratory Results - last 24 hr 07/03/25 07/04/25 13:21 05:11 WBC 16.2 H RBC 4.26 Hgb 11.7 L Hct 36.8 L MCV 86.4 MCH 27.5 MCHC 31.8 L RDW 13.7 Plt Count 202 MPV 10.2 Immature Gran % (Auto) 0.7 H Neut % (Auto) 90.0 H Lymph % (Auto) 6.7 L [place] % (Auto) 2.5 L Eos % (Auto) 0.0 Baso % (Auto) 0.1 L Lymph # (Auto) 1.09 [place] # (Auto) 0.4 Eos # (Auto) 0.0 Baso # (Auto) 0.0 Abs Immat Gran (auto) 0.12 H Absolute Neuts (auto) 14.6 H Absolute Nucleated RBC 0.000 Nucleated RBC % 0.0 APTT 84.2 H 81.2 H Sodium 135 L Potassium 3.7 Chloride 106 Carbon Dioxide 25 Anion Gap 4 BUN 22 H Creatinine 0.68 L Estim Creat Clear Calc 73 Estimated GFR > 60 Glucose 156 H Calcium 8.5 Magnesium 1.8 Total Bilirubin 0.4 AST 52 H ALT 22 Alkaline Phosphatase 57 Total Protein 5.8 L Albumin 3.2 L
--- NOTE | 2025-07-04 11:03 | P.SEDATION_ITS ---
Moderate Sedation Note-Pt Data Patient Data Allergies Allergy/AdvReac Type Severity Reaction Status Date / Time Iodinated Contrast Media Allergy Swelling Verified 07/02/25 07:46 of Lip/Tongue/Throat oxycodone AdvReac Severe Agitated Verified 07/02/25 23:16 latex AdvReac Mild Hives Verified 07/02/25 07:46 Home Medications ?Medication ?Instructions ?Recorded ?Confirmed ?Type cetirizine 10 mg tablet (Zyrtec) 10 mg PO DAILY PRN al lergy symptoms 08/01/20 07/02/25 History fluticasone propionate 50 1 spray intranasal BID 03/0507/02/25 History mcg/actuation nasal spray,suspension lisinopril 40 mg tablet 40 mg PO . b.i.d. #180 tabs 06/10/24 07/02/25 Rx duloxetine 60 mg capsule,delayed 60 mg PO DAILY #90 ca ps 09/20/24 07/02/25 Rx release (Cymbalta) meloxicam 15 mg tablet 15 mg PO DAILY PRN pain #90 tabs 01/14/25 07/02/25 Rx metoprolol succinate 100 mg 100 mg PO . q.h.s. #90 tab s 01/14/25 07/02/25 Rx tablet,extended release 24 hr atorvastatin 20 mg tablet 20 mg PO QHS #90 tabs 07/02/25 Rx acetaminophen 500 mg capsule 1,000 mg (2 x 500 mg) PO Q6H PRN 06/26/25 07/02/25 Rx pain #30 caps ibuprofen 600 mg tablet 600 mg PO TID PRN pain #30 t abs 06/26/25 07/02/25 Rx Current Medications: Active Medications Acetaminophen (Acetaminophen 325 Mg Tablet) 650 mg PO Q4H PRN PRN Reason: Mild Pain (1-3) or Fever Last Admin: 07/03/25 21:05 Dose: 650 mg Albuterol (Albuterol Sulfate (*Sp) Aerosol 1 Puff) 2 puff INHALATION Q6HRT PRN PRN Reason: Shortness Of Breath Aspirin (Aspirin 81 Mg Chewable Tablet) 81 mg PO DAILY@0800 [facility] Last Admin: 07/04/25 09:30 Dose: 81 mg Atorvastatin Calcium (Atorvastatin 20 Mg Tablet) 20 mg PO QHS [facility] Last Admin: 07/03/25 21:05 Dose: 20 mg Cyclobenzaprine HCl (Cyclobenzaprine Hcl 5 Mg Tablet) 5 mg PO Q8H PRN PRN Reason: Muscle Spasm Last Admin: 07/02/25 18:46 Dose: 5 mg Diphenhydramine HCl (Diphenhydramine Hcl Inj 50 Mg/Ml Vial) 50 mg IV PUSH ONCE ONE Stop: 07/04/25 14:01 Docusate Sodium (Docusate Sodium 100 Mg Capsule) 100 mg PO BID [facility] Last Admin: 07/04/25 09:30 Dose: 100 mg Duloxetine HCl (Duloxetine Hcl 60 Mg Capsule.Dr) 60 mg PO DAILY [facility] Last Admin: 07/04/25 09:30 Dose: 60 mg Fluticasone Propionate (Fluticasone Propionate 0.05% Na Spr 16 Gm Btl (*Bkc)) 2 spray NASAL QAM [facility] Last Admin: 07/04/25 09:30 Dose: 2 spray Heparin Sodium (Porcine) (Heparin Sodium 5,000 Units/Ml Vial) 4,000 units IV PUSH PRN PRN PRN Reason: aPTT less than 55 seconds Last Admin: 07/02/25 16:45 Dose: 4,000 units Heparin Sodium (Porcine) (Heparin Sodium 5,000 Units/Ml Vial) 2,500 units IV PUSH PRN PRN PRN Reason: aPTT 55 - 70 seconds Hydromorphone HCl (Hydromorphone Hcl Inj (*Crx) 1 Mg/Ml Syr) 0.5 mg IV PUSH Q4H PRN PRN Reason: Pain Rated 7-10 Last Admin: 07/03/25 09:12 Dose: 0.5 mg Ceftriaxone Sodium 1 gm/ (Sodium Chloride) 50 mls @ 100 mls/hr IVPB Q24H [facility] Last Admin: 07/03/25 11:32 Dose: 100 mls/hr Heparin Sodium/Dextrose (Heparin Sodium/D5w 100 Units/Ml) 25,000 units in 250 mls @ 10 mls/hr IV CONT .Q24H [facility]; Protocol Last Titration: 07/04/25 05:52 Dose: 1,000 units/hr, 10 mls/hr Sodium Chloride (Normal Saline Iv) 1,000 mls @ 75 mls/hr IV CONT .[id number] [facility] Last Admin: 07/04/25 03:14 Dose: 75 mls/hr Lisinopril (Lisinopril 20 Mg Tablet) 40 mg PO Q12HR SHERRY Last Admin: 07/04/25 09:30 Dose: 40 mg Loratadine (Loratadine 10 Mg Tablet) 10 mg PO QAM PRN PRN Reason: allergy symptoms Last Admin: 07/03/25 09:11 Dose: 10 mg Metoprolol Succinate (Metoprolol Succinate Ext Rel 100 Mg Tabcr) 100 mg PO HS SHERRY Last Admin: 07/03/25 21:04 Dose: 100 mg Nitroglycerin (Nitroglycerin Sl 0.4 Mg Tablet) 0.4 mg SUBLINGUAL Q5MIN PRN PRN Reason: Chest Pain Last Admin: 07/02/25 17:53 Dose: 0.4 mg Nitroglycerin (Nitroglycerin Ointment 1 Inch Dose) 0.5 inch TRANSDERM Q6HR SHERRY Last Admin: 07/04/25 05:56 Dose: 0.5 inch Perflutren Lipid Microsphere (Perflutren Lipid Microspheres 1.5 Ml Vial Diluted To 10 Ml Total Volume) 0 ml IV PUSH ONCE PRN; Protocol PRN Reason: adequate visualization Stop: 07/05/25 13:46 Prednisone (Prednisone 20 Mg Tablet) 60 mg PO ONCE ONE Stop: 07/04/25 14:01 Sedation/Anesthesia: No previous sedation/anesthesia problems (including family history). [facility] Past Medical History Medical History (Updated 07/03/25 @ 20:33 by Erick Nails MD) Left renal mass (~07/02/25) 2 x 2 cm lesion midpole left kidney on CT 07/02/2025.No renal mass on renal ultrasound 07/03/2025. Lower GI bleed Hematochezia Conjunctivitis Acute sinusitis Throat pain Chronic sinusitis BMI 31.0-31.9,adult Iron deficiency anemia, unspecified (~04/06/24) hemoglobin 12.3 on 02/20/2024. Hemoglobin 10.9 with iron 25 with 6% saturation and ferritin 7 on 04/06/2024. Hemoglobin 12.8 with iron 57 with 16% saturation and ferritin 13 on 10/15/2024. At low risk for fall Fatigue TSH normal at 1.68 hemoglobin 13.3 on 09/17/2023. Gross hematuria (~03/2023) Urinalysis with 3+ blood, 2+ protein, 3+ leukocytes, bacteria on 09/17/2023. Urinalysis with trace protein and 2+ blood with 3-10 RBCs on 10/15/2024. COVID-19 (03/12/23) 2nd episode starting 03/12/2023. Benign paroxysmal positional vertigo due to bilateral vestibular disorder (~2021) At moderate risk for fall (~09/12/22) patient fell twice within 1 year after tripping on dog and also stepping in a hole. COVID-19 (05/04/22) tested positive 05/05/2022. BMI 32.0-32.9,adult BMI 33.0-33.9,adult Obesity (BMI 30.0-34.9) Osteoarthritis of right knee Seasonal allergies Arthritis Mild peripheral edema Chronic pain of right knee X-ray on 11/07/2021 reveals moderate tricompartmental osteoarthritis with small effusion. PND (post-nasal drip) Otalgia of both ears Ear itching Allergic rhinitis Rhinorrhea Hypertrophy of both inferior nasal turbinates Nasal septal deviation Nasal obstruction Nasal congestion UTI (urinary tract infection) Overactive bladder Anxiety Low back pain with bilateral sciatica X-ray of the lumbar spine on 04/18/2023 reveals diffuse moderate multilevel degenerative disc disease and severe degenerative disc disease at L2-L3 and L3-L4 with severe facet arthropathy at L4-L5 and L5-S1 with anterior listhesis 8 mm L4 on L5 and retrolisthesis of 5 mm on L2-L3. Moderate scoliosis. (07/14/20) Acute non-recurrent maxillary sinusitis BMI 35.0-35.9,adult Colon cancer screening normal colonoscopy 03/17/2024 with internal hemorrhoids with no active bleeding. Fever blister Grieving Breast cancer screening by mammogram Normal mammogram 04/02/2022. Acute abdominal pain in right flank Acute bilateral low back pain without sciatica UTI (urinary tract infection), uncomplicated Surgical History Surgical History H/O lithotripsy History of hysterectomy Family History Family History Grandparent Asthma, Onset Age: 55 Acute myocardial infarction, Onset Age: 60 Family history of chronic obstructive pulmonary disease, Onset Age: 60 Diabetes mellitus Mother Family history of cardiovascular disease, Onset Age: 71 Family history of chronic obstructive pulmonary disease, Onset Age: 71 Father Asthma Hypertension Heart disease History of myocardial infarction Sibling COPD (chronic obstructive pulmonary disease) Social History Social History Smoking status: Never smoker Alcohol intake: never Substance use: never Substance use type: does not use Lack of Transportation: No Lack of Food: Never True Current Housing: I Have Housing Concerned About Future Housing: No Difficulty Paying Gas/Electric Bills: No Difficulty Paying for Meds: No Currently Unemployed: No Education: High School Diploma/GED Difficulty w/ Childcare or Family Care: No Living arrangements: with family Additional living arrangements comments: Adopting 4 children; Daughter and grand-daughter live near as well Occupation/Education: retired Additional occupation/education comments: 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 Spiritual care concerns: No Mod Sed Physical Exam Physical Exam Pre Procedural Exam: Normal: Lungs, Heart Rate and Heart Rhythm Hours since solid foods: 12 Hours since liquid intake: 12 Mallampati Classification: class II Internal Medicine - PN: Obj Da Vital Signs Vital Signs: Vital Signs - 24 hr 07/03/25 12:00 07/03/25 12:00 07/03/25 12:00 Temperature 36.8 C Pulse Rate 59 L 60 Respiratory Rate 20 Blood Pressure 138/69 Pulse Oximetry 94 Oxygen Delivery Room Air Fraction of Inspired Oxygen 07/03/25 14:00 07/03/25 16:00 07/03/25 16:00 Temperature 36.7 C Pulse Rate 68 66 61 Respiratory Rate 18 Blood Pressure 125/66 Pulse Oximetry 92 Oxygen Delivery Fraction of Inspired Oxygen 07/03/25 16:00 07/03/25 18:00 07/03/25 20:00 Temperature Pulse Rate 70 Respiratory Rate Blood Pressure Pulse Oximetry Oxygen Delivery Room Air Room Air Fraction of Inspired Oxygen 07/03/25 20:00 07/03/25 20:00 07/03/25 21:04 Temperature 37.1 C Pulse Rate 77 67 75 Respiratory Rate 16 Blood Pressure 132/66 Pulse Oximetry 93 Oxygen Delivery Fraction of Inspired Oxygen 07/03/25 21:55 07/03/25 22:00 07/04/25 00:00 Temperature 36.4 C Pulse Rate 55 L 57 L 58 L Respiratory Rate 20 18 Blood Pressure 128/69 Pulse Oximetry 95 94 Oxygen Delivery Room Air Fraction of Inspired Oxygen 07/04/25 00:00 07/04/25 00:00 07/04/25 02:00 Temperature Pulse Rate 56 L 52 L Respiratory Rate Blood Pressure Pulse Oximetry Oxygen Delivery Room Air Fraction of Inspired Oxygen 07/04/25 04:00 07/04/25 04:00 07/04/25 04:00 Temperature 36.6 C Pulse Rate 49 L 55 L Respiratory Rate 16 Blood Pressure 133/72 Pulse Oximetry 93 Oxygen Delivery Room Air Fraction of Inspired Oxygen 07/04/25 06:00 07/04/25 08:00 Temperature 36.3 C L Pulse Rate 48 L 57 L Respiratory Rate 18 Blood Pressure 143/70 H Pulse Oximetry 97 Oxygen Delivery Fraction of Inspired Oxygen Intake/Output Intake/Output: Intake & Output 07/01/25 07/02/25 07/03/25 07/04/25 23:59 23:59 23:59 23:59 Intake Total 609.1 2462.2 1262 Output Total 500 Balance 609.1 1962.2 1262 Meds/Results Medications: Active Medications Generic Name Dose Route Start Last Admin Trade Name Freq PRN Reason Stop Dose Admin Acetaminophen 650 mg 07/02/25 13:44 07/03/25 21:05 Acetaminophen 325 Mg Tablet PO 650 mg Q4H PRN Administration Mild Pain (1-3) or Fever Albuterol 2 puff 07/03/25 08:23 Albuterol Sulfate (*Sp) Aerosol 1 Puff INHALATION Q6HRT PRN Shortness Of Breath Aspirin 81 mg 07/03/25 08:00 07/04/25 09:30 Aspirin 81 Mg Chewable Tablet PO 81 mg DAILY@0800 SHERRY Administration Atorvastatin Calcium 20 mg 07/02/25 21:00 07/03/25 21:05 Atorvastatin 20 Mg Tablet PO 20 mg QHS SHERRY Administration Cyclobenzaprine HCl 5 mg 07/02/25 18:19 07/02/25 18:46 Cyclobenzaprine Hcl 5 Mg Tablet PO 5 mg Q8H PRN Administration Muscle Spasm Diphenhydramine HCl 50 mg 07/04/25 14:00 Diphenhydramine Hcl Inj 50 Mg/Ml Vial IV PUSH 07/04/25 14:01 ONCE ONE Docusate Sodium 100 mg 07/02/25 17:00 07/04/25 09:30 Docusate Sodium 100 Mg Capsule PO 100 mg BID SHERRY Administration Duloxetine HCl 60 mg 07/03/25 09:00 07/04/25 09:30 Duloxetine Hcl 60 Mg Capsule.Dr PO 60 mg DAILY SHERRY Administration Fluticasone Propionate 2 spray 07/03/25 09:50 07/04/25 09:30 Fluticasone Propionate 0.05% Na Spr 16 Gm Btl (*Bkc) NASAL 2 spray QAM SHERRY Administration Heparin Sodium (Porcine) 4,000 units 07/02/25 10:16 07/02/25 16:45 Heparin Sodium 5,000 Units/Ml Vial IV PUSH 4,000 units PRN PRN Administration aPTT less than 55 seconds Heparin Sodium (Porcine) 2,500 units 07/02/25 10:16 Heparin Sodium 5,000 Units/Ml Vial IV PUSH PRN PRN aPTT 55 - 70 seconds Hydromorphone HCl 0.5 mg 07/02/25 13:01 07/03/25 09:12 Hydromorphone Hcl Inj (*Crx) 1 Mg/Ml Syr IV PUSH 0.5 mg Q4H PRN Administration Pain Rated 7-10 Ceftriaxone Sodium 1 gm/ 50 mls @ 100 mls/hr 07/03/25 11:00 07/03/25 11:32 Sodium Chloride IVPB 100 mls/hr Q24H SHERRY Administration Heparin Sodium/Dextrose 25,000 units in 250 mls @ 10 mls/hr 07/02/25 10:20 07/04/25 05:52 Heparin Sodium/D5w 100 Units/Ml IV CONT 1,000 units/hr .Q24H SHERRY 10 mls/hr Protocol Titration 1,000 UNITS/HR Sodium Chloride 1,000 mls @ 75 mls/hr 07/02/25 19:45 07/04/25 03:14 Normal Saline Iv IV CONT 75 mls/hr .[id number] SHERRY Administration Lisinopril 40 mg 07/02/25 21:00 07/04/25 09:30 Lisinopril 20 Mg Tablet PO 40 mg Q12HR SHERRY Administration Loratadine 10 mg 07/02/25 18:49 07/03/25 09:11 Loratadine 10 Mg Tablet PO 10 mg QAM PRN Administration allergy symptoms Metoprolol Succinate 100 mg 07/02/25 21:00 07/03/25 21:04 Metoprolol Succinate Ext Rel 100 Mg Tabcr PO 100 mg HS SHERRY Administration Nitroglycerin 0.4 mg 07/02/25 13:44 07/02/25 17:53 Nitroglycerin Sl 0.4 Mg Tablet SUBLINGUAL 0.4 mg Q5MIN PRN Administration Chest Pain Nitroglycerin 0.5 inch 07/02/25 18:32 07/04/25 05:56 Nitroglycerin Ointment 1 Inch Dose TRANSDERM 0.5 inch Q6HR SHERRY Administration Perflutren Lipid Microsphere 0 ml 07/02/25 13:44 Perflutren Lipid Microspheres 1.5 Ml Vial Diluted To 10 Ml Total Volume IV PUSH 07/05/25 13:46 ONCE PRN adequate visualization Protocol Prednisone 60 mg 07/04/25 14:00 Prednisone 20 Mg Tablet PO 07/04/25 14:01 ONCE ONE Radiology Results: ITS Impressions Chest X-Ray 07/02/25 08:23 IMPRESSION: 1. No acute cardiopulmonary findings given portable technique. Abdomen/Pelvis CT 07/02/25 15:26 IMPRESSION: Right-sided obstructive uropathy. Incidental findings detailed above Pulmonary Perfusion Imaging 07/03/25 09:55 IMPRESSION: 1. Low probability for pulmonary embolism. Renal Ultrasound 07/03/25 15:16 Impression: Bilateral renal calculi, no hydronephrosis identified Chest CTA 07/04/25 08:37 IMPRESSION: 1. No pulmonary embolus. Labs 07/04/25 05:11 07/04/25 05:11 Labs: Laboratory Results - last 24 hr 07/03/25 07/04/25 13:21 05:11 WBC 16.2 H RBC 4.26 Hgb 11.7 L Hct 36.8 L MCV 86.4 MCH 27.5 MCHC 31.8 L RDW 13.7 Plt Count 202 MPV 10.2 Immature Gran % (Auto) 0.7 H Neut % (Auto) 90.0 H Lymph % (Auto) 6.7 L [place] % (Auto) 2.5 L Eos % (Auto) 0.0 Baso % (Auto) 0.1 L Lymph # (Auto) 1.09 [place] # (Auto) 0.4 Eos # (Auto) 0.0 Baso # (Auto) 0.0 Abs Immat Gran (auto) 0.12 H Absolute Neuts (auto) 14.6 H Absolute Nucleated RBC 0.000 Nucleated RBC % 0.0 APTT 84.2 H 81.2 H Sodium 135 L Potassium 3.7 Chloride 106 Carbon Dioxide 25 Anion Gap 4 BUN 22 H Creatinine 0.68 L Estim Creat Clear Calc 73 Estimated GFR > 60 Glucose 156 H Calcium 8.5 Magnesium 1.8 Total Bilirubin 0.4 AST 52 H ALT 22 Alkaline Phosphatase 57 Total Protein 5.8 L Albumin 3.2 L ASA Classification/Sedation ASA Classification/Sedation ASA Class: III Emergent: No Risks: Risks, benefits and alternatives explained and patient/family accepted plan for sedation. Patient re-evaluated immediately prior to sedation.
--- NOTE | 2025-07-04 11:03 | WPDHPUPDATE1 ---
History and Physical Update Update Date/Time: 07/04/25 11:03 History and Physical has been reviewed, including an updated exam of the patient. There are NO changes in the patient's condition. Risks, benefits, and alternatives have been discussed and questions answered. Patient agrees to proceed with procedure.
[2025-07-04] MEDS: cefTRIAXone 1 GM in SODIUM CHLORIDE 0.9% IV 50 ML 100 ML IVPB (11:15)
--- NOTE | 2025-07-04 12:09 | PM.IMPN ---
Progress Note: A&P Assessment and Plan (1) Non-ST elevation CA (NSTEMI): Code(s): I21.4 - Non-ST elevation (NSTEMI) myocardial infarction Status: Acute (2) COVID: Code(s): U07.1 - COVID-19 Status: Acute (3) Acute UTI: Code(s): N39.0 - Urinary tract infection, site not specified Status: Acute (4) Shortness of breath: Code(s): R06.02 - Shortness of breath Status: Acute (5) Anxiety: Code(s): F41.9 - Anxiety disorder, unspecified Status: Acute (6) Essential (primary) hypertension: Code(s): I10 - Essential (primary) hypertension Status: Acute (7) Mixed hyperlipidemia: Code(s): E78.2 - Mixed hyperlipidemia Status: Acute (8) Iron deficiency anemia, unspecified: Onset Date: ~04/06/24 Qualifiers: Iron deficiency anemia type: chronic blood loss Qualified Code(s): D50.0 - Iron deficiency anemia secondary to blood loss (chronic) Code(s): D50.9 - Iron deficiency anemia, unspecified Status: Acute Plan 70-year-old female with past medical history of iron-deficiency anemia, anxiety, low back pain, vertigo presents the hospital on day 6 of COVID with chest pain. Patient describes it as chest burning radiates up into the shoulders and neck. She states that this started in the morning. She also complains of lower back pain. She denies nausea or vomiting. She also complains of cough and congestion. She states that she does not have any cardiac history. Patient denies calf pain. Patient states that her breathing is improved today compared to where it was 2 days ago. She believes that her COVID is getting better. CBC within normal limits, D-dimer of 0.64, BUN of 19, glucose of 119, troponins of 0.077 followed by 4.260, BNP of 116, UA cloudy with positive nitrates 3+ leukocyte esterase 3-5 rbc's in over 100 wbc's. Patient was started on Rocephin and a heparin drip will be admitted to IMU with cardiology consult. Patient has allergy to contrast dye of anaphylaxis, pretreatment for contrast was started in the emergency room. V/Q scan came back with low probability for PE. Plan for CTA after pretreatment. CTA came back negative for PE. Non ST elevation CA does have family history of premature coronary artery disease. No smoking. EKG with no significant change. Plan for heart catheterization today COVID infection stable UTI on Rocephin. Urinalysis with more than [address] abdomen pelvis with right-sided obstructive uropathy. With mild right hydronephrosis due to calculus at the junction of renal pelvis and proximal ureter. Consulted Urology Left kidney mid pole partially calcified lesion ultrasound recommended. Repeat ultrasound with no hydronephrosis. Anxiety disorder Hypertension Hyperlipidemia Iron deficiency anemia DVT prophylaxis on heparin drip Code status DNR Subjective Date/time seen: 07/04/25 12:09 Interval history: No overnight events. CTA discussed with the patient. Going for heart catheterization today Review of Systems Review of Systems: All systems reviewed & are unremarkable except as noted in HPI and below Exam Narrative: General: well appearing, appears stated age. No distress HEENT: normocephalic, atraumatic. Mucous membranes moist. EOMI, PERRLA Respiratory: clear to auscultation bilaterally. No rales/rhonic/wheezes. Cardiovascular: Regular rate and rhythm, normal S1-S2 upon ascultation. Abdomen: Soft, round, no pulsatile masses, nondistended and nontender. Extremities: No cyanosis, clubbing, or edema present. Pulses are palpable 2/2. Active ROM to all four extremities. Neuro: Alert and oriented x 4. PERRLA. Cranial nerves 2-12 intact without focal deficit. Skin: Warm, dry, and intact, without rash, erythema, or lesion. Psych: pleasant, cooperative, normal speech, normal affect, no hallucinations, no dysarthia Objective Data Vital Signs Vital Signs: Vital Signs - 24 hr 07/03/25 14:00 07/03/25 16:00 07/03/25 16:00 Temperature 98.1 F Pulse Rate 68 66 61 Respiratory Rate 18 Blood Pressure 125/66 Pulse Oximetry 92 Oxygen Delivery Fraction of Inspired Oxygen 07/03/25 16:00 07/03/25 18:00 07/03/25 20:00 Temperature Pulse Rate 70 Respiratory Rate Blood Pressure Pulse Oximetry Oxygen Delivery Room Air Room Air Fraction of Inspired Oxygen 07/03/25 20:00 07/03/25 20:00 07/03/25 21:04 Temperature 98.7 F Pulse Rate 77 67 75 Respiratory Rate 16 Blood Pressure 132/66 Pulse Oximetry 93 Oxygen Delivery Fraction of Inspired Oxygen 07/03/25 21:55 07/03/25 22:00 07/04/25 00:00 Temperature 97.6 F Pulse Rate 55 L 57 L 58 L Respiratory Rate 20 18 Blood Pressure 128/69 Pulse Oximetry 95 94 Oxygen Delivery Room Air Fraction of Inspired Oxygen 21 07/04/25 00:00 07/04/25 00:00 07/04/25 02:00 Temperature Pulse Rate 56 L 52 L Respiratory Rate Blood Pressure Pulse Oximetry Oxygen Delivery Room Air Fraction of Inspired Oxygen 07/04/25 04:00 07/04/25 04:00 07/04/25 04:00 Temperature 97.9 F Pulse Rate 49 L 55 L Respiratory Rate 16 Blood Pressure 133/72 Pulse Oximetry 93 Oxygen Delivery Room Air Fraction of Inspired Oxygen 07/04/25 06:00 07/04/25 08:00 07/04/25 08:00 Temperature 97.4 F L Pulse Rate 48 L 57 L Respiratory Rate 18 Blood Pressure 143/70 H Pulse Oximetry 97 Oxygen Delivery Room Air Fraction of Inspired Oxygen 07/04/25 08:00 07/04/25 10:00 07/04/25 12:00 Temperature 97.7 F Pulse Rate 53 L 50 L 51 L Respiratory Rate 16 Blood Pressure 132/65 Pulse Oximetry 97 Oxygen Delivery Fraction of Inspired Oxygen Intake/Output Intake/Output: Intake & Output 07/01/25 07/02/25 07/03/25 07/04/25 23:59 23:59 23:59 23:59 Intake Total 609.1 2512.2 1262 Output Total 500 Balance 609.1 2012.2 1262 Meds/Results Medications: Active Medications Generic Name Dose Route Start Last Admin Trade Name Freq PRN Reason Stop Dose Admin Acetaminophen 650 mg 07/02/25 13:44 07/03/25 21:05 Acetaminophen 325 Mg Tablet PO 650 mg Q4H PRN Administration Mild Pain (1-3) or Fever Albuterol 2 puff 07/03/25 08:23 Albuterol Sulfate (*Sp) Aerosol 1 Puff INHALATION Q6HRT PRN Shortness Of Breath Aspirin 81 mg 07/03/25 08:00 07/04/25 09:30 Aspirin 81 Mg Chewable Tablet PO 81 mg DAILY@0800 SHERRY Administration Atorvastatin Calcium 20 mg 07/02/25 21:00 07/03/25 21:05 Atorvastatin 20 Mg Tablet PO 20 mg QHS SHERRY Administration Cyclobenzaprine HCl 5 mg 07/02/25 18:19 07/02/25 18:46 Cyclobenzaprine Hcl 5 Mg Tablet PO 5 mg Q8H PRN Administration Muscle Spasm Diphenhydramine HCl 50 mg 07/04/25 14:00 Diphenhydramine Hcl Inj 50 Mg/Ml Vial IV PUSH 07/04/25 14:01 ONCE ONE Docusate Sodium 100 mg 07/02/25 17:00 07/04/25 09:30 Docusate Sodium 100 Mg Capsule PO 100 mg BID SHERRY Administration Duloxetine HCl 60 mg 07/03/25 09:00 07/04/25 09:30 Duloxetine Hcl 60 Mg Capsule. PO 60 mg DAILY SHERRY Administration Fluticasone Propionate 2 spray 07/03/25 09:50 07/04/25 09:30 Fluticasone Propionate 0.05% Na Spr 16 Gm Btl (*Bkc) NASAL 2 spray QAM SHERRY Administration Heparin Sodium (Porcine) 4,000 units 07/02/25 10:16 07/02/25 16:45 Heparin Sodium 5,000 Units/Ml Vial IV PUSH 4,000 units PRN PRN Administration aPTT less than 55 seconds Heparin Sodium (Porcine) 2,500 units 07/02/25 10:16 Heparin Sodium 5,000 Units/Ml Vial IV PUSH PRN PRN aPTT 55 - 70 seconds Hydromorphone HCl 0.5 mg 07/02/25 13:01 07/03/25 09:12 Hydromorphone Hcl Inj (*Crx) 1 Mg/Ml Syr IV PUSH 0.5 mg Q4H PRN Administration Pain Rated 7-10 Ceftriaxone Sodium 1 gm/ 50 mls @ 100 mls/hr 07/03/25 11:00 07/04/25 11:15 Sodium Chloride IVPB 100 mls/hr Q24H SHERRY Administration Heparin Sodium/Dextrose 25,000 units in 250 mls @ 10 mls/hr 07/02/25 10:20 07/04/25 05:52 Heparin Sodium/D5w 100 Units/Ml IV CONT 1,000 units/hr .Q24H SHERRY 10 mls/hr Protocol Titration 1,000 UNITS/HR Sodium Chloride 1,000 mls @ 75 mls/hr 07/02/25 19:45 07/04/25 03:14 Normal Saline Iv IV CONT 75 mls/hr .[id number] SHERRY Administration Lisinopril 40 mg 07/02/25 21:00 07/04/25 09:30 Lisinopril 20 Mg Tablet PO 40 mg Q12HR SHERRY Administration Loratadine 10 mg 07/02/25 18:49 07/03/25 09:11 Loratadine 10 Mg Tablet PO 10 mg QAM PRN Administration allergy symptoms Metoprolol Succinate 100 mg 07/02/25 21:00 07/03/25 21:04 Metoprolol Succinate Ext Rel 100 Mg Tabcr PO 100 mg HS SHERRY Administration Nitroglycerin 0.4 mg 07/02/25 13:44 07/02/25 17:53 Nitroglycerin Sl 0.4 Mg Tablet SUBLINGUAL 0.4 mg Q5MIN PRN Administration Chest Pain Nitroglycerin 0.5 inch 07/02/25 18:32 07/04/25 11:15 Nitroglycerin Ointment 1 Inch Dose TRANSDERM 0.5 inch Q6HR SHERRY Administration Perflutren Lipid Microsphere 0 ml 07/02/25 13:44 Perflutren Lipid Microspheres 1.5 Ml Vial Diluted To 10 Ml Total Volume IV PUSH 07/05/25 13:46 ONCE PRN adequate visualization Protocol Prednisone 60 mg 07/04/25 14:00 Prednisone 20 Mg Tablet PO 07/04/25 14:01 ONCE ONE Radiology Results: ITS Impressions Chest X-Ray 07/02/25 08:23 IMPRESSION: 1. No acute cardiopulmonary findings given portable technique. Abdomen/Pelvis CT 07/02/25 15:26 IMPRESSION: Right-sided obstructive uropathy. Incidental findings detailed above Pulmonary Perfusion Imaging 07/03/25 09:55 IMPRESSION: 1. Low probability for pulmonary embolism. Renal Ultrasound 07/03/25 15:16 Impression: Bilateral renal calculi, no hydronephrosis identified Chest CTA 07/04/25 08:37 IMPRESSION: 1. No pulmonary embolus. Labs Labs: Laboratory Results - last 24 hr 07/03/25 07/04/25 13:21 05:11 WBC 16.2 H RBC 4.26 Hgb 11.7 L Hct 36.8 L MCV 86.4 MCH 27.5 MCHC 31.8 L RDW 13.7 Plt Count 202 MPV 10.2 Immature Gran % (Auto) 0.7 H Neut % (Auto) 90.0 H Lymph % (Auto) 6.7 L Douglas % (Auto) 2.5 L Eos % (Auto) 0.0 Baso % (Auto) 0.1 L Lymph # (Auto) 1.09 Douglas # (Auto) 0.4 Eos # (Auto) 0.0 Baso # (Auto) 0.0 Abs Immat Gran (auto) 0.12 H Absolute Neuts (auto) 14.6 H Absolute Nucleated RBC 0.000 Nucleated RBC % 0.0 APTT 84.2 H 81.2 H Sodium 135 L Potassium 3.7 Chloride 106 Carbon Dioxide 25 Anion Gap 4 BUN 22 H Creatinine 0.68 L Estim Creat Clear Calc 73 Estimated GFR > 60 Glucose 156 H Calcium 8.5 Magnesium 1.8 Total Bilirubin 0.4 AST 52 H ALT 22 Alkaline Phosphatase 57 Total Protein 5.8 L Albumin 3.2 L
--- NOTE | 2025-07-04 13:46 | ECHO_ITS ---
Patient Info Name: Pallavi Kenney Age: 70 years : 1955 Gender: Female Ht: 65 in Wt: 188 lbs BSA: 2.01 m2 HR: 55 bpm BP: 133 / 72 mmHg Technical Quality: Fair, Good Exam Date: 07/04/2025 10:09 AM Patient Status: I Admit Date: 07/03/2025 Exam Type: CA echo doppler color flow Complete two-dimensional, color flow and Doppler transthoracic echocardiogram is performed. Staff Referring Physician: Miles Chau Service Coordinator: Donna Ricks Attending Provider: Miles Chau Summary 1. Complete two-dimensional, color flow and Doppler transthoracic echocardiogram is performed. 2. There is normal biventricular size and systolic function. 3. There are no significant valvular abnormalities. Left Ventricle The left ventricle normal in size and systolic function. The left ventricular ejection fraction is visually estimated to be 60-65%. Right Ventricle The right ventricle is normal in size and systolic function. Left Atria The left atrium is normal size. Right Atria The right atrium is normal size. Atrial Septum The atrial septum is normal. Aortic Valve The aortic valve is trileaflet and sclerotic. There is no aortic stenosis. There is trace aortic regurgitation. Pulmonic Valve The pulmonic valve is not well visualized. There is trace pulmonic valve regurgitation. Mitral Valve The mitral valve is normal. There is trace mitral regurgitation. Tricuspid Valve The tricuspid valve is normal. There is trace tricuspid regurgitation. Pericardium/Pleural Pericardium is normal in appearance with no evidence for significant pericardial effusion. Inferior Vena Cava Dilated inferior vena cava with >50% collapse upon inspiration consistent with elevated right atrial pressure, 8 mmHg. Aorta The aortic root at the level of the sinus of Valsalva measures 3.2 cm in diameter. Left Ventricular Outflow Tract Name Value Normal LVOT 2D LVOT Diameter 2.0 cm LVOT Doppler LVOT Peak Velocity 90 cm/s LVOT Peak Gradient 3 mmHg LVOT Mean Gradient 2 mmHg LVOT VTI 20 cm LVOT VTI/AV VTI Ratio 0.7 LVOT Stroke Volume 63 ml LVOT CO 12.8 l/min LVOT CI 6.4 l/min/m2 Pulmonic Valve Name Value Normal PV Doppler PV Peak Velocity 62 cm/s PV Peak Gradient 2 mmHg Mitral Valve Name Value Normal MV Diastolic Function MV E Peak Velocity 61 cm/s MV A Peak Velocity 77 cm/s MV E/A 0.8 MV Decel Time (PW) 286 ms MV Annular TDI MV E/e' (Septal) 7.6 MV E/e' (Lateral) 6.1 MV E/e' (Average) 6.9 Tricuspid Valve Name Value Normal Estimated PAP/RSVP RA Pressure 8 mmHg <=5 TV Annular TDI TV Lateral Rosey s' Velocity 11.7 cm/s >=9.5 Aorta Name Value Normal Ascending Aorta Ao Root Diameter (MM) 3.1 cm Ao Root Diam Index (MM) 1.6 cm/m2 Aortic Valve Name Value Normal AV Doppler AV Peak Velocity 122 cm/s AV Peak Gradient 6 mmHg AV Mean Gradient 4 mmHg AV VTI 30 cm AV Area (Cont Eq VTI) 2.1 cm2 >=3.0 AV Area (Cont Eq Gasper) 2.3 cm2 AV DI (Gasper) 0.74 AV Regurgitation 2D LVOT Area 3.1 cm2 Ventricles Name Value Normal LV Dimensions 2D/MM IVS Diastolic Thickness (2D) 1.2 cm 0.6-1.0 LVID Diastole (2D) 5.1 cm 3.8-5.2 LVIW Diastolic Thickness (2D) 0.9 cm 0.6-0.9 LVID Systole (2D) 3.9 cm 2.2-3.5 LVOT Diameter 2.0 cm LV Mass (2D Cubed) 196.58 g 67.00-162.00 LV Mass Index (2D Cubed) 98 g/m2 43-95 Relative Wall Thickness (2D) 0.35 <=0.42 LV Fractional Shortening/Ejection Fraction 2D/MM LV Fractional Shortening (2D) 23 % 27-45 LV EF (2D Teichholz) 46 % LV Diastolic Volume (4C MOD) 140 ml LV EF (4C MOD) 68 % LV Diastolic Volume (2C MOD) 69 ml LV EF (2C MOD) 59 % LV Diastolic Volume (BP MOD) 103 ml 46-106 LV Diastolic Volume Index (BP MOD) 51 ml/m2 29-61 LV Systolic Volume (BP MOD) 36 ml 14-42 LV Systolic Volume Index (BP MOD) 18 ml/m2 8-24 LV EF (BP MOD) 65 % 54-74 LV Diastolic Length (4C) 7.7 cm LV Systolic Length (4C) 6.2 cm LV Stroke Volume (4C MOD) 96 ml RV Dimensions 2D/MM RVID Diastole (2D) 4.0 cm 2.1-3.5 Atria Name Value Normal LA Dimensions LA Dimension (MM) 4.3 cm 2.7-3.8 LA Volume (4C A-L) 42 ml LA Volume (BP A-L) 59 ml RA Dimensions RA Systolic Major [place] Length (4C) 4.7 cm 2.2-2.8 RA Area (4C) 13.9 cm2 <=18.0 Report Signatures
--- NOTE | 2025-07-04 15:07 | P.CONUR_ITS ---
Assessment and Plan Assessment and plan (1) Bilateral renal stones: Code(s): N20.0 - Calculus of kidney Status: Acute Assessment and Plan: - No significant hydro on DENNIS, renal function stable and pt without Right flank pain or stone symptoms - Leukocytosis likely 2/2 to steroid use; pt currently afebrile - No acute intervention recommended at this time - Will plan to see pt in outpatient setting to discuss definitive management of Right nephrolithiasis. Message placed to Dr. Rush to arrange. - Discussed with pt that Left midback pain is unlikely to be related to stone and favor MSK source. Left punctate renal stone nonobstructing and may be followed with surveillance on an outpatient basis. (2) Acute UTI: Code(s): N39.0 - Urinary tract infection, site not specified Status: Acute Assessment and Plan: - UA suggestive of UTI, UCx currently pending - Continue broad spectrum Abx; once resulted tailor to susceptibilities (3) Urinary incontinence, mixed: Code(s): N39.46 - Mixed incontinence Status: Chronic Assessment and Plan: - Chronic INDIA and OAB symptoms refractory to medical management - Previously following with Dr. Giles but averse to traveling for appointments; has further follow up at [place] location 07/21/25 Urology Consult Note HPI Date Seen: 07/04/25 Requesting Physician: Miles Chau MD Primary Care Provider: Erick Nails MD Consult Narrative Narrative: Pallavi Kenney is a 70 year old female with PMHx of iron-deficiency anemia, anxiety, low back pain, vertigo and nephrolithiasis who presented to the ED with chest pain and recent positive COVID test found to have punctate Left real stone and multiple large Right renal calculi for whom urology is consulted for nephrolithiasis. On presentation pt UA concerning for UTI and CT A/P was obtained for Hx of stones in the setting of UTI with findings as described above. Initially CT A/P did describe mild Right hydro, however, subsequent DENNIS the next day did not describe any hydro. Pt states that she currently has some achy Left midback pain which has been ongoing for several weeks. Denies Right flank pain, gross hematuria, dysuria. Pt does report long standing frequency, urgency and INDIA which she finds bothersome. Review of Systems 2 Constitutional: Constitutional: Reports fatigue ENT: Reports Normal hearing present Respiratory: Respiratory: Denies dyspnea Gastrointestinal: Gastrointestinal: Denies abdominal pain, Denies nausea and Denies vomiting Genitourinary: Genitourinary: Denies hematuria, Reports nocturia, Denies dysuria, Reports urinary incontinence and Reports urinary urgency Musculoskeletal: Musculoskeletal: Reports back pain Neurologic: Denies Abnormal speech present [facility] Past Medical History Medical History (Updated 07/04/25 @ 15:25 by Patito Bailey, [employer]) Left renal mass (~07/02/25) 2 x 2 cm lesion midpole left kidney on CT 07/02/2025.No renal mass on renal ultrasound 07/03/2025. Lower GI bleed Hematochezia Conjunctivitis Acute sinusitis Throat pain Chronic sinusitis BMI 31.0-31.9,adult Iron deficiency anemia, unspecified (~04/06/24) hemoglobin 12.3 on 02/20/2024. Hemoglobin 10.9 with iron 25 with 6% saturation and ferritin 7 on 04/06/2024. Hemoglobin 12.8 with iron 57 with 16% saturation and ferritin 13 on 10/15/2024. At low risk for fall Fatigue TSH normal at 1.68 hemoglobin 13.3 on 09/17/2023. Gross hematuria (~03/2023) Urinalysis with 3+ blood, 2+ protein, 3+ leukocytes, bacteria on 09/17/2023. Urinalysis with trace protein and 2+ blood with 3-10 RBCs on 10/15/2024. COVID-19 (03/12/23) 2nd episode starting 03/12/2023. Benign paroxysmal positional vertigo due to bilateral vestibular disorder (~2021) At moderate risk for fall (~09/12/22) patient fell twice within 1 year after tripping on dog and also stepping in a hole. COVID-19 (05/04/22) tested positive 05/05/2022. BMI 32.0-32.9,adult BMI 33.0-33.9,adult Obesity (BMI 30.0-34.9) Osteoarthritis of right knee Seasonal allergies Arthritis Mild peripheral edema Chronic pain of right knee X-ray on 11/07/2021 reveals moderate tricompartmental osteoarthritis with small effusion. PND (post-nasal drip) Otalgia of both ears Ear itching Allergic rhinitis Rhinorrhea Hypertrophy of both inferior nasal turbinates Nasal septal deviation Nasal obstruction Nasal congestion UTI (urinary tract infection) Overactive bladder Anxiety Low back pain with bilateral sciatica X-ray of the lumbar spine on 04/18/2023 reveals diffuse moderate multilevel degenerative disc disease and severe degenerative disc disease at L2-L3 and L3-L4 with severe facet arthropathy at L4-L5 and L5-S1 with anterior listhesis 8 mm L4 on L5 and retrolisthesis of 5 mm on L2-L3. Moderate scoliosis. (07/14/20) Acute non-recurrent maxillary sinusitis BMI 35.0-35.9,adult Colon cancer screening normal colonoscopy 03/17/2024 with internal hemorrhoids with no active bleeding. Fever blister Grieving Breast cancer screening by mammogram Normal mammogram 04/02/2022. Acute abdominal pain in right flank Acute bilateral low back pain without sciatica UTI (urinary tract infection), uncomplicated Surgical History Surgical History H/O lithotripsy History of hysterectomy Family History Family History Grandparent Asthma, Onset Age: 55 Acute myocardial infarction, Onset Age: 60 Family history of chronic obstructive pulmonary disease, Onset Age: 60 Diabetes mellitus Mother Family history of cardiovascular disease, Onset Age: 71 Family history of chronic obstructive pulmonary disease, Onset Age: 71 Father Asthma Hypertension Heart disease History of myocardial infarction Sibling COPD (chronic obstructive pulmonary disease) Social History Social History Smoking status: Never smoker Alcohol intake: never Substance use: never Substance use type: does not use Lack of Transportation: No Lack of Food: Never True Current Housing: I Have Housing Concerned About Future Housing: No Difficulty Paying Gas/Electric Bills: No Difficulty Paying for Meds: No Currently Unemployed: No Education: High School Diploma/GED Difficulty w/ Childcare or Family Care: No Living arrangements: with family Additional living arrangements comments: Adopting 4 children; Daughter and grand-daughter live near as well Occupation/Education: retired Additional occupation/education comments: 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 b.i.d. #180 tabs 06/10/24 07/02/25 Rx duloxetine 60 mg capsule,delayed 60 mg PO DAILY #90 ca ps 09/20/24 07/02/25 Rx release (Cymbalta) meloxicam 15 mg tablet 15 mg PO DAILY PRN pain #90 tabs 01/14/25 07/02/25 Rx metoprolol succinate 100 mg 100 mg PO . q.h.s. #90 tab s 01/14/25 07/02/25 Rx tablet,extended release 24 hr atorvastatin 20 mg tablet 20 mg PO QHS #90 tabs 07/02/25 Rx acetaminophen 500 mg capsule 1,000 mg (2 x 500 mg) PO Q6H PRN 06/26/25 07/02/25 Rx pain #30 caps ibuprofen 600 mg tablet 600 mg PO TID PRN pain #30 t abs 06/26/25 07/02/25 Rx Allergies Allergy/AdvReac Type Severity Reaction Status Date / Time Iodinated Contrast Media Allergy Swelling Verified 07/02/25 07:46 of Lip/Tongue/Throat oxycodone AdvReac Severe Agitated Verified 07/02/25 23:16 latex AdvReac Mild Hives Verified 07/02/25 07:46 Vital Signs Vital Signs - 24 hr 07/03/25 16:00 07/03/25 16:00 07/03/25 16:00 Temperature 98.1 F Pulse Rate 66 61 Respiratory Rate 18 Blood Pressure 125/66 Pulse Oximetry 92 Oxygen Delivery Room Air Fraction of Inspired Oxygen 07/03/25 18:00 07/03/25 20:00 07/03/25 20:00 Temperature 98.7 F Pulse Rate 70 77 Respiratory Rate 16 Blood Pressure 132/66 Pulse Oximetry 93 Oxygen Delivery Room Air Fraction of Inspired Oxygen 07/03/25 20:00 07/03/25 21:04 07/03/25 21:55 Temperature Pulse Rate 67 75 55 L Respiratory Rate 20 Blood Pressure Pulse Oximetry 95 Oxygen Delivery Room Air Fraction of Inspired Oxygen 21 07/03/25 22:00 07/04/25 00:00 07/04/25 00:00 Temperature 97.6 F Pulse Rate 57 L 58 L Respiratory Rate 18 Blood Pressure 128/69 Pulse Oximetry 94 Oxygen Delivery Room Air Fraction of Inspired Oxygen 07/04/25 00:00 07/04/25 02:00 07/04/25 04:00 Temperature Pulse Rate 56 L 52 L Respiratory Rate Blood Pressure Pulse Oximetry Oxygen Delivery Room Air Fraction of Inspired Oxygen 07/04/25 04:00 07/04/25 04:00 07/04/25 06:00 Temperature 97.9 F Pulse Rate 49 L 55 L 48 L Respiratory Rate 16 Blood Pressure 133/72 Pulse Oximetry 93 Oxygen Delivery Fraction of Inspired Oxygen 07/04/25 08:00 07/04/25 08:00 07/04/25 08:00 Temperature 97.4 F L Pulse Rate 57 L 53 L Respiratory Rate 18 Blood Pressure 143/70 H Pulse Oximetry 97 Oxygen Delivery Room Air Fraction of Inspired Oxygen 07/04/25 10:00 07/04/25 12:00 07/04/25 12:00 Temperature 97.7 F Pulse Rate 50 L 51 L 51 L Respiratory Rate 16 Blood Pressure 132/65 Pulse Oximetry 97 Oxygen Delivery Fraction of Inspired Oxygen 07/04/25 12:00 Temperature Pulse Rate Respiratory Rate Blood Pressure Pulse Oximetry Oxygen Delivery Room Air Fraction of Inspired Oxygen Exam 2 Const: General: comfortable and no acute distress Eyes: General: appearance normal, both eyes and all related structures Resp: Effort & Inspection: normal respiratory effort Neuro: Speech: normal speech Psych: Affect: normal affect Results Labs 07/04/25 05:11 07/04/25 05:11 Labs: Short CBC 07/04/25 Range/Units 05:11 WBC 16.2 H (4.5-10.0) K/mm3 Hgb 11.7 L (12.0-15.0) g/dL Hct 36.8 L (37.0-47.0) % Plt Count 202 (150-375) k/mm3 BMP 07/04/25 05:11 Sodium 135 L Potassium 3.7 Chloride 106 Carbon Dioxide 25 BUN 22 H Creatinine 0.68 L Glucose 156 H Calcium 8.5 Liver Function 07/04/25 Range/Units 05:11 Total Bilirubin 0.4 (0.2-1.3) mg/dL AST 52 H (14-36) U/L ALT 22 (6-35) U/L Alkaline Phosphatase 57 (38-126) U/L Albumin 3.2 L (3.5-5.1) g/dL
--- NOTE | 2025-07-04 15:17 | WPDCARDPROC ---
Cardiac Cath Procedure Note Date of procedure:: 07/04/25 Performing physician:: Julisa Kemp MD Indication:: CATHETERIZATION LABORATORY REPORT Procedure Date: 07/04/2025 Anesthesia: Versed and Fentanyl were ordered and given in my presence at 2:30 p.m., procedure ended at 3:04 p.m.. Supervision of nurse monitored moderate sedation with Versed and Fentanyl was provided for 34 minutes. Fentanyl: 100 mcg Versed: 1 mg Pre-op Diagnosis: NSTEMI COVID positive Post-op Diagnosis: NSTEMI Nonobstructive CAD Elevated LVEDP of 29 mm Hg COVID positive Procedure(s): Left heart catheterization with coronary angiography Ultrasound-guided right common femoral artery access Hemostasis of right common femoral artery with 6 [place] Angio-Seal Moderate sedation Access Site: Right radial artery Brief History and Clinical Indications: All risks, benefits and alternatives to left heart catheterization with or without percutaneous coronary intervention was discussed at length with the patient. Risk of complications including but not limited to bleeding, infection, arrhythmia, stroke, worsening kidney function, blood loss, groin hematoma, limb loss, emergency coronary artery bypass grafting, and even were discussed with the patient and all questions were answered. The patient understood and wished to proceed. Time out called, patient name, date of , medical record number, allergies, procedure performed, identify Manifest/Order Organizer Print Orders, patient and staff member concurred with accurate data, procedure carried on. Findings: LEFT HEART CATHETERIZATION FINDINGS: 1. Left main: The left main coronary artery is widely patent without any significant obstructive disease. 2. Left anterior descending: The LAD and the diagonal branches have no significant obstructive angiographic disease. 3. Left circumflex: The left circumflex artery has no significant obstructive disease. It gives off small OM branches. A small less than 2 mm OM branch has hazy appearance in the ostial to proximal vessel suggestive of thrombus versus calcium. This is the most likely culprit of patient's presentation. No intervention performed as this is a very small (less than 2 mm) and tortuous vessel. 4. Right coronary artery: The proximal RCA has 30% stenosis. The RCA is the dominant vessel. 5. Left ventricle: A. End-diastolic pressure 29 mmHg. B. LV gram deferred. C. No significant gradient across aortic valve on catheter pullback. 6. Opening AO pressure 155/98/120 5 mm Hg and closing AO pressure 162/78/111 mm Hg Description of Procedure: Informed consent signed and placed in the chart. Patient transferred to laborer vegetable farm room. Prepped and draped in usual sterile fashion. 2% lidocaine in right groin area. Micropuncture needle used to access right common femoral artery with Seldinger technique under fluoroscopic guidance. J wire advanced, micropuncture cannula placed. Right iliofemoral angiogram performed, access confirmed and micropuncture cannula exchanged for 6-FR sheath. ? 6 [place] JL4 diagnostic catheter engaged Left Main Coronary Artery. Six [place] JR4 diagnostic catheter engaged Right Coronary Artery. Multiple orthogonal angiogram obtained and reviewed 6 [place] JR4 diagnostic catheter crossed aortic valve to obtain LVEDP, LV angiogram deferred. Hemostasis was achieved by 6 [place] Angio-Seal Assessment: -NSTEMI-most likely secondary to plaque rupture in the small (less than 2 mm) and tortuous OM branch of the LCX. No intervention performed as this is a small less than 2 mm vessel, appears tortuous, supplies only a small myocardial territory, has TAN 3 flow, and patient is without chest pain. -Nonobstructive CAD-30% stenosis in proximal RCA -Elevated LVEDP Post Operative Condition: Stable No significant blood loss Disposition: Floor/Home Plan: The patient will be monitored in the recovery area. DAPT for 1 year followed by ASA indefinitely. Continue aggressive medical therapy and risk factor modification. Check renal function in a.m. IV fluids normal saline at 100 mL/hour for 500 mL. Bedrest for 2 hours. TTE. Julisa Kemp MD, MS, FACC, [facility] Interventional Cardiology
[2025-07-04] MEDS: METOPROLOL SUCCINATE EXT REL 100 MG TABCR PO (21:16)
[2025-07-04] MEDS: ATORVASTATIN 20 MG TABLET PO (21:16)
[2025-07-05] VITALS (10 sets, daily range): BP systolic 136–151; BP diastolic 73–76; PULSE 45–62; RESP 18; TEMP 36.4–37.1; O2SAT 95–97
[2025-07-05 04:23] LABS: Hematocrit 37.4 % (37.0-47.0); Hemoglobin 12.1 g/dL (12.0-15.0); Immature Granulocyte Percent A 1.2 % (0-0.5); Lymphocytes Absolute Auto 0.88 K/mm3 (0.9-3.2); Mean Corpuscular HGB Conc 32.4 g/dl (32-36); Mean Corpuscular Hemoglobin 28.2 pg (26-34); Mean Corpuscular Volume 87.2 fl (80-100); Nucleated Red Blood Cells Absolute Auto 0.000 K/mm3 (0.0-0.012); Nucleated Red Blood Cells Perc 0.0 % (0.0-0.2); Platelet Count Result 198 k/mm3 (150-375); Red Blood Count 4.29 M/mm3 (4.2-5.4); White Blood Count 11.3 K/mm3 (4.5-10.0)
[2025-07-05 04:48] LABS: Alanine Aminotransferase 20 U/L (6-35); Albumin Level 3.2 g/dL (3.5-5.1); Alkaline Phosphatase 52 U/L (38-126); Anion Gap 4 mmol/L (4-12); Aspartate Amino Transferase 33 U/L (14-36); Bilirubin,Total 0.4 mg/dL (0.2-1.3); Blood Urea Nitrogen 24 mg/dL (7-17); Calcium 8.5 mg/dL (8.4-10.2); Carbon Dioxide 27 mmol/L (22-30); Chloride 105 mmol/L (98-107); Estimated CRCL calculation 65 ml/min; Estimated Glomerular Filt Rate > 60; Glucose 125 mg/dL (65-110); Magnesium 2.0 mg/dL (1.6-2.3); Potassium 3.8 mmol/L (3.4-5.0); Sodium 136 mmol/L (137-145); Total Protein 5.7 g/dL (6.3-8.2)
[2025-07-05] MEDS: ASPIRIN 81 MG CHEWABLE TABLET PO (09:43)
[2025-07-05] MEDS: CLOPIDOGREL BISULFATE 75 MG TABLET PO (09:43)
[2025-07-05] MEDS: DULoxetine HCL 60 MG CAPSULE.DR PO (09:43)
[2025-07-05] MEDS: FLUTICASONE PROPIONATE 0.05% NA SPR 16 GM BTL (*BKC) 2 SPRAY NASAL (09:43)
[2025-07-05] MEDS: cefTRIAXone 1 GM in SODIUM CHLORIDE 0.9% IV 50 ML 100 ML IVPB (11:00)
--- NOTE | 2025-07-05 13:00 | P.DS_ITS ---
DS: Admitting Diagnosis Discharge Date 07/05/2025 Admitting Diagnosis Chest pain DS: Discharge Diagnosis Discharge Diagnosis (1) Non-ST elevation [place] (NSTEMI): Code(s): I21.4 - Non-ST elevation (NSTEMI) myocardial infarction Status: Acute (2) COVID: Code(s): U07.1 - COVID-19 Status: Acute (3) Acute UTI: Code(s): N39.0 - Urinary tract infection, site not specified Status: Acute (4) Shortness of breath: Code(s): R06.02 - Shortness of breath Status: Acute (5) Anxiety: Code(s): F41.9 - Anxiety disorder, unspecified Status: Acute (6) Essential (primary) hypertension: Code(s): I10 - Essential (primary) hypertension Status: Acute (7) Mixed hyperlipidemia: Code(s): E78.2 - Mixed hyperlipidemia Status: Acute (8) Iron deficiency anemia, unspecified: Onset Date: ~04/06/24 Qualifiers: Iron deficiency anemia type: chronic blood loss Qualified Code(s): D50.0 - Iron deficiency anemia secondary to blood loss (chronic) Code(s): D50.9 - Iron deficiency anemia, unspecified Status: Acute DS: Summary Hospital Course Hospital Course: 70-year-old female with past medical history of iron-deficiency anemia, anxiety, low back pain, vertigo presents the hospital on day 6 of COVID with chest pain. Patient describes it as chest burning radiates up into the shoulders and neck. She states that this started in the morning. She also complains of lower back pain. She denies nausea or vomiting. She also complains of cough and congestion. She states that she does not have any cardiac history. Patient denies calf pain. Patient states that her breathing is improved today compared to where it was 2 days ago. She believes that her COVID is getting better. CBC within normal limits, D-dimer of 0.64, BUN of 19, glucose of 119, troponins of 0.077 followed by 4.260, BNP of 116, UA cloudy with positive nitrates 3+ leukocyte esterase 3-5 rbc's in over 100 wbc's. Patient was started on Rocephin and a heparin drip will be admitted to IMU with cardiology consult. Patient has allergy to contrast dye of anaphylaxis, pretreatment for contrast was started in the emergency room. V/Q scan came back with low probability for PE. She further underwent CTA which also came back negative for PE. Non ST elevation [place] does have family history of premature coronary artery disease. No smoking. EKG with no significant change. Status post left heart catheterization 07/04/2025: Left circumflex gives of a small OM branches was small less than 2 mm OM branch has AG appearance in the ostial to proximal vessel suggestive of thrombus versus calcium. Most likely culprit for patient's presentation. Since very small and tortuous vessel no intervention was performed. RCA with 30% stenosis. Planned for DA PT for 1 year followed by aspirin indefinitely. LDL was 96 will increase atorvastatin to 40 mg at bedtime Echo with EF 60-65% no significant valvular abnormalities COVID infection stable UTI on Rocephin. Urinalysis with more than [address] abdomen pelvis with right-sided obstructive uropathy. With mild right hydronephrosis due to calculus at the junction of renal pelvis and proximal ureter. Consulted Urology. Repeat ultrasound with no hydronephrosis. She will need to follow up with Urology as outpatient basis for stone management. Left kidney mid pole partially calcified lesion ultrasound recommended. Repeat ultrasound with no hydronephrosis. Anxiety disorder Hypertension Hyperlipidemia Iron deficiency anemia DVT prophylaxis treated with heparin drip Code status DNR Time Spent with Patient Time attestation: Total time spent providing and/or coordinating discharge services: 40 minutes Exam Narrative: General: well appearing, appears stated age. No distress HEENT: normocephalic, atraumatic. Mucous membranes moist. EOMI, PERRLA Respiratory: clear to auscultation bilaterally. No rales/rhonic/wheezes. Cardiovascular: Regular rate and rhythm, normal S1-S2 upon ascultation. Abdomen: Soft, round, no pulsatile masses, nondistended and nontender. Extremities: No cyanosis, clubbing, or edema present. Pulses are palpable 2/2. Active ROM to all four extremities. Neuro: Alert and oriented x 4. PERRLA. Cranial nerves 2-12 intact without focal deficit. Skin: Warm, dry, and intact, without rash, erythema, or lesion. Psych: pleasant, cooperative, normal speech, normal affect, no hallucinations, no dysarthia DS: Data Data Completed and Pending Completed studies during hospitalization: Exam Type: CA echo doppler color flow Complete two-dimensional, color flow and Doppler transthoracic echocardiogram is performed. Staff Referring Physician: Miles Chau Software Development Engineer: Donna Ricks Attending Provider: Miles Chau Summary 1. Complete two-dimensional, color flow and Doppler transthoracic echocardiogram is performed. 2. There is normal biventricular size and systolic function. 3. There are no significant valvular abnormalities. Left Ventricle The left ventricle normal in size and systolic function. The left ventricular ejection fraction is visually estimated to be 60-65%. Right Ventricle The right ventricle is normal in size and systolic function. Left Atria The left atrium is normal size. Right Atria The right atrium is normal size. Atrial Septum The atrial septum is normal. Aortic Valve The aortic valve is trileaflet and sclerotic. There is no aortic stenosis. There is trace aortic regurgitation. Pulmonic Valve The pulmonic valve is not well visualized. There is trace pulmonic valve regurgitation. Mitral Valve The mitral valve is normal. There is trace mitral regurgitation. Tricuspid Valve The tricuspid valve is normal. There is trace tricuspid regurgitation. Pericardium/Pleural Pericardium is normal in appearance with no evidence for significant pericardial effusion. Inferior Vena Cava Dilated inferior vena cava with >50% collapse upon inspiration consistent with elevated right atrial pressure, 8 mmHg. Aorta The aortic root at the level of the sinus of Valsalva measures 3.2 cm in diameter. Labs on day of discharge: Labs from last 24 hours 07/05/25 03:33 WBC 11.3 H RBC 4.29 Hgb 12.1 Hct 37.4 MCV 87.2 MCH 28.2 MCHC 32.4 RDW 13.9 Plt Count 198 MPV 10.5 H Immature Gran % (Auto) 1.2 H Neut % (Auto) 87.8 H Lymph % (Auto) 7.8 L Jones % (Auto) 3.0 Eos % (Auto) 0.0 Baso % (Auto) 0.2 Lymph # (Auto) 0.88 L Jones # (Auto) 0.3 Eos # (Auto) 0.0 Baso # (Auto) 0.0 Abs Immat Gran (auto) 0.14 H Absolute Neuts (auto) 9.9 H Absolute Nucleated RBC 0.000 Nucleated RBC % 0.0 Sodium 136 L Potassium 3.8 Chloride 105 Carbon Dioxide 27 Anion Gap 4 BUN 24 H Creatinine 0.78 Estim Creat Clear Calc 65 Estimated GFR > 60 Glucose 125 H Calcium 8.5 Magnesium 2.0 Total Bilirubin 0.4 AST 33 ALT 20 Alkaline Phosphatase 52 Total Protein 5.7 L Albumin 3.2 L Preliminary micro results at discharge 07/02/25 09:04 - Preliminary Urine Clean Catch Gram negative bacilli isolated Procedures/Treatments: Cardiac Cath Procedure Note Date of procedure:: 07/04/25 Performing physician:: Julisa Kemp MD Indication:: CATHETERIZATION LABORATORY REPORT Procedure Date: 07/04/2025 Anesthesia: Versed and Fentanyl were ordered and given in my presence at 2:30 p.m., procedure ended at 3:04 p.m.. Supervision of nurse monitored moderate sedation with Versed and Fentanyl was provided for 34 minutes. Fentanyl: 100 mcg Versed: 1 mg Pre-op Diagnosis: NSTEMI COVID positive Post-op Diagnosis: NSTEMI Nonobstructive CAD Elevated LVEDP of 29 mm Hg COVID positive Procedure(s): Left heart catheterization with coronary angiography Ultrasound-guided right common femoral artery access Hemostasis of right common femoral artery with 6 [place] Angio-Seal Moderate sedation Access Site: Right radial artery Brief History and Clinical Indications: All risks, benefits and alternatives to left heart catheterization with or without percutaneous coronary intervention was discussed at length with the patient. Risk of complications including but not limited to bleeding, infection, arrhythmia, stroke, worsening kidney function, blood loss, groin hematoma, limb loss, emergency coronary artery bypass grafting, and even were discussed with the patient and all questions were answered. The patient understood and wished to proceed. Time out called, patient name, date of , medical record number, allergies, procedure performed, identify Peoplesoft Taleo Manager, patient and staff member concurred with accurate data, procedure carried on. Findings: LEFT HEART CATHETERIZATION FINDINGS: 1. Left main: The left main coronary artery is widely patent without any significant obstructive disease. 2. Left anterior descending: The LAD and the diagonal branches have no significant obstructive angiographic disease. 3. Left circumflex: The left circumflex artery has no significant obstructive disease. It gives off small OM branches. A small less than 2 mm OM branch has hazy appearance in the ostial to proximal vessel suggestive of thrombus versus calcium. This is the most likely culprit of patient's presentation. No intervention performed as this is a very small (less than 2 mm) and tortuous vessel. 4. Right coronary artery: The proximal RCA has 30% stenosis. The RCA is the dominant vessel. 5. Left ventricle: A. End-diastolic pressure 29 mmHg. B. LV gram deferred. C. No significant gradient across aortic valve on catheter pullback. 6. Opening AO pressure 155/98/120 5 mm Hg and closing AO pressure 162/78/111 mm Hg Description of Procedure: Informed consent signed and placed in the chart. Patient transferred to laborer wood preserving plant room. Prepped and draped in usual sterile fashion. 2% lidocaine in right groin area. Micropuncture needle used to access right common femoral artery with Seldinger technique under fluoroscopic guidance. J wire advanced, micropuncture cannula placed. Right iliofemoral angiogram performed, access confirmed and micropuncture cannula exchanged for 6-FR sheath. ? 6 [place] JL4 diagnostic catheter engaged Left Main Coronary Artery. Six [place] JR4 diagnostic catheter engaged Right Coronary Artery. Multiple orthogonal angiogram obtained and reviewed 6 [place] JR4 diagnostic catheter crossed aortic valve to obtain LVEDP, LV angiogram deferred. Hemostasis was achieved by 6 [place] Angio-Seal Assessment: -NSTEMI-most likely secondary to plaque rupture in the small (less than 2 mm) and tortuous OM branch of the LCX. No intervention performed as this is a small less than 2 mm vessel, appears tortuous, supplies only a small myocardial territory, has TAN 3 flow, and patient is without chest pain. -Nonobstructive CAD-30% stenosis in proximal RCA -Elevated LVEDP Post Operative Condition: Stable No significant blood loss Disposition: Floor/Home Plan: The patient will be monitored in the recovery area. DAPT for 1 year followed by ASA indefinitely. Continue aggressive medical therapy and risk factor modification. Check renal function in a.m. IV fluids normal saline at 100 mL/hour for 500 mL. Bedrest for 2 hours. TTE. Imaging Radiologist's impression: ITS Impressions Chest X-Ray 07/02/25 08:23 IMPRESSION: 1. No acute cardiopulmonary findings given portable technique. Abdomen/Pelvis CT 07/02/25 15:26 IMPRESSION: Right-sided obstructive uropathy. Incidental findings detailed above Pulmonary Perfusion Imaging 07/03/25 09:55 IMPRESSION: 1. Low probability for pulmonary embolism. Renal Ultrasound 07/03/25 15:16 Impression: Bilateral renal calculi, no hydronephrosis identified Chest CTA 07/04/25 08:37 IMPRESSION: 1. No pulmonary embolus. Discharge Plan Discharge Attending physician on discharge: Miles Chau Consulting providers: Paul Oviedo; Alexander Francisco Discharging Clinician: Miles Chau Anticipated Discharge Date/Time: 07/05/25 13:03 Patient Disposition: Home Activity: as tolerated Diet: heart healthy Patient Instructions: Antibiotic Form, Clopidogrel (By mouth), Heart Catheterization (DC), Thrombolysis (DC) Patient Language: [place] Stand Alone Forms: General Discharge Information Follow-up/Referrals: Paul Oviedo MD [Physician, Cardiology] - 2 Weeks Erick Nails MD [Primary Care Provider, Family Practice] - 1 Week Felisa Chen APRN [Advanced Practice Nurse, Urology] - 07/21/25 10:00 am Problems: Bilateral renal stones; Urinary incontinence, mixed Discharge Medications: New aspirin [Children's Aspirin] 81 mg Tablet,Chewable 81 mg PO DAILY@0800 Qty: 30 0RF clopidogrel 75 mg Tablet 75 mg PO QAM Qty: 30 0RF cefdinir 300 mg capsule 300 mg PO Q12H Qty: 8 0RF docusate sodium 100 mg Capsule 100 mg PO BID Qty: 30 0RF atorvastatin [Lipitor] 40 mg tablet 40 mg PO HS Qty: 30 0RF Continued cetirizine [Zyrtec] 10 mg tablet 10 mg PO DAILY PRN (Reason: allergy symptoms) fluticasone propionate 50 mcg/actuation spray,suspension 1 spray intranasal BID Rx Instructions: administer into each nostril acetaminophen 500 mg capsule 1,000 mg PO Q6H PRN (Reason: pain) Qty: 30 0RF lisinopril 40 mg tablet 40 mg PO . b.i.d. Qty: 180 3RF duloxetine [Cymbalta] 60 mg capsule,delayed release(DR/EC) 60 mg PO DAILY Qty: 90 3RF Rx Instructions: Patient will pay [place], 38 dollars for 90 days supply reported on good Rx metoprolol succinate 100 mg tablet extended release 24 hr 100 mg PO . q.h.s. Qty: 90 3RF Discontinued ibuprofen 600 mg tablet 600 mg PO TID PRN (Reason: pain) Qty: 30 0RF meloxicam 15 mg tablet 15 mg PO DAILY PRN (Reason: pain) Qty: 90 3RF atorvastatin 20 mg tablet 20 mg PO QHS Qty: 90 3RF Rx Instructions: switch from simvastatin because of drug interaction with amlodipine Other Ambulatory Orders: Basic Metabolic Panel (Routine) Timeframe: 1 Week Location: Determined by Patient Ordered By: Miles Chau Date of admission: 07/03/25 12:42 Primary Care Provider: Erick Nails Admitting Provider: Miles Chau Attending physician on admission: Miles Chau Condition: Improved
== END 2025-07-05 15:48 | disposition home or self-care (01) | DRG 280 ==
LOC: ANHED 13:33 → ANHIMU 15:11
PROVIDERS: Internal Medicine Interventional Cardiology; Nurse Practitioner; Nurse Practitioner Gerontology; Admitting Provider Internal Medicine; Emergency Provider Emergency Medicine; PCP Family Medicine; Visit Provider Internal Medicine
PROC: 4A023N7 Measurement of Cardiac Sampling and Pressure, Left Heart, Percutaneous Approach (ICD-10-PCS; CPT 93452; principal; 2025-07-04 14:30)
PROC: 4A023N7 Measurement of Cardiac Sampling and Pressure, Left Heart, Percutaneous Approach (ICD-10-PCS; 2025-07-04 14:30)
DX: I21.4 Non-ST elevation (NSTEMI) myocardial infarction (principal); U07.1 COVID-19; N39.0 Urinary tract infection, site not specified; I25.10 Atherosclerotic heart disease of native coronary artery without angina pectoris; I25.83 Coronary atherosclerosis due to lipid rich plaque; D50.9 Iron deficiency anemia, unspecified; F41.9 Anxiety disorder, unspecified; M54.50 Low back pain, unspecified; I10 Essential (primary) hypertension; E78.2 Mixed hyperlipidemia; N20.0 Calculus of kidney; N39.46 Mixed incontinence; Z82.49 Family history of ischemic heart disease and other diseases of the circulatory system
CPT/HCPCS: 36415; 71045; 71275; 74176; 76770; 78580; 80048; 80053; 80061; 81001; 82607; 82728; 82746; 83540; 83550; 83735; 83880; 84484; 85025; 85380; 85610; 85730; 87086; 87186; 93005; 93306; 93458; 94640; 96365; 96375; 99291; A9270; A9540; C1760; C1769; C1887; C1894; G0269; G0378; J0696; J1171; J1200; J1644; J2003; J2250; J2270; J2305; J2919; J3010; J7030; J7040; J7512; Q9967

== ENCOUNTER → 2025-07-20 11:00 | Outpatient (CLI) | payer MEDICARE, SELFPAY ==
--- NOTE | ~2025-07-20 | XR_ITS ---
Clinical history:Unilateral primary osteoarthritis the right knee EXAM:X-ray knee right minimum 4 views TECHNIQUE:4 images of the right knee were obtained. Comparisons:None available FINDINGS: Bones appear osteopenic. Severe narrowing of the medial compartment and patellofemoral joint. Small suprapatellar effusion. No fracture. No dislocation. Spurring of the tibial spines. Mild narrowing of the lateral compartment. Soft tissue swelling about the right knee. IMPRESSION: 1. No fracture identified. 2. Severe narrowing of the medial compartment and patellofemoral joint. If symptoms persist or worsen, consider a short-term follow-up study or additional imaging for further assessment. Reviewed, dictated and finalized at location Q. IMPRESSION: 1. No fracture identified. 2. Severe narrowing of the medial compartment and patellofemoral joint. If symptoms persist or worsen, consider a short-term follow-up study or additio nal imaging for further assessment.
== END ==
LOC: EXPTRAD 11:02
PROVIDERS: PCP Family Medicine; Referring Provider Family Medicine; Visit Provider Family Medicine
DX: M17.11 Unilateral primary osteoarthritis, right knee (principal)
CPT/HCPCS: 73564

== ENCOUNTER 2025-08-23 10:28 | Outpatient (CLI) | payer MEDICARE, SELFPAY ==
--- NOTE | ~2025-08-23 | US_ITS ---
EXAMINATION: US venous doppler E DATE: 08/23/2025 11:28 INDICATION: Left upper limb pain TECHNIQUE: Grayscale images without and with compression and Doppler images of the left upper extremity veins were obtained. COMPARISON: None. FINDINGS: Noncompressible occlusive appearing thrombus in the left cephalic vein. The left internal jugular vein, subclavian vein, axillary vein, brachial vein, basilic vein, radial vein, and ulnar vein are patent. IMPRESSION: 1. Occlusive venous thrombosis of the left cephalic vein. The patient was held in the department pending notification of the nurse practitioner for Dr. Oviedo. Reviewed, dictated and finalized at location A. SER IMPRESSION: 1. Occlusive venous thrombosis of the left cephalic vein. The patient was held in the department pending notification of the nurse practitioner for Dr. Dionte vicente.
--- OUTSIDE RECORDS SUMMARY | 2025-08-23 11:03 | XMS_ITS | Encounter Summary ---
Author Organization [facility] Address 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
--- OUTSIDE RECORDS SUMMARY | 2025-08-23 11:03 | XMS_ITS | Encounter Summary ---
Author Organization [facility] Address [address] [place] [address] Care Team Providers Care Building And Construction Manager Name Role Phone Unavailable Primary Care Provider [...] on file Legal Sex Female 4:37 AM SENIOR DATA ARCHITECT Gender Identity Not on file Sexual Orientation Not on file documented as of this encounter Plan of Treatment Not on file documented as of this encounter Visit Diagnoses Not on filedocumented in this encounter
--- OUTSIDE RECORDS SUMMARY | 2025-08-23 11:03 | XMS_ITS | Clinical Summary ---
Author Organization [facility] [place] [address] Address [address] [place] [address] Care Team Providers Care Supervisor Aircraft Cleaning Name Role Phone Erick Nails MD Primary Care Provider [phone] Allergies Active Allergy Reactions Criticality Noted Date Comments Adhesive Rash,Blisters High 08/04/2025 Iodinated Contrast Media Rash Medium Latex Rash Medium Oxycodone Itching,Agitation High 07/20/2025 Povidone-Iodine Rash Medium Medications atorvastatin (LIPITOR) 40 mg tablet Take 1 tablet (40 mg total) by mouth nightly [address] (CYMBALTA) 60 mg capsule Take 1 capsule (60 mg total) by mouth daily 4 Active lisinopriL (PRINIVIL,ZESTR IL) 40 mg tablet Take 1 tablet (40 mg total) by mouth 2 (two) times a day 4 Active metoprolol XL (TOPROL-XL) 100 mg 24 hr tablet Take 1 tablet (100 mg total) by mouth daily 5 Active traMADoL (ULTRAM) 50 mg tablet Take 1 tablet (50 mg total) by mouth 5 Active clopidogreL (PLAVIX) 75 mg tabletIndicatio ns:Acute Coronary Syndrome Take 1 tablet (75 mg total) by mouth daily 90 tablet 3 5 Active aspirin 81 mg chewable tabletIndicatio ns:Coronary artery disease involving [place] coronary artery of [place] heart without angina pectoris Take 1 tablet (81 mg total) by mouth daily 90 tablet 3 Active aspirin 81 mg chewable tablet Take 1 tablet (81 mg total) by mouth daily 5 08/04/20 Discontinu ed(Reorder ) clopidogreL (PLAVIX) 75 mg tablet Take 1 tablet (75 mg total) by mouth daily 08/04/20 Discontinu ed(Reorder ) Active Problems No known active problems Encounters Date Type Department Care Team Description 08/04/2025 10:00 AM CDT Office Visit [facility] Cardiology [address] [facility] [address] [place] [id number] Belem Stevens NP Coronary artery disease involving [place] coronary artery of [place] heart without angina pectoris (Primary Dx); History of non-ST elevation myocardial infarction (NSTEMI); History of COVID-19; Hospital discharge follow-up; Pain in left arm 08/04/2025 Orders Only [facility] Cardiology [address] [place] [address] [place] [phone] ProviderJadiel MD 07/05/2025 Telephone [facility] Cardiology [address] [facility] [address] [place] [phone] Patito Browning NP 07/05/2025 Orders Only [facility] Cardiology [address] [place] [address] [address] [place] [phone] Paul Oviedo MD from Last 3 Months Medical History Medical History Date Comments Hypertension Hyperlipidemia Kidney stones Gout Family History Medical History Relation Name Comments Heart disease Brother Hypertension Brother Hypertension Father cardiac arrest Father COPD Mother Heart disease Mother Hypertension Mother Relation Name Status Comments Brother Father Mother Social History Tobacco Use Types Packs/Day Years Used Date Smoking Tobacco: Never Passive Smoke Exposure: Past Smokeless Tobacco: Never Tobacco Cessation:Counseling Given: Not Answered Comments Unknown Sex and Gender Information Value Date Recorded Sex Assigned at Not on file 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 Gender Identity Not on file Sexual Orientation Not on file Last Filed Vital Signs Vital Sign Reading Time Taken Comments Blood Pressure 136/80 08/04/2025 10:09 AM CDT Pulse 69 08/04/2025 10:09 AM CDT Temperature - - Respiratory Rate - - Oxygen Saturation 97% 08/04/2025 10:09 AM CDT Inhaled Oxygen Concentration - - Weight 88.9 kg (196 lb) 08/04/2025 10:09 AM CDT Height 165.1 cm (5' 5) 08/04/2025 10:09 AM CDT Body Mass Index 32.62 08/04/2025 10:09 AM CDT Plan of Treatment Health Maintenance Due Date Last Done Comments Breast Cancer Screening-Mammogram 1955 Colon Cancer Screening-Colonoscopy 1955 Depression Screening 1955 Fall Risk Assessment 1955 Hepatitis C Screening 1955 Osteoporosis Screening-Bone Density Scan 1955 DTaP/Tdap/Td Vaccine (1 - Tdap) 1966 Hepatitis B Screening 1973 Zoster Vaccine (1 of 2) 2005 Well Visit 65+ 01/15/2020 Pneumococcal vaccine 65+ (2 of 2 - PCV) 08/25/2021 08/25/2020 Influenza Vaccine (#1) 2025 2, 08/07/2021, 08/04/2020 Procedures Procedure Name Priority Date/Time Associated Diagnosis Comments CARDIOLOGY DOCUMENT SCAN Routine 07/04/2025 10:16 AM CDT LIPID PANEL Routine 07/03/2025 4:07 PM CDT CARDIOLOGY DOCUMENT SCAN Routine 07/03/2025 10:14 AM CDT from Last 3 Months Results * Cardiology Document Scan (07/04/2025 10:16 AM CDT) Anatomical Region Laterality Modality Other us Julisa Kemp MD [facility] PROCEDU RES Final Result * Lipid panel (07/03/2025 4:07 PM CDT) SCRIBED Cholesterol, Total 178 30 - 199 mg/dL EXTERNAL LAB SCRIBED Triglycerides 62 <=149 mg/dL EXTERNAL LAB SCRIBED HDL 47 >=40 mg/dL EXTERNAL LAB SCRIBED LDL 96 <=129 mg/dL EXTERNAL LAB Scribed Non-HDL Cholesterol EXTERNAL LAB Comment:Not performed by lab . SCRIBED Total Cholesterol/HDL Ratio 178 NONE EXTERNAL LAB Blood Historical Provider LAB BLOOD ORDERABLES Edit ed Result - Final EXTERNAL LAB * Cardiology Document Scan (07/03/2025 10:14 AM CDT) Anatomical Region Laterality Modality Other Paul Oviedo MD [facility] CARDIAC SERVICES PROC EDURES Final Result from Last 3 Months Insurance [facility] MEDICARE ADVANTAGE [facility] Address: [facility] [id number] [place] [phone] Care Teams Supervisor Aircraft Cleaning Relationship Specialty Start Date End Date Erick Nails MD [address] [address] PCP - General 09/11/11
--- OUTSIDE RECORDS SUMMARY | 2025-08-23 11:03 | XMS_ITS | Clinical Summary ---
Author Organization [facility] Address [facility] [place] [address] Care Team Providers Care Metal Fabricating Supervisor Name Role Phone Unavailable Primary Care [...] Scan (General) 01/15/2020 COVID-19 Vaccine ( - 2024-2 6 season) 2025 Influenza Adult (#1) 2025 RSV Immunization or 60+ Years (1 - 1-dose 75+ series) 2030 Hepatitis A Vaccines Aged Out No long er eligible based on patient's age to complete this topic Meningococcal B Vaccine Aged Out No l onger eligible based on patient's age to complete this topic Meningococcal Vaccine Aged Out No vasyl rekha eligible based on patient's age to complete this topic RSV Immunizations Under 20 Months Aged Out No longer eligible based on patient's age to complete this topic
--- OUTSIDE RECORDS SUMMARY | 2025-08-23 11:03 | XMS_ITS | Encounter Summary ---
Author Organization [facility] Address 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
--- OUTSIDE RECORDS SUMMARY | 2025-08-23 11:03 | XMS_ITS | Clinical Summary ---
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
--- OUTSIDE RECORDS SUMMARY | 2025-08-23 11:03 | XMS_ITS | Encounter Summary ---
Author Organization [facility] Address 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
--- OUTSIDE RECORDS SUMMARY | 2025-08-23 11:03 | XMS_ITS | Encounter Summary ---
Author Organization [facility] Address [address] [place] [address] Care Team Providers Care Cam Maker Name Role Phone Unavailable Primary Care Provider Unavailabl e Encounter Details Date Type Department Care Team (Late st Contact Info) Description 07/10/2006 Outpatient Historical [facility] [place] 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
--- OUTSIDE RECORDS SUMMARY | 2025-08-23 11:03 | XMS_ITS | Encounter Summary ---
Author Organization [facility] Address [address] [place] [address] Care Team Providers Care Supervisor Beater Room Name Role Phone Unavailable Primary Care Provider Unavailabl e Encounter Details Date Type Department Care Team (Late st Contact Info) Description 06/20/2006 Outpatient Historical [facility] [place] 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
== END 2025-08-23 10:29 | disposition home or self-care (01) ==
PROVIDERS: PCP Family Medicine; Visit Provider Nurse Practitioner Adult Health
DX: M79.602 Pain in left arm (principal); I82.612 Acute embolism and thrombosis of superficial veins of left upper extremity
CPT/HCPCS: 93971